=== PATIENT | female | born 1945 | race Caucasian/White ===

== ENCOUNTER 2017-11-04 11:56 | Emergency (ER) | payer MEDICARE, SELFPAY ==
[2017-11-04 12:01] VITALS: BP 135/87; PULSE 100; RESP 20; TEMP 36.9; O2SAT 100; BMI 18.0
--- NOTE | 2017-11-04 13:28 | ED_ITS ---
HPI - Abdominal Pain <Iraida Fitzpatrick PA-C - Last Filed: 11/04/17 17:03> General Chief Complaint: Abdominal Pain Stated Complaint: dizziness, nausea Time Seen by Provider: 11/04/17 12:24 Source: patient Mode of arrival: ambulatory Limitations: no limitations History of Present Illness HPI narrative: This 71-year-old female complains of nausea and generalized weakness for the last 2 days. She states that she has been very stressed and anxious because she is in the process of moving, and she thinks that this is exacerbating her symptoms. She states that she has had some mild dry heaves at times but has not had vomiting. She denies any abdominal pain. She denies any changes in bowel movements, no urinary symptoms. She states she has had some intermittent chills and sweats but does not have a thermometer at home. She denies any chest pain, dyspnea, or wheeze. She states that she feels weak all over but not dizzy per se or faint. She denies feeling overtly suicidal, does admit that she is still feeling overwhelmed. Related Data Previous Rx's Medication Instructions Recorded amoxicillin-pot clavulanate 875 mg PO BID #20 tab 08/19/17 [Augmentin] lorazepam [Ativan] 1 mg PO BIDP PRN #5 tab 08/19/17 metoprolol tartrate 25 mg PO BID #30 tab 08/19/17 ondansetron [Zofran ODT] 4 mg PO Q6H PRN #5 tab 11/04/17 Allergies Allergy/AdvReac Type Severity Reaction Status Date / Time No Known Drug Allergies Allergy Verified 11/04/17 12:01 Review of Systems <Iraida Fitzpatrick PA-C - Last Filed: 11/04/17 17:03> Review of Systems All systems reviewed & are unremarkable except as noted in HPI and below Exam <Iraida Fitzpatrick PA-C - Last Filed: 11/04/17 17:03> Narrative Exam Narrative: GENERAL APPEARANCE: Patient appears comfortable resting in bed, intermittently tearful HEENT: PERRL, EOMI, no scleral icterus NECK: Supple LUNGS: Clear to auscultation bilaterally, coarse breath sounds. HEART: Rate and rhythm regular, normal S1 and S2, no S3 or S4. ABDOMEN: Soft, nontender, nondistended, bowel sounds present x 4 quadrants, no masses palpable, no hepatosplenomegaly. EXTREMITIES: No edema, no cyanosis DERMATOLOGIC: No jaundice or exanthem NEUROLOGIC: Alert and oriented with normal speech and coordination Initial Vital Signs Initial Vital Signs: Vital Signs Temperature 98.4 F 11/04/17 12:01 Pulse Rate 100 H 11/04/17 12:01 Respiratory Rate 20 11/04/17 12:01 Blood Pressure 135/87 H 11/04/17 12:01 Pulse Oximetry 100 11/04/17 12:01 <Harry Buck MD - Last Filed: 11/04/17 17:50> Initial Vital Signs Initial Vital Signs: Vital Signs Temperature 98.4 F 11/04/17 12:01 Pulse Rate 100 H 11/04/17 12:01 Respiratory Rate 20 11/04/17 12:01 Blood Pressure 135/87 H 11/04/17 12:01 Pulse Oximetry 100 11/04/17 12:01 Course <Iraida Fitzpatrick PA-C - Last Filed: 11/04/17 17:03> Hospital Course: Prior to discharge patient is sleeping comfortably and has not had any vomiting. Tolerating oral fluids and crackers. She did not give me a pharmacy for prescription but I did print a prescription for her for some Zofran in case she does want to pickle pumper. Orders Ordered: ED Orders 11/04/17 13:11 Complete Blood Count AUTO DIFF Stat Comprehensive Metabolic Panel Stat Lipase Stat Discontinued Medications Sodium Chloride (Normal Saline 0.9%) 500 mls @ 1,000 mls/hr IV BOLUS ONE Stop: 11/04/17 14:15 Last Infusion: 11/04/17 14:26 Dose: 0 mls/hr Admin: 11/04/17 13:54 Dose: 1,000 mls/hr Sodium Chloride (Normal Saline 0.9%) 500 mls @ 1,000 mls/hr IV BOLUS ONE Stop: 11/04/17 14:26 Last Infusion: 11/04/17 15:10 Dose: 0 mls/hr Admin: 11/04/17 14:26 Dose: 1,000 mls/hr Ondansetron HCl (Zofran) 4 mg IV NOW ONE Stop: 11/04/17 13:47 Last Admin: 11/04/17 13:54 Dose: 4 mg Vital Signs - 8 hr 11/04/17 12:01 11/04/17 14:48 Temperature 98.4 F Pulse Rate 100 H 70 Respiratory Rate 20 17 Blood Pressure 135/87 H Blood Pressure [Left Arm] 137/97 H Pulse Oximetry 100 98 <Harry Buck MD - Last Filed: 11/04/17 17:50> Orders Ordered: ED Orders 11/04/17 13:11 Complete Blood Count AUTO DIFF Stat Comprehensive Metabolic Panel Stat Lipase Stat Discontinued Medications Sodium Chloride (Normal Saline 0.9%) 500 mls @ 1,000 mls/hr IV BOLUS ONE Stop: 11/04/17 14:15 Last Infusion: 11/04/17 14:26 Dose: 0 mls/hr Admin: 11/04/17 13:54 Dose: 1,000 mls/hr Sodium Chloride (Normal Saline 0.9%) 500 mls @ 1,000 mls/hr IV BOLUS ONE Stop: 11/04/17 14:26 Last Infusion: 11/04/17 15:10 Dose: 0 mls/hr Admin: 11/04/17 14:26 Dose: 1,000 mls/hr Ondansetron HCl (Zofran) 4 mg IV NOW ONE Stop: 11/04/17 13:47 Last Admin: 11/04/17 13:54 Dose: 4 mg Vital Signs - 8 hr 11/04/17 12:01 11/04/17 14:48 Temperature 98.4 F Pulse Rate 100 H 70 Respiratory Rate 20 17 Blood Pressure 135/87 H Blood Pressure [Left Arm] 137/97 H Pulse Oximetry 100 98 MDM - Abdominal Pain <Iraida Fitzpatrick PA-C - Last Filed: 11/04/17 17:03> Lab Data Attestation: I reviewed the patient's lab results. Result diagrams: 11/04/17 13:11 11/04/17 13:11 Lab Results 11/04/17 11/04/17 Range/Units 13:11 13:11 WBC 7.5 (4.5-11.0) X10^3/uL RBC 4.49 (4.0-5.2) X10^6/uL Hgb 13.9 (12.0-16.0) g/dL Hct 41.0 (36-46) % MCV 91.3 (80-100) fL MCH 31.1 (26-34) PG MCHC 34.0 (30-36) % RDW 13.9 (11.6-14.8) % Plt Count 305 (150-400) X10^3/uL Neut % (Auto) 69.4 (50-75) % Lymph % (Auto) 21.5 L (25-40) % [place] % (Auto) 5.9 (3-14) % Eos % (Auto) 2.4 (2-4) % Baso % (Auto) 0.8 (0-2) % Neut # (Auto) 5200 (2269-5675) /uL Sodium 141 (137-145) mmol/L Potassium 4.0 (3.4-5.1) mmol/L Chloride 105.0 (98-107) mmol/L Carbon Dioxide 23.0 (22-32) mmol/L BUN 18.0 H (7-17) mg/dL Creatinine 0.80 (0.52-1.04) mg/dL Estimated GFR > 60.0 (>60) mL/min BUN/Creatinine Ratio 22.5 H (6-22) Glucose 97 (80-110) mg/dL Calcium 8.8 (8.4-10.2) mg/dL Total Bilirubin 0.9 (0.2-1.3) mg/dL AST 29 (14-36) IU/L ALT 34 (9-52) IU/L Alkaline Phosphatase 78 (38-126) U/L Total Protein 7.2 (6.3-8.2) g/dL Albumin 4.0 (3.5-5.0) g/dL Globulin 3.2 (1.7-4.1) g/dL Albumin/Globulin Ratio 1.3 (1.0-2.8) Lipase 217 (23-300) U/L <Harry Buck MD - Last Filed: 11/04/17 17:50> Lab Data Lab Results 11/04/17 11/04/17 Range/Units 13:11 13:11 WBC 7.5 (4.5-11.0) X10^3/uL RBC 4.49 (4.0-5.2) X10^6/uL Hgb 13.9 (12.0-16.0) g/dL Hct 41.0 (36-46) % MCV 91.3 (80-100) fL MCH 31.1 (26-34) PG MCHC 34.0 (30-36) % RDW 13.9 (11.6-14.8) % Plt Count 305 (150-400) X10^3/uL Neut % (Auto) 69.4 (50-75) % Lymph % (Auto) 21.5 L (25-40) % [place] % (Auto) 5.9 (3-14) % Eos % (Auto) 2.4 (2-4) % Baso % (Auto) 0.8 (0-2) % Neut # (Auto) 5200 (0551-9553) /uL Sodium 141 (137-145) mmol/L Potassium 4.0 (3.4-5.1) mmol/L Chloride 105.0 (98-107) mmol/L Carbon Dioxide 23.0 (22-32) mmol/L BUN 18.0 H (7-17) mg/dL Creatinine 0.80 (0.52-1.04) mg/dL Estimated GFR > 60.0 (>60) mL/min BUN/Creatinine Ratio 22.5 H (6-22) Glucose 97 (80-110) mg/dL Calcium 8.8 (8.4-10.2) mg/dL Total Bilirubin 0.9 (0.2-1.3) mg/dL AST 29 (14-36) IU/L ALT 34 (9-52) IU/L Alkaline Phosphatase 78 (38-126) U/L Total Protein 7.2 (6.3-8.2) g/dL Albumin 4.0 (3.5-5.0) g/dL Globulin 3.2 (1.7-4.1) g/dL Albumin/Globulin Ratio 1.3 (1.0-2.8) Lipase 217 (23-300) U/L Discharge Plan Departure Patient Disposition: Home, Self-Care Clinical Impression: Nausea alone, Dehydration Discharge Date/Time: 11/04/17 15:42 Interventions: ED Discharge Assessment Last Done: 11/04/17 15:41 Instructions: DI for Nausea -- Adult Activity Restrictions/Additional Instructions: Please drink plenty of clear fluids today. Have small, frequent, bland snacks, such as crackers, broth, bananas. Add back eggs, baked potato, white rice, white bread and other bland foods 1st to make sure that you can tolerate your usual diet. Return if you have any acutely worsening symptoms. Prescriptions: New ondansetron [Zofran ODT] 4 mg tablet,disintegrating 4 mg PO Q6H PRN (Reason: nausea) Qty: 5 RF: 0 No Action lorazepam [Ativan] 1 MG tablet 1 mg PO BIDP PRNQty: 5 RF: 0 amoxicillin-pot clavulanate [Augmentin] 875 MG/125 MG tablet 875 mg PO BID Qty: 20 RF: 0 metoprolol tartrate 25 MG tablet 25 mg PO BID Qty: 30 RF: 0 Referrals: Michelle Zimmerman ND [Non-Staff] - <Harry Buck MD - Last Filed: 11/04/17 17:50> Cosign ED Attending Cosignature Attestation: I was the attending of record and available in the ED. I attest to the documentation and agree with the assessment and plan.
[2017-11-04] MEDS: ONDANSETRON 4 MG/2 ML INJ IV (13:54)
[2017-11-04] MEDS: SODIUM CHLORIDE 0.9% 500 ML 1000 ML IV ×2 (13:54→14:26)
[2017-11-04 14:07] LABS: Add Manual Diff / Slide Review NO; Basophils Percent Auto 0.8 % (0-2); Eosinophils Percent Auto 2.4 % (2-4); Hemoglobin 13.9 g/dL (12.0-16.0); Lymphocytes Percent Auto 21.5 % (25-40); Mean Corpuscular Hemoglobin 31.1 PG (26-34); Mean Corpuscular Volume 91.3 fL (80-100); Monocytes Percent Auto 5.9 % (3-14); Neutrophils Absolute Auto 5200 /uL (3000-5900); Neutrophils Percent Auto 69.4 % (50-75); Platelet Count 305 X10^3/uL (150-400); Red Blood Cell Count 4.49 X10^6/uL (4.0-5.2); Red Cell Distribution Width 13.9 % (11.6-14.8); White Blood Cell Count 7.5 X10^3/uL (4.5-11.0)
[2017-11-04 14:10] LABS: HEMOLYSIS < 15 (0-50); Sodium 141 mmol/L (137-145)
[2017-11-04 14:27] LABS: Alanine Aminotransferase 34 IU/L (9-52); Albumin Globulin Ratio 1.3 (1.0-2.8); Alkaline Phosphatase 78 U/L (38-126); Aspartate Aminotransferase 29 IU/L (14-36); BUN Creatinine Ratio 22.5 (6-22); Bilirubin Total 0.9 mg/dL (0.2-1.3); Calcium 8.8 mg/dL (8.4-10.2); Estimated Glomerular Filt Rate > 60.0 mL/min (>60); Globulin 3.2 g/dL (1.7-4.1); Glucose 97 mg/dL (80-110); Lipase 217 U/L (23-300); Total Protein 7.2 g/dL (6.3-8.2)
[2017-11-04 14:48] VITALS: BP 137/97; PULSE 70; RESP 17; O2SAT 98
== END 2017-11-04 15:42 | disposition home or self-care (01) ==
PROVIDERS: Emergency Provider Internal Medicine
DX: R11.0 Nausea (principal); E86.0 Dehydration
CPT/HCPCS: 80053; 83690; 85025; 96361; 96374; 99283; 99284; J2405

== ENCOUNTER 2018-03-05 03:28 | Emergency (ER) | payer MEDICARE, SELFPAY ==
[2018-03-05 04:01] VITALS: BP 160/100; PULSE 101; RESP 20; TEMP 36.7; O2SAT 98; BMI 19.7
[2018-03-05] MEDS: IBUPROFEN 400 MG TABLET 800 MG PO (04:43)
[2018-03-05] MEDS: LORazepam 0.5 MG TABLET 1 MG PO (04:43)
[2018-03-05 04:55] LABS: Add Manual Diff / Slide Review NO; Basophils Percent Auto 0.9 % (0-2); Eosinophils Percent Auto 4.2 % (2-4); Hematocrit 34.8 % (36-46); Hemoglobin 11.7 g/dL (12.0-16.0); Lymphocytes Percent Auto 26.4 % (25-40); Mean Corpuscular HGB Conc 33.7 % (30-36); Mean Corpuscular Hemoglobin 31.3 PG (26-34); Monocytes Percent Auto 9.4 % (3-14); Neutrophils Absolute Auto 4700 /uL (3000-5900); Neutrophils Percent Auto 59.1 % (50-75); Platelet Count 196 X10^3/uL (150-400); Red Blood Cell Count 3.74 X10^6/uL (4.0-5.2); Red Cell Distribution Width 14.4 % (11.6-14.8)
[2018-03-05 04:59] LABS: Alanine Aminotransferase 32 IU/L (9-52); Albumin 4.2 g/dL (3.5-5.0); Albumin Globulin Ratio 1.4 (1.0-2.8); Alkaline Phosphatase 63 U/L (38-126); Aspartate Aminotransferase 34 IU/L (14-36); Bilirubin Total 0.8 mg/dL (0.2-1.3); Blood Urea Nitrogen 23 mg/dL (7-17); Calcium 8.7 mg/dL (8.4-10.2); Carbon Dioxide 26 mmol/L (22-32); Chloride 109 mmol/L (98-107); Estimated Glomerular Filt Rate 54.8 mL/min (>60); Ethanol (ETOH) < 10 mg/dL; Globulin 2.9 g/dL (1.7-4.1); Glucose 103 mg/dL (80-110); HEMOLYSIS < 15 (0-50); Potassium 3.5 mmol/L (3.4-5.1); Sodium 146 mmol/L (137-145); Total Protein 7.1 g/dL (6.3-8.2)
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
[2018-03-05 05:34] LABS: Thyroid Stimulating Hormone 0.53 uIU/mL (0.47-4.68)
--- NOTE | 2018-03-05 07:42 | PC.NURSE ---
social service to see
[2018-03-05 08:12] VITALS: BP 150/96; PULSE 78; RESP 18; O2SAT 98
[2018-03-05 08:31] LABS: Urine Amphetamines Positive (Negative); Urine Barbiturates Negative (Negative); Urine Benzodiazepines Positive (Negative); Urine Cocaine Negative (Negative); Urine MDMA Negative (Negative); Urine Methadone Negative (Negative); Urine Methamphetamines Positive (Negative); Urine Morphine/Opi cutoff 2000 Negative (Negative); Urine Phencyclidine Negative (Negative); Urine Tetrahydrocannabinol Negative (Negative)
[2018-03-05 08:32] LABS: Urine Oxycodone Negative (Negative); Urine Tricyclic Antidepressant Negative (Negative)
--- NOTE | 2018-03-05 11:17 | PC.NURSE ---
social service here/ states will attempt for bed
[2018-03-05 11:21] LABS: Acetaminophen < 10 ug/mL (10-30)
[2018-03-05 11:22] LABS: Salicylate < 1.0 mg/dL (<20)
--- NOTE | 2018-03-05 12:03 | PC.NURSE ---
sitter here to observe pt 1:1, in room 8, sliding door partially closed/ pt not involunary at this point. has been sleeping/ no restraint.
--- NOTE | 2018-03-05 12:16 | PC.NURSE ---
Pt sleeping, respirations even/unlabored.
--- NOTE | 2018-03-05 12:33 | PC.NURSE ---
Pt sleeping, respirations even/unlabored.
--- NOTE | 2018-03-05 12:43 | PC.NURSE ---
Pt is awake, eating lunch, and was given water.
--- NOTE | 2018-03-05 12:52 | PC.NURSE ---
Pt sleeping again, respirations continue to be even/unlabored.
--- NOTE | 2018-03-05 13:09 | PC.NURSE ---
Pt awake and continuing to eat lunch.
--- NOTE | 2018-03-05 13:22 | PC.NURSE ---
Pt is eating lunch and given an additional 400ml of water.
--- NOTE | 2018-03-05 13:27 | PC.NURSE ---
Pt sleeping again, respirations continue to be even/unlabored.
--- NOTE | 2018-03-05 13:42 | PC.NURSE ---
Pt sleeping, respirations even/unlabored.
--- NOTE | 2018-03-05 14:30 | PC.NURSE ---
Pt woke up to talk to D/C Regrinder Operator, and then wanted to call friends/family to let them know what was going on. She wasn't able to reach them and said she would try later.
[2018-03-05] MEDS: ACETAMINOPHEN 325 MG TABLET 650 MG PO (14:45)
--- NOTE | 2018-03-05 14:51 | PC.NURSE ---
Pt is resting, breathing remains constant and unlabored.
[2018-03-05 15:02] VITALS: BP 114/84; PULSE 77; RESP 20; TEMP 36.7; O2SAT 99
--- NOTE | 2018-03-05 15:16 | PC.NURSE ---
Pt sleeping, respirations even/unlabored.
--- NOTE | 2018-03-05 15:34 | PC.NURSE ---
Pt sleeping, respirations even/unlabored.
--- NOTE | 2018-03-05 16:24 | CM.SWNOTE ---
FUSELAGE FRAMER/Note: Received call from ED staff this AM re: suicidal 72yr old female. Patient came to . Emergency Department reporting depression and that she feels like harming herself. Primary payor is 1)Medicare. No PCP identified. 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 Patient requiring 1mg of lorazepam at approximately 7:00am for agitation. FUSELAGE FRAMER met with patient explained FUSELAGE FRAMER role. Patient slightly drowsy at time of visit but easily to arouse. Patient reports that she has been homeless for 2 days. Patient was staying with ex boyfriend/Ephraim but reports that he was drinking a lot and she wanted to leave. Patient very difficult to understand secondary to being tearful, anxious, and upset. Patient also appears very forgetful of events unclear if this is purposeful. Patient denies being on any current medication and is not being seen by PCP or mental health provider. FUSELAGE FRAMER called [facility] to verify. They do have patient in system but she is not enrolled. Patient admits to depression since 7th grade. Patient does report that she has had previous suicide attempts but does not remember when. FUSELAGE FRAMER asked patient if she was currently suicidal or felt like killing herself. Patient answered yes. Asked patient about current plan. Patient reports that she will go to the drug store and buy over the counter medicine and take as much as she needs too. Patient agreeable to get assistance and go inpatient for mental health stabilization. Placed call to state and they report that [facility] has bed. Placed call spoke with Jacqueline. All clinical faxed to [phone]. After review by [facility] they have agreed to accept. Accepting MD is Dr. Severino. Patient going to [facility] in [place]: [id number] [address] [facility]# [phone]. RN/Rosenda given number to call report. Patient provided with brochure for facility. ED staff to coordinate non-urgent BLS transport. No additional needs identified. JABIER Miller
== END 2018-03-05 15:55 ==
PROVIDERS: Emergency Medicine; Emergency Provider Emergency Medicine
DX: R45.851 Suicidal ideations (principal)
CPT/HCPCS: 36415; 80053; 80305; 80320; 80329; 84443; 85025; 99284; G0480

== ENCOUNTER 2018-05-20 16:49 | Emergency (ER) | payer MEDICARE, SELFPAY ==
[2018-05-20 16:58] VITALS: BP 139/103; PULSE 90; RESP 18; TEMP 36.6; O2SAT 95; BMI 18.8
--- NOTE | 2018-05-20 17:39 | ED.SKABFB ---
HPI - Skin/Abscess/Foreign Bdy <JAQUELIN Mendez - Last Filed: 05/20/18 18:05> General Chief complaint: Skin/Abscess/Foreign Body Stated complaint: sore on back Time Seen by Provider: 05/20/18 17:26 Source: patient Mode of arrival: ambulatory Limitations: no limitations History of Present Illness HPI narrative: Patient is a 72 year-old female with history of depression who is an everyday smoker who presents with chief complaint of rash on her lower going around the right side to her inguinal area. She states this started 3-4 days ago. She states it is blistery and crusty. She denies any chest pain shortness of breath fevers malaise nausea vomiting or diarrhea. She states that the area is very painful prior to the rash developing. Related Data Previous Rx's Medication Instructions Recorded gabapentin 100 mg PO TID #20 cap 05/20/18 lidocaine 2 patch TOP DAILY #15 each 05/20/18 prednisone 40 mg PO DAILY #8 tab 05/20/18 valacyclovir 1,000 mg PO TID 10 Days #30 tab 05/20/18 Allergies Allergy/AdvReac Type Severity Reaction Status Date / Time No Known Drug Allergies Allergy Verified 05/20/18 17:00 Review of Systems <CHARLOTTE Mendez - Last Filed: 05/20/18 18:05> Review of Systems GENERAL: Denies chills, fatigue, malaise, fever, sweats. HEENT: Denies sinus pain, ear pain, sore throat, difficulty swallowing, dizziness. RESPIRATORY: Denies dyspnea, cough, wheezing, hemoptysis, sputum. CARDIOVASCULAR: Denies chest pain, palpitations, orthopnea, edema, GASTROINTESTINAL: Denies nausea, vomiting, abdominal pain, diarrhea, constipation, melena. : Denies dysuria, frequency, incontinence, hematuria, urinary retention. MUSCULOSKELETAL: denies weakness, joint pain, or bony pain SKIN: See HPI NEUROLOGIC: Denies weakness, headache, numbness, change in speech, confusion, seizures, incoordination. PSYCHIATRIC: No concerning psychosocial issues. 12 point review of systems is negative except for those stated above Exam <CHARLOTTE Mendez - Last Filed: 05/20/18 18:05> Narrative Exam Narrative: GENERAL: elderly thin woman. HEAD: Atraumatic. Normocephalic. No temporal or scalp tenderness. EYES: Pupils equal round and reactive. Extraocular motions intact. No scleral icterus. No injection or drainage. ENT: Nose without bleeding, purulent drainage or septal hematoma. Throat without erythema, tonsillar hypertrophy or exudate. Uvula midline. Airway patent. NECK: Trachea midline. No JVD or lymphadenopathy. Supple, nontender, no meningeal signs. CARDIOVASCULAR: Regular rate and rhythm without murmurs, gallops, or rubs. RESPIRATORY: No increased respiratory effort. No accessory muscle use. No cough on exam. EXTREMITIES: No clubbing, cyanosis, or edema. No joint tenderness, effusion, or edema noted. BACK: Nontender without deformity or crepitance. No flank tenderness. NEURO: AOx3. SKIN: vesicular rash starting on right gluteal area reaching around to right inguinal area. Multiple pustules and crusting noted. No spreading erythema. Initial Vital Signs Initial Vital Signs: Vital Signs Temperature 97.8 F 05/20/18 16:58 Pulse Rate 90 05/20/18 16:58 Respiratory Rate 18 05/20/18 16:58 Blood Pressure 139/103 H 05/20/18 16:58 Pulse Oximetry 95 05/20/18 16:58 <Deisy Drew DO - Last Filed: 05/22/18 09:38> Initial Vital Signs Initial Vital Signs: Vital Signs Temperature 97.8 F 05/20/18 16:58 Pulse Rate 90 05/20/18 16:58 Respiratory Rate 18 05/20/18 16:58 Blood Pressure 139/103 H 05/20/18 16:58 Pulse Oximetry 95 05/20/18 16:58 Course <JAQUELIN Mendez - Last Filed: 05/20/18 18:05> Orders Ordered: Discontinued Medications Acyclovir (Zovirax) 800 mg PO NOW ONE Stop: 05/20/18 17:53 Last Admin: 05/20/18 18:00 Dose: 800 mg Gabapentin (Neurontin) 100 mg PO NOW ONE Stop: 05/20/18 17:39 Last Admin: 05/20/18 18:00 Dose: 100 mg Prednisone (Deltasone) 40 mg PO NOW ONE Stop: 05/20/18 17:38 Last Admin: 05/20/18 17:46 Dose: 40 mg Valacyclovir HCl (Valtrex) 1,000 mg PO NOW ONE Stop: 05/20/18 17:36 Vital Signs - 8 hr 05/20/18 16:58 05/20/18 18:00 Temperature 97.8 F Pulse Rate 90 105 H Respiratory Rate 18 20 Blood Pressure 139/103 H 130/97 H Pulse Oximetry 95 95 <Deisy Drew DO - Last Filed: 05/22/18 09:38> Orders Ordered: Discontinued Medications Acyclovir (Zovirax) 800 mg PO NOW ONE Stop: 05/20/18 17:53 Last Admin: 05/20/18 18:00 Dose: 800 mg Gabapentin (Neurontin) 100 mg PO NOW ONE Stop: 05/20/18 17:39 Last Admin: 05/20/18 18:00 Dose: 100 mg Prednisone (Deltasone) 40 mg PO NOW ONE Stop: 05/20/18 17:38 Last Admin: 05/20/18 17:46 Dose: 40 mg Valacyclovir HCl (Valtrex) 1,000 mg PO NOW ONE Stop: 05/20/18 17:36 Vital Signs - 8 hr 05/20/18 16:58 05/20/18 18:00 Temperature 97.8 F Pulse Rate 90 105 H Respiratory Rate 18 20 Blood Pressure 139/103 H 130/97 H Pulse Oximetry 95 95 MDM - Skin/Abscess/Foreign Bdy <JAQUELIN Mendez - Last Filed: 05/20/18 18:05> MDM Narrative Medical decision making narrative: Patient's exam is consistent with shingles. The son initiate treatment with Valcyte clear. Given her amount of pain, I will give her prescriptions for lidocaine patches, prednisone and gabapentin. I discussed with the patient the etiology of the shingles virus. Discussed at length follow-up primary care provider if worsening or no improvement. Discharge Plan Departure Patient Disposition: Home Clinical Impression: Shingles outbreak Discharge Date/Time: 05/20/18 18:01 Interventions: ED Discharge Assessment Last Done: 05/20/18 18:00 Instructions: Shingles (Herpes Zoster) (Alternative Therapy), DI for Shingles Activity Restrictions/Additional Instructions: The rash that you have is from the shingles virus. Please start IV antiviral medication that IV given you a prescription of. I have given you several options for pain control as well. Please follow-up with primary care provider if worsening or no improvement. Prescriptions: New valacyclovir 1 gram tablet 1,000 mg PO TID 10 Days Qty: 30 RF: 0 prednisone 20 mg tablet 40 mg PO DAILY Qty: 8 RF: 0 gabapentin 100 mg capsule 100 mg PO TID Qty: 20 RF: 0 lidocaine 5 % adhesive patch,medicated 2 patch TOP DAILY Qty: 15 RF: 0 <Deisy Drew, DO - Last Filed: 05/22/18 09:38> Cosign ED Attending Cosdannyature Attestation: I was immediately available in the department for consultation. Documentation has been reviewed. I agree with assessment and plan.
[2018-05-20] MEDS: predniSONE 20 MG TABLET 40 MG PO (17:46)
[2018-05-20 18:00] VITALS: BP 130/97; PULSE 105; RESP 20; O2SAT 95
[2018-05-20] MEDS: ACYCLOVIR 200 MG CAPSULE 800 MG PO (18:00)
[2018-05-20] MEDS: GABAPENTIN 100 MG CAPSULE PO (18:00)
== END 2018-05-20 18:01 | disposition home or self-care (01) ==
PROVIDERS: Emergency Provider Nurse Practitioner Family; PCP Nurse Practitioner
DX: B02.9 Zoster without complications (principal)
CPT/HCPCS: 99282; 99283

== ENCOUNTER 2018-10-02 15:27 | Emergency (ER) | payer MEDICARE, SELFPAY ==
[2018-10-02 15:33] VITALS: BP 166/122; PULSE 91; RESP 18; TEMP 36.4; O2SAT 99; BMI 20.1
--- NOTE | 2018-10-02 15:34 | ED.ABDPAIN ---
HPI - Abdominal Pain <Iraida Fitzpatrick PA-C - Last Filed: 10/02/18 21:34> General Chief Complaint: Abdominal Pain Stated Complaint: THINKS HER HEPATITIS IS ACTING UP Time Seen by Provider: 10/02/18 15:34 Source: patient Mode of arrival: ambulatory Limitations: no limitations History of Present Illness HPI narrative: This 72-year-old female states she comes in due to concern for recurrent pancreatitis. She states that has had midline epigastric pain for about the last day and half, and feels ?dizzy?, which she describes as sensation of generalized weak when she stands up. She states that she has had full lot of nausea but no vomiting, and the nausea is worse when she is standing. She has not had any fever, chills, sweats. she denies any urinary symptoms or hematuria. She denies any diarrhea or bowel habit change. She states that pain seems constant without exacerbating or alleviating features. She states that she has been eating a little bit and has been trying to drink fluids. She states that she has had some alcohol but typically 1 beer a day recently, not drinking to excess. She denies any drug use, denies any new or changed medications. She denies any recent exposures, rashes, chest pain or dyspnea or other new complaints on systems review Related Data Previous Rx's Medication Instructions Recorded omeprazole 20 mg PO BID #20 cap 10/02/18 ondansetron 4 mg PO Q8H PRN #10 tab 10/02/18 Allergies Allergy/AdvReac Type Severity Reaction Status Date / Time No Known Drug Allergies Allergy Verified 10/02/18 15:33 Review of Systems <Iraida Fitzpatrick PA-C - Last Filed: 10/02/18 21:34> Review of Systems ROS Unobtainable: All systems reviewed & are unremarkable except as noted in HPI and below PFSH <Iraida Fitzpatrick PA-C - Last Filed: 10/02/18 21:34> Medical History (Updated 10/02/18 @ 18:58 by Iraida Fitzpatrick PA-C) Pancreatitis (Resolved) Depression with anxiety (Chronic) Anxiety and depression (Chronic) Hepatitis B (Chronic) Suicide attempt (Resolved) Suicide attempt (Resolved) Surgical History (Updated 10/02/18 @ 15:51 by Iraida Fishfader, PA-C) H/O: hysterectomy (Resolved) Social History Smoking Status: Current every day smoker Tobacco: How many years used: 15 alcohol intake: current substance use type: does not use Social History Smoking Status: Current every day smoker Tobacco: How many years used: 15 alcohol intake: current substance use type: does not use Exam <Iraida Fitzpatrick PA-C - Last Filed: 10/02/18 21:34> Narrative Exam Narrative: GENERAL APPEARANCE: Patient sitting comfortably, in no distress. HEENT: PERRL, EOMI, no scleral icterus, normal oropharynx NECK: Supple LUNGS: Clear to auscultation bilaterally with coarse breath sounds, no cough. HEART: Rate and rhythm regular, normal S1 and S2, no S3 or S4. ABDOMEN: Soft, nondistended, bowel sounds present x 4 quadrants, no masses palpable, moderate epigastric and right mid upper quadrant tenderness without guarding or rebound, negative Fuentes sign. liver border is palpable 1 cm beyond costal margin. No splenomegaly EXTREMITIES: No edema, no calf tenderness DERMATOLOGIC: No jaundice or exanthem NEUROLOGIC: Alert and oriented with normal speech and coordination Initial Vital Signs Initial Vital Signs: Vital Signs Temperature 97.6 F 10/02/18 15:33 Pulse Rate 91 H 10/02/18 15:33 Respiratory Rate 18 10/02/18 15:33 Blood Pressure 166/122 H 10/02/18 15:33 Pulse Oximetry 99 10/02/18 15:33 <Deisy Drew DO - Last Filed: 10/03/18 14:59> Initial Vital Signs Initial Vital Signs: Vital Signs Temperature 97.6 F 10/02/18 15:33 Pulse Rate 91 H 10/02/18 15:33 Respiratory Rate 18 10/02/18 15:33 Blood Pressure 166/122 H 10/02/18 15:33 Pulse Oximetry 99 10/02/18 15:33 Course <Iraida Fitzpatrick PA-C - Last Filed: 10/02/18 21:34> Additional Information: Reviewed findings with patient, likely some element of chronic pancreatitis, but no acute findings. She expresses relief that she does not need admission to hospital today. She has not had vomiting. Advised clear fluids/clear diet, and starting small amounts of bland food in a day or 2 if tolerating that. Advised absolutely no alcohol, and she agrees. Prescriptions for Zofran and PPI given. Discussed the need for her to follow up with a primary care provider (she has not established care with 1 locally despite advice on previous visits). She was given the Resource Center number and advised to call in the morning to help with this. She agreed to return if any acutely worsening pain or new symptoms such as vomiting or fever. Orders Ordered: Discontinued Medications Sodium Chloride (Normal Saline 0.9%) 1,000 mls @ 1,000 mls/hr IV BOLUS ONE Stop: 10/02/18 16:42 Last Admin: 10/02/18 16:05 Dose: 1,000 mls/hr Ketorolac Tromethamine (Toradol) 30 mg IV NOW ONE Stop: 10/02/18 15:44 Last Admin: 10/02/18 16:04 Dose: 30 mg Ondansetron HCl (Zofran Odt) 4 mg PO NOW ONE Stop: 10/02/18 15:44 Ondansetron HCl (Zofran) 4 mg IV NOW ONE Stop: 10/02/18 16:05 Last Admin: 10/02/18 16:06 Dose: 4 mg Pantoprazole Sodium (Protonix) 40 mg IV NOW ONE Stop: 10/02/18 15:44 Last Admin: 10/02/18 16:04 Dose: 40 mg Vital Signs - 8 hr 10/02/18 15:33 Temperature 97.6 F Pulse Rate 91 H Respiratory Rate 18 Blood Pressure 166/122 H Pulse Oximetry 99 <Deisy Drew, - Last Filed: 10/03/18 14:59> Orders Ordered: Discontinued Medications Sodium Chloride (Normal Saline 0.9%) 1,000 mls @ 1,000 mls/hr IV BOLUS ONE Stop: 10/02/18 16:42 Last Admin: 10/02/18 16:05 Dose: 1,000 mls/hr Ketorolac Tromethamine (Toradol) 30 mg IV NOW ONE Stop: 10/02/18 15:44 Last Admin: 10/02/18 16:04 Dose: 30 mg Ondansetron HCl (Zofran Odt) 4 mg PO NOW ONE Stop: 10/02/18 15:44 Ondansetron HCl (Zofran) 4 mg IV NOW ONE Stop: 10/02/18 16:05 Last Admin: 10/02/18 16:06 Dose: 4 mg Pantoprazole Sodium (Protonix) 40 mg IV NOW ONE Stop: 10/02/18 15:44 Last Admin: 10/02/18 16:04 Dose: 40 mg Vital Signs - 8 hr 10/02/18 15:33 Temperature 97.6 F Pulse Rate 91 H Respiratory Rate 18 Blood Pressure 166/122 H Pulse Oximetry 99 MDM - Abdominal Pain <Iraida Fitzpatrick PA-C - Last Filed: 10/02/18 21:34> Lab Data Attestation: I reviewed the patient's lab results. Result diagrams: 10/02/18 15:40 10/02/18 15:40 Lab Results 10/02/18 10/02/18 10/02/18 Range/Units 15:40 15:40 15:40 WBC 7.8 (4.5-11.0) X10^3/uL RBC 4.62 (4.0-5.2) X10^6/uL Hgb 14.6 (12.0-16.0) g/dL Hct 42.8 (36-46) % MCV 92.8 (80-100) fL MCH 31.7 (26-34) PG MCHC 34.2 (30-36) % RDW 14.0 (11.6-14.8) % Plt Count 313 (150-400) X10^3/uL Neut % (Auto) 63.7 (50-75) % Lymph % (Auto) 24.4 L (25-40) % Lawrence % (Auto) 7.5 (3-14) % Eos % (Auto) 3.5 (2-4) % Baso % (Auto) 0.9 (0-2) % Neut # (Auto) 5000 (7336-1909) /uL Lymph # (Auto) 1900 (3783-7413) /uL Lawrence # (Auto) 600 (0-900) /uL Eos # (Auto) 300 (0-450) /uL Baso # (Auto) 100 (0-100) /uL PT 10.2 (10.1-12.7) SECONDS INR 0.9 (0.9-1.3) APTT 26 L (26.4-36.2) SECONDS Sodium 138 (137-145) mmol/L Potassium 4.0 (3.4-5.1) mmol/L Chloride 101 (98-107) mmol/L Carbon Dioxide 29 (22-32) mmol/L BUN 19 H (7-17) mg/dL Creatinine 0.80 (0.52-1.04) mg/dL Estimated GFR > 60.0 (>60) mL/min BUN/Creatinine Ratio 23.8 H (6-22) Glucose 103 (80-110) mg/dL Calcium 8.7 (8.4-10.2) mg/dL Total Bilirubin 0.6 (0.2-1.3) mg/dL AST 35 (14-36) IU/L ALT 39 (9-52) IU/L Alkaline Phosphatase 81 (38-126) U/L Total Protein 7.5 (6.3-8.2) g/dL Albumin 4.3 (3.5-5.0) g/dL Globulin 3.2 (1.7-4.1) g/dL Albumin/Globulin Ratio 1.3 (1.0-2.8) Lipase (23-300) U/L 10/02/18 Range/Units 15:40 WBC (4.5-11.0) X10^3/uL RBC (4.0-5.2) X10^6/uL Hgb (12.0-16.0) g/dL Hct (36-46) % MCV (80-100) fL MCH (26-34) PG MCHC (30-36) % RDW (11.6-14.8) % Plt Count (150-400) X10^3/uL Neut % (Auto) (50-75) % Lymph % (Auto) (25-40) % Lawrence % (Auto) (3-14) % Eos % (Auto) (2-4) % Baso % (Auto) (0-2) % Neut # (Auto) (0219-5123) /uL Lymph # (Auto) (4454-1242) /uL Lawrence # (Auto) (0-900) /uL Eos # (Auto) (0-450) /uL Baso # (Auto) (0-100) /uL PT (10.1-12.7) SECONDS INR (0.9-1.3) APTT (26.4-36.2) SECONDS Sodium (137-145) mmol/L Potassium (3.4-5.1) mmol/L Chloride (98-107) mmol/L Carbon Dioxide (22-32) mmol/L BUN (7-17) mg/dL Creatinine (0.52-1.04) mg/dL Estimated GFR (>60) mL/min BUN/Creatinine Ratio (6-22) Glucose (80-110) mg/dL Calcium (8.4-10.2) mg/dL Total Bilirubin (0.2-1.3) mg/dL AST (14-36) IU/L ALT (9-52) IU/L Alkaline Phosphatase (38-126) U/L Total Protein (6.3-8.2) g/dL Albumin (3.5-5.0) g/dL Globulin (1.7-4.1) g/dL Albumin/Globulin Ratio (1.0-2.8) Lipase 200 (23-300) U/L Point of care testing: Urine Dip Bedside Urine Glucose Negative Bedside Urine Bilirubin - Negative Bedside Urine Ketone - Negative Urine Specific [place] 1.010 Bedside Urine Occult Blood - Negative Bedside Urine pH 6.0 Bedside Urine Protein - Negative Bedside Urine Urobilinogen - Negative Bedside Urine Nitrite - Negative Bedside Urine Leukocytes - Negative Esterase Imaging Data US - abdomen: Radiologist's impression: [address] [address] Ultrasound Report Signed Patient: Janett Downs LMR#: [id number] : 8Acct:[id number] Age/Sex: 72 / FDate of Service: 10/02/18 Loc: ED Accession Number: [id number] Procedure: US abdomen complete Ordering Provider: Iraida Fitzpatrick P.A-C PROCEDURE: US ABDOMEN COMPLETE INDICATIONS: EPIGASTRIC PAIN, HISTORY OF PANCREATITIS TECHNIQUE: Real-time scanning was performed of the abdominal and retroperitoneal organs, with image documentation. COMPARISON: [facility], CT, CT ABDOMEN PELVIS W CON, 10/02/2018, 16:40. [facility], US, ABDOMEN COMPLETE, 11/16/2015, 21:07. FINDINGS: Liver: Liver is normal in size. The liver demonstrates an inhomogeneous appearance. Gallbladder: No findings of gallstones or sludge are seen. The gallbladder wall is not thickened, measuring 3 mm or less. No specific pericholecystic fluid is seen. The sonographic Fuentes sign is negative. Biliary ducts: Intrahepatic bile ducts are non-dilated. Extrahepatic bile duct caliber measures 5 mm. Normal is 6-7 mm or less in diameter, or 10 mm or less post-cholecystectomy. Pancreas: Visualized portions of the pancreas are sonographically normal. There is a 3 mm punctate echogenic focus seen within the body/tail of the pancreas. Spleen: Spleen is normal in size and homogeneous in echotexture. Kidneys: Kidneys are normal in size and echotexture. Right kidney measures 9 cm long; left kidney measures 10.1 cm long. No hydronephrosis or nephrolithiasis. No solid masses. The inferior aspect of the right kidney is obscured by bowel gas. Aorta: Visualized aorta is normal in caliber at less than 3 cm. Iliacs: Not seen, obscured by overlying bowel gas. IVC: Intrahepatic inferior vena cava is patent. Miscellaneous: No free abdominal fluid. IMPRESSION: No acute pancreatic abnormality is seen. Pancreatic calcification can be seen, which is consistent with chronic pancreatitis. The gallbladder demonstrates a normal sonographic appearance. No biliary dilatation is seen. Inhomogeneous liver, without a focal liver lesion identified. Dictated by: Andrea Doll M.D. on 10/02/2018 at 16:18 Approved by: Andrea Vick CT scan - abdomen: Radiologist's impression: [place] [address] CT Scan Report Signed Patient: Janett Downs LMR#: [id number] : 8Acct:[id number] Age/Sex: 72 / FDate of Service: 10/02/18 Loc: ED Accession Number: [id number] Procedure: CT abdomen pelvis w con Ordering Provider: Iraida Fitzpatrick P.A-C PROCEDURE: CT ABDOMEN PELVIS W CON INDICATIONS: epigastric pain/nausea TECHNIQUE: After the administration of intravenous contrast, 5 mm thick sections acquired from the diaphragm to the symphysis. 5 mm coronal and sagittal reformats were acquired. For radiation dose reduction, the following was used: automated exposure control, adjustment of mA and/or kV according to patient size. COMPARISON: [facility], US, US ABDOMEN COMPLETE, 10/02/2018, 16:00. [facility], US, ABDOMEN COMPLETE, 11/16/2015, 21:07. FINDINGS: Image quality: Excellent. ABDOMEN: Lung bases: There is minimal atelectasis or scarring in the lung bases. Heart size is normal. Solid organs: No focal hepatic lesions identified. The gallbladder is nondistended without calcified gallstones. Biliary system is non dilated. Pancreas enhances normally without peripancreatic fat stranding or fluid collections. Spleen is normal in size and enhancement. No adrenal nodules. Kidneys demonstrate no hydronephrosis. There is multifocal renal cortical thinning bilaterally likely representing sequela of prior infection, versus trauma or infarcts. Peritoneum and bowel: There is gastric wall thickening with mucosal enhancement suggestive of a nonspecific gastritis. There is also wall thickening of the proximal small bowel involving the duodenum and jejunum. Bowel loops are normal in caliber. The colon demonstrates mild segmental wall thickening within the descending and sigmoid colon. No free fluid or air. Nodes and vessels: No retroperitoneal or mesenteric adenopathy by size criteria. Aorta and inferior vena cava are normal in size. Miscellaneous: No ventral hernias. PELVIS: Genitourinary: Bladder wall thickness is normal. Miscellaneous: No inguinal hernias or adenopathy. Bones: No suspicious bony lesions. No vertebral body compression fractures. IMPRESSION: 1. Wall thickening of the stomach, proximal small bowel, and distal colon suggestive of a gastroenteritis. 2. Bilateral multifocal areas of renal cortical thinning likely represent sequelae of prior infection. The differential includes prior small infarcts or trauma. Dictated by: Jonathan Russo M.D. on 10/02/2018 at 17:41 Approved by: Jonathan Russo M.D. on 10/02/2018 at 17:46 <Deisy Drew, - Last Filed: 10/03/18 14:59> Lab Data Lab Results 10/02/18 10/02/18 10/02/18 Range/Units 15:40 15:40 15:40 WBC 7.8 (4.5-11.0) X10^3/uL RBC 4.62 (4.0-5.2) X10^6/uL Hgb 14.6 (12.0-16.0) g/dL Hct 42.8 (36-46) % MCV 92.8 (80-100) fL MCH 31.7 (26-34) PG MCHC 34.2 (30-36) % RDW 14.0 (11.6-14.8) % Plt Count 313 (150-400) X10^3/uL Neut % (Auto) 63.7 (50-75) % Lymph % (Auto) 24.4 L (25-40) % Lawrence % (Auto) 7.5 (3-14) % Eos % (Auto) 3.5 (2-4) % Baso % (Auto) 0.9 (0-2) % Neut # (Auto) 5000 (2723-8030) /uL Lymph # (Auto) 1900 (8849-8149) /uL Lawrence # (Auto) 600 (0-900) /uL Eos # (Auto) 300 (0-450) /uL Baso # (Auto) 100 (0-100) /uL PT 10.2 (10.1-12.7) SECONDS INR 0.9 (0.9-1.3) APTT 26 L (26.4-36.2) SECONDS Sodium 138 (137-145) mmol/L Potassium 4.0 (3.4-5.1) mmol/L Chloride 101 (98-107) mmol/L Carbon Dioxide 29 (22-32) mmol/L BUN 19 H (7-17) mg/dL Creatinine 0.80 (0.52-1.04) mg/dL Estimated GFR > 60.0 (>60) mL/min BUN/Creatinine Ratio 23.8 H (6-22) Glucose 103 (80-110) mg/dL Calcium 8.7 (8.4-10.2) mg/dL Total Bilirubin 0.6 (0.2-1.3) mg/dL AST 35 (14-36) IU/L ALT 39 (9-52) IU/L Alkaline Phosphatase 81 (38-126) U/L Total Protein 7.5 (6.3-8.2) g/dL Albumin 4.3 (3.5-5.0) g/dL Globulin 3.2 (1.7-4.1) g/dL Albumin/Globulin Ratio 1.3 (1.0-2.8) Lipase (23-300) U/L 10/02/18 Range/Units 15:40 WBC (4.5-11.0) X10^3/uL RBC (4.0-5.2) X10^6/uL Hgb (12.0-16.0) g/dL Hct (36-46) % MCV (80-100) fL MCH (26-34) PG MCHC (30-36) % RDW (11.6-14.8) % Plt Count (150-400) X10^3/uL Neut % (Auto) (50-75) % Lymph % (Auto) (25-40) % Lawrence % (Auto) (3-14) % Eos % (Auto) (2-4) % Baso % (Auto) (0-2) % Neut # (Auto) (2940-7633) /uL Lymph # (Auto) (9128-0667) /uL Lawrence # (Auto) (0-900) /uL Eos # (Auto) (0-450) /uL Baso # (Auto) (0-100) /uL PT (10.1-12.7) SECONDS INR (0.9-1.3) APTT (26.4-36.2) SECONDS Sodium (137-145) mmol/L Potassium (3.4-5.1) mmol/L Chloride (98-107) mmol/L Carbon Dioxide (22-32) mmol/L BUN (7-17) mg/dL Creatinine (0.52-1.04) mg/dL Estimated GFR (>60) mL/min BUN/Creatinine Ratio (6-22) Glucose (80-110) mg/dL Calcium (8.4-10.2) mg/dL Total Bilirubin (0.2-1.3) mg/dL AST (14-36) IU/L ALT (9-52) IU/L Alkaline Phosphatase (38-126) U/L Total Protein (6.3-8.2) g/dL Albumin (3.5-5.0) g/dL Globulin (1.7-4.1) g/dL Albumin/Globulin Ratio (1.0-2.8) Lipase 200 (23-300) U/L Point of care testing: Urine Dip Bedside Urine Glucose Negative Bedside Urine Bilirubin - Negative Bedside Urine Ketone - Negative Urine Specific [place] 1.010 Bedside Urine Occult Blood - Negative Bedside Urine pH 6.0 Bedside Urine Protein - Negative Bedside Urine Urobilinogen - Negative Bedside Urine Nitrite - Negative Bedside Urine Leukocytes - Negative Esterase Discharge Plan Departure Patient Disposition: Home Clinical Impression: Chronic pancreatitis Qualifiers: Pancreatitis type: unspecified pancreatitis type Qualified Code(s): K86.1 - Other chronic pancreatitis Discharge Date/Time: 10/02/18 19:03 Interventions: ED Discharge Assessment Last Done: 10/02/18 18:54 Instructions: Chronic Pancreatitis Activity Restrictions/Additional Instructions: As we talked about, you should return if you have acutely worsening pain, or if you develop new symptoms such as fever or protracted vomiting. please be sure to avoid all alcohol entirely. Drink plenty of clear fluids, and you can try clear foods like Jell-O and broth for the next day or 2. If you tolerate that, you can slowly advance your diet and at things like bananas and white rice and white bread. Gradually resume your usual diet. 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 Please be sure to call the hospital Resource Center to get help on setting up care with a primary care provider locally 1st thing in the morning. Their number is [phone]. Let them know you were seen in the emergency room today and we would like you to follow up this week Prescriptions: New omeprazole 20 mg capsule,delayed release(DR/EC) 20 mg PO BID Qty: 20 RF: 0 ondansetron 4 mg tablet,disintegrating 4 mg PO Q8H PRN (Reason: nausea and vomiting) Qty: 10 RF: 0 <Deisy Drew DO - Last Filed: 10/03/18 14:59> Cosdanny ED Attending Martha Attestation: I was immediately available in the department for consultation. Documentation has been reviewed. I agree with assessment and plan.
--- NOTE | 2018-10-02 15:44 | DI.US.S_ITS ---
PROCEDURE: US ABDOMEN COMPLETE INDICATIONS: EPIGASTRIC PAIN, HISTORY OF PANCREATITIS TECHNIQUE: Real-time scanning was performed of the abdominal and retroperitoneal organs, with image documentation. COMPARISON: [facility], CT, CT ABDOMEN PELVIS W CON, 10/02/2018, 16:40. [facility], US, ABDOMEN COMPLETE, 11/16/2015, 21:07. FINDINGS: Liver: Liver is normal in size. The liver demonstrates an inhomogeneous appearance. Gallbladder: No findings of gallstones or sludge are seen. The gallbladder wall is not thickened, measuring 3 mm or less. No specific pericholecystic fluid is seen. The sonographic Fuentes sign is negative. Biliary ducts: Intrahepatic bile ducts are non-dilated. Extrahepatic bile duct caliber measures 5 mm. Normal is 6-7 mm or less in diameter, or 10 mm or less post-cholecystectomy. Pancreas: Visualized portions of the pancreas are sonographically normal. There is a 3 mm punctate echogenic focus seen within the body/tail of the pancreas. Spleen: Spleen is normal in size and homogeneous in echotexture. Kidneys: Kidneys are normal in size and echotexture. Right kidney measures 9 cm long; left kidney measures 10.1 cm long. No hydronephrosis or nephrolithiasis. No solid masses. The inferior aspect of the right kidney is obscured by bowel gas. Aorta: Visualized aorta is normal in caliber at less than 3 cm. Iliacs: Not seen, obscured by overlying bowel gas. IVC: Intrahepatic inferior vena cava is patent. Miscellaneous: No free abdominal fluid. IMPRESSION: No acute pancreatic abnormality is seen. Pancreatic calcification can be seen, which is consistent with chronic pancreatitis. The gallbladder demonstrates a normal sonographic appearance. No biliary dilatation is seen. Inhomogeneous liver, without a focal liver lesion identified. Dictated by: Andrea Doll M.D. on 10/02/2018 at 16:18 Approved by: Andrea Doll M.D. on 10/02/2018 at 16:20
[2018-10-02 15:54] LABS: Add Manual Diff / Slide Review NO; Basophils Absolute Auto 100 /uL (0-100); Basophils Percent Auto 0.9 % (0-2); Eosinophils Absolute Auto 300 /uL (0-450); Eosinophils Percent Auto 3.5 % (2-4); Hematocrit 42.8 % (36-46); Hemoglobin 14.6 g/dL (12.0-16.0); Lymphocytes Absolute Auto 1900 /uL (1100-4500); Lymphocytes Percent Auto 24.4 % (25-40); Mean Corpuscular HGB Conc 34.2 % (30-36); Mean Corpuscular Hemoglobin 31.7 PG (26-34); Mean Corpuscular Volume 92.8 fL (80-100); Monocytes Absolute Auto 600 /uL (0-900); Monocytes Percent Auto 7.5 % (3-14); Neutrophils Absolute Auto 5000 /uL (1500-7000); Neutrophils Percent Auto 63.7 % (50-75); Platelet Count 313 X10^3/uL (150-400); Red Blood Cell Count 4.62 X10^6/uL (4.0-5.2); White Blood Cell Count 7.8 X10^3/uL (4.5-11.0)
[2018-10-02 16:03] LABS: INR 0.9 (0.9-1.3); Prothrombin Time 10.2 SECONDS (10.1-12.7)
[2018-10-02] MEDS: KETOROLAC 60 MG/2 ML VIAL 30 MG IV (16:04)
[2018-10-02] MEDS: PANTOPRAZOLE 40 MG VIAL IV (16:04)
[2018-10-02 16:05] LABS: PTT Partial Thromboplastin Tim 26 SECONDS (26.4-36.2)
[2018-10-02] MEDS: SODIUM CHLORIDE 0.9% 1,000 ML 1000 ML IV (16:05)
[2018-10-02] MEDS: ONDANSETRON 4 MG/2 ML INJ IV (16:06)
[2018-10-02 16:07] LABS: Alanine Aminotransferase 39 IU/L (9-52); Albumin 4.3 g/dL (3.5-5.0); Albumin Globulin Ratio 1.3 (1.0-2.8); Alkaline Phosphatase 81 U/L (38-126); Aspartate Aminotransferase 35 IU/L (14-36); BUN Creatinine Ratio 23.8 (6-22); Bilirubin Total 0.6 mg/dL (0.2-1.3); Blood Urea Nitrogen 19 mg/dL (7-17); Calcium 8.7 mg/dL (8.4-10.2); Carbon Dioxide 29 mmol/L (22-32); Chloride 101 mmol/L (98-107); Estimated Glomerular Filt Rate > 60.0 mL/min (>60); Globulin 3.2 g/dL (1.7-4.1); Glucose 103 mg/dL (80-110); HEMOLYSIS < 15 (0-50); Lipase 200 U/L (23-300); Sodium 138 mmol/L (137-145); Total Protein 7.5 g/dL (6.3-8.2)
--- NOTE | 2018-10-02 16:23 | DI.CT.S_ITS ---
PROCEDURE: CT ABDOMEN PELVIS W CON INDICATIONS: epigastric pain/nausea TECHNIQUE: After the administration of intravenous contrast, 5 mm thick sections acquired from the diaphragm to the symphysis. 5 mm coronal and sagittal reformats were acquired. For radiation dose reduction, the following was used: automated exposure control, adjustment of mA and/or kV according to patient size. COMPARISON: [facility], , US ABDOMEN COMPLETE, 10/02/2018, 16:00. [facility], , ABDOMEN COMPLETE, 11/16/2015, 21:07. FINDINGS: Image quality: Excellent. ABDOMEN: Lung bases: There is minimal atelectasis or scarring in the lung bases. Heart size is normal. Solid organs: No focal hepatic lesions identified. The gallbladder is nondistended without calcified gallstones. Biliary system is non dilated. Pancreas enhances normally without peripancreatic fat stranding or fluid collections. Spleen is normal in size and enhancement. No adrenal nodules. Kidneys demonstrate no hydronephrosis. There is multifocal renal cortical thinning bilaterally likely representing sequela of prior infection, versus trauma or infarcts. Peritoneum and bowel: There is gastric wall thickening with mucosal enhancement suggestive of a nonspecific gastritis. There is also wall thickening of the proximal small bowel involving the duodenum and jejunum. Bowel loops are normal in caliber. The colon demonstrates mild segmental wall thickening within the descending and sigmoid colon. No free fluid or air. Nodes and vessels: No retroperitoneal or mesenteric adenopathy by size criteria. Aorta and inferior vena cava are normal in size. Miscellaneous: No ventral hernias. PELVIS: Genitourinary: Bladder wall thickness is normal. Miscellaneous: No inguinal hernias or adenopathy. Bones: No suspicious bony lesions. No vertebral body compression fractures. IMPRESSION: 1. Wall thickening of the stomach, proximal small bowel, and distal colon suggestive of a gastroenteritis. 2. Bilateral multifocal areas of renal cortical thinning likely represent sequelae of prior infection. The differential includes prior small infarcts or trauma. Dictated by: Jonathan Russo M.D. on 10/02/2018 at 17:41 Approved by: Jonathan Russo M.D. on 10/02/2018 at 17:46
--- NOTE | 2018-10-23 16:49 | PC.NURSE ---
Late Entry: Gasper Herzog RN, pt received 1000mL NS completed 10/02/2018 at 1715.
== END 2018-10-02 19:03 | disposition home or self-care (01) ==
PROVIDERS: Emergency Provider Internal Medicine
DX: K86.1 Other chronic pancreatitis (principal); R53.1 Weakness; R42 Dizziness and giddiness
CPT/HCPCS: 36591; 74177; 76700; 80053; 81003; 83690; 85025; 85610; 85730; 96361; 96374; 96375; 99282; 99284; C9113; J1885; J2405; Q9967

== ENCOUNTER 2019-01-14 09:31 | Emergency (ER) | payer MEDICARE, SELFPAY ==
[2019-01-14 09:38] VITALS: BP 167/121; PULSE 91; RESP 18; TEMP 36.6; O2SAT 100; BMI 20.1
--- NOTE | 2019-01-14 09:40 | DI.RAD.S_ITS ---
PROCEDURE: XR RIBS LT MIN 3V W CXR1V INDICATIONS: pain injury TECHNIQUE: 2 views of the left ribs were acquired, along with a single view chest. COMPARISON: [facility], , XR CXR 2 VIEW, 12/07/2004, 14:12. FINDINGS: Surgical changes and devices: None. Bones and chest wall: No acute displaced rib fractures identified. There multiple old left rib fractures. No suspicious bony lesions and old left clavicular shaft fracture. Overlying soft tissues appear unremarkable. Lungs and pleura: No pleural effusions or pneumothorax. Lungs appear clear. Mediastinum: Mediastinal contours appear normal. Heart size is normal. IMPRESSION: 1. No acute displaced rib fractures. 2. Multiple old left rib fractures and left clavicular shaft fracture. Dictated by: Jeff Weathers M.D. on 01/14/2019 at 10:45 Approved by: Jeff Weathers M.D. on 01/14/2019 at 11:00
--- NOTE | 2019-01-14 09:41 | DI.RAD.S_ITS ---
PROCEDURE: XR KNEE RT 3V INDICATIONS: injury pain TECHNIQUE: 3 views of the knee were acquired. COMPARISON: None. FINDINGS: Bones: No fractures or dislocations. No suspicious bony lesions. Soft tissues: No joint effusion. No suspicious soft tissue calcifications. IMPRESSION: No fracture or dislocation. Dictated by: Jeff Weathers M.D. on 01/14/2019 at 10:43 Approved by: Jeff Weathers M.D. on 01/14/2019 at 10:45
[2019-01-14 09:51] VITALS: BP 145/103; PULSE 90
--- NOTE | 2019-01-14 10:29 | ED.LOWEXIN ---
HPI - Extremity Injury (Lower) General Chief Complaint: Extremity Injury, Lower Stated Complaint: fell, right knee pain Time Seen by Provider: 01/14/19 10:29 Source: patient Mode of arrival: ambulatory Limitations: no limitations History of Present Illness HPI Narrative: This is a 73-year-old female who comes in with complaint of right knee pain and left-sided chest pain. Patient states last night she was going down her steps there were only 3 but was in the dark she thought that she could navigate him safely and instead lost her balance and fell onto her right knee and left chest. Patient states that she did not hit her head she denies any neck or back pain. She complains of pain on the left side of her chest particularly with movement and rotation. Patient has not appreciated any shortness of breath. Although it does hurt to take a deep inspiration. No nausea or vomiting. She denies any weakness or numbness in her extremities. She can bend her right knee without issue but weight-bearing is quite uncomfortable. She complains of pain in the knee and just below. She also notes a little bit of bruising on each side. Patient denies any current medical issues. Recent surgeries. She denies any blood thinners including aspirin, Plavix, Coumadin or other anticoagulants. She denies any allergies to medications. Related Data Previous Rx's Medication Instructions Recorded hydrocodone-acetaminophen [Tem[place]] 1 tab PO Q6H PRN #10 tab 01/14/19 Allergies Allergy/AdvReac Type Severity Reaction Status Date / Time No Known Drug Allergies Allergy Verified 01/14/19 09:38 Review of Systems Review of Systems ROS Unobtainable: All systems reviewed & are unremarkable except as noted in HPI and below Constitutional Denies chills, Denies fever(s), Denies lethargy, Denies weakness and Denies other (LOC) Eyes Denies change in vision ENT Ears, Nose, Mouth, and Throat: Denies neck pain Cardiovascular Reports chest pain (with movement), Denies syncope, Denies irregular heart rhythm, Denies lightheadedness, Denies radiating jaw, neck or arm pain, Denies palpitations, Denies dyspnea, Denies dyspnea on exertion and Denies orthopnea Respiratory Reports pain on inspiration, Denies dyspnea and Denies dyspnea on exertion Gastrointestinal Gastrointestinal: Denies abdominal pain, Denies change in bowel habits, Denies diarrhea, Denies nausea and Denies vomiting Genitourinary Denies hematuria, Denies dysuria, Denies flank pain, Denies urinary incontinence and Denies urinary urgency Musculoskeletal Denies back pain, Reports arthralgias (right knee), Denies joint swelling, Denies limited range of motion, Denies muscle weakness, Denies neck pain, Denies numbness, Denies tingling and Reports other (pain with weightbearing) Integumentary/Breasts Reports unusual bruising (right knee) Neurologic Denies syncope, Denies numbness, Denies tingling and Denies weakness Endocrine Denies palpitations PFS Medical History Pancreatitis (Resolved) Depression with anxiety (Chronic) Anxiety and depression (Chronic) Hepatitis B (Chronic) Suicide attempt (Resolved) Suicide attempt (Resolved) Surgical History H/O: hysterectomy (Resolved) Social History Smoking Status: Current every day smoker Tobacco: How many years used: 15 alcohol intake: current substance use type: does not use Social History Smoking Status: Current every day smoker Tobacco: How many years used: 15 alcohol intake: current substance use type: does not use Exam Narrative Exam Narrative: GEN: Patient appears in mild distress. HEAD: No evidence of trauma, no raccoon/Erickson sign. NECK: Nontender, painless range of motion, trachea midline Negative Nexus criteria, there is no line tenderness, distracting injury, altered mental status, neuro deficit, recent EtOH. EYES: PERRLA, EOMI ENT: External inspection normal, trachea is midline, TM's are normal no hemotypanum, Nares are clear, no septal hematoma, no dental or oral injury, airway is normal and with normal occlusion, No bony tenderness RESP: Chest is nontender and has symmetric movement, no ecchymosis, breath sounds are normal no crackles, wheezes or rales CVS: Heart sounds are normal, no murmur noted, No JVD. ABG/GI: Nontender, soft, normal bowel sounds, no distention, no organomegaly, pelvic rock is negative NEURO: Oriented AOx3, neuro is grossly intact, sensation and motor is normal all 4 extremities moving, cranial nerves II through XII are intact, GCS is 15 PSYCH: Normal mood and affect SKIN: Intact, warm and dry, no crepitus and without decubitus. Patient has mild ecchymosis that is about a cm on the lateral side of the knee just adjacent to the fibula, on the medial portion of the patella and tibial area there is about a 3 cm circular area of ecchymosis no abrasion or laceration. BACK: No CVA tenderness, no vertebral tenderness, no step-off's, no crepitus EXT: Patient's right knee patient has full range of motion actively and passively, she has moderate tenderness over the tibial plateau laterally and very mildly over the patella. No fibular tenderness. No other tenderness throughout the right lower extremity. She has 2+ pulse. Normal sensation throughout. Hips are nontender, no pedal edema, normal color and temperature, normal range of motion of extremities with normal tendon exam, 2+ pulses in all four extremities Initial Vital Signs Initial Vital Signs: Vital Signs Temperature 97.8 F 01/14/19 09:38 Pulse Rate 91 H 01/14/19 09:38 Respiratory Rate 18 01/14/19 09:38 Blood Pressure 167/121 H 01/14/19 09:38 Pulse Oximetry 100 01/14/19 09:38 Scores GCS [place] coma scale eye opening: Spontaneous Fausto coma scale verbal response: Orientated Fausto coma scale motor response: Obey commands Fausto coma scale total score: 15 Course Orders Ordered: Discontinued Medications Hydrocodone Bitart/Acetaminophen ([place] 5/325) 1 tab PO NOW ONE Stop: 01/14/19 10:38 Last Admin: 01/14/19 10:47 Dose: 1 tab Vital Signs - 8 hr 01/14/19 09:38 01/14/19 09:51 Temperature 97.8 F Pulse Rate 91 H 90 Respiratory Rate 18 Blood Pressure 167/121 H Blood Pressure [Left Arm] 145/103 H Pulse Oximetry 100 MDM - Extremity Injury (Lower) Imaging Data Right knee x-ray: Radiologist's impression: [address] [address] XRay Report Signed Patient: Janett Downs LMR#: [id number] : 8Acct:[id number] Age/Sex: 73 / FDate of Service: 01/14/19 Loc: ED Accession Number: [id number] Procedure: XR knee RT 3V Ordering Provider: Guadalupe Kwok D.O. PROCEDURE: XR KNEE RT 3V INDICATIONS: injury pain TECHNIQUE: 3 views of the knee were acquired. COMPARISON: None. FINDINGS: Bones: No fractures or dislocations. No suspicious bony lesions. Soft tissues: No joint effusion. No suspicious soft tissue calcifications. IMPRESSION: No fracture or dislocation. Dictated by: Jeff Weathers M.D. on 01/14/2019 at 10:43 Approved by: Jeff Weathers M.D. on 01/14/2019 at 10:45 Rib x-ray : Radiologist's impression: [place] [address] XRay Report Signed Patient: Janett Downs LMR#: [id number] : 8Acct:[id number] Age/Sex: 73 / FDate of Service: 01/14/19 Loc: ED Accession Number: [id number] Procedure: XR ribs LT min 3V w CXR1V Ordering Provider: Guadalupe Kwok D.O. PROCEDURE: XR RIBS LT MIN 3V W CXR1V INDICATIONS: pain injury TECHNIQUE: 2 views of the left ribs were acquired, along with a single view chest. COMPARISON: [facility], , XR CXR 2 VIEW, 12/07/2004, 14:12. FINDINGS: Surgical changes and devices: None. Bones and chest wall: No acute displaced rib fractures identified. There multiple old left rib fractures. No suspicious bony lesions and old left clavicular shaft fracture. Overlying soft tissues appear unremarkable. Lungs and pleura: No pleural effusions or pneumothorax. Lungs appear clear. Mediastinum: Mediastinal contours appear normal. Heart size is normal. IMPRESSION: 1. No acute displaced rib fractures. 2. Multiple old left rib fractures and left clavicular shaft fracture. Dictated by: Jeff Weathers M.D. on 01/14/2019 at 10:45 Approved by: Jeff Weathers M.D. on 01/14/2019 at 11:00 [facility] Narrative Medical decision making narrative: Knee x-rays negative, chest x-ray shows old rib fractures but no obvious clear rib fractures today. I suspect patient may clinically have a rib fracture. She appears quite uncomfortable with movement. She does not have any hypoxia, she is not splinting she is taking good breaths. Plan for Matthias bandage, crutches or walker as needed as well as oral medication for pain control and follow-up. Patient defers any crutches or walker, states she will be more likely to fall. Discharge Plan Departure Patient Disposition: Home Clinical Impression: Sprain of right knee, Traumatic ecchymosis of knee, Closed rib fracture Discharge Date/Time: 01/14/19 11:27 Interventions: ED Discharge Assessment Last Done: 01/14/19 11:24 Instructions: DI for Knee Sprain, DI for Rib Contusion Activity Restrictions/Additional Instructions: Follow-up with your primary care physician in the next 3-5 days for recheck. Also for any other medications for pain control. You may take ibuprofen up to 800 mg every 8 hours as needed for pain. You may take this medication with prescribed pain medication, this medication can make you sleepy do not drive, perform hazardous activities or make any major decisions while taking it. Return to the emergency department for altered mental status, new confusion, sudden severe headaches, new vision changes, new neck pain, new weakness or numbness, persistent vomiting, loss of bowel or bladder control or other new or concerning symptoms. Splint Care: Keep splint clean and dry. Elevated affected body part to decrease swelling. OK to use ice pack on the affected body part. Use for 15-20 minutes each time, for 5-6x per day. If you develop worsening pain, numbness, tingling, discoloration of the affected body part, loosen the MATTHIAS wrap, and either see your doctor for an urgent re-assessment, or return to the Emergency Department. Return to the Emergency Department for any new or worsening symptoms. Prescriptions: New hydrocodone-acetaminophen [Temple] 5-325 mg tablet 1 tab PO Q6H PRN (Reason: pain) Qty: 10 RF: 0
--- NOTE | 2019-01-14 10:46 | ED_ITS ---
HPI - Extremity Injury (Lower) General Chief Complaint: Extremity Injury, Lower Stated Complaint: fell, right knee pain Time Seen by Provider: 01/14/19 10:29 Source: patient Mode of arrival: ambulatory Limitations: no limitations History of Present Illness HPI Narrative: This is a 73-year-old female who comes in with complaint of right knee pain and left-sided chest pain. Patient states last night she was going d own her steps there were only 3 but was in the dark she thought that she could navigate him safely and instead lost her balance and fell onto her right knee and left chest. Patient states that she did not hit her head she denies any neck or back pain. She complains of pain on the left side of her chest particularly with movement and rotation. Patient has not appreciated any shortness of breath. Although it does hurt to take a deep inspiration. No nausea or vomiting. She denies any weakness or numbness in her extremities. She can bend her right knee without issue but weight-bearing is quite uncomfortable. She complains of pain in the knee and just below. She also notes a little bit of bruising on each side. Patient denies any current medical issues. Recent surgeries. She denies any blood thinners including aspirin, Plavix, Coumadin or other anticoagulants. She denies any allergies to medications. Related Data Previous Rx's Medication Instructions Recorded hydrocodone-acetaminophen [[place]] 1 tab PO Q6H PRN #10 tab 01/14/19 Allergies Allergy/AdvReac Type Severity Reaction Status Date / Time No Known Drug Allergies Allergy Verified 01/14/19 09:38 Review of Systems Review of Systems ROS Unobtainable: All systems reviewed & are unremarkable except as noted in HPI and below Constitutional Denies chills, Denies fever(s), Denies lethargy, Denies weakness and Denies other (LOC) Eyes Denies change in vision ENT Ears, Nose, Mouth, and Throat: Denies neck pain Cardiovascular Reports chest pain (with movement), Denies syncope, Denies irregular heart rhythm, Denies lightheadedness, Denies radiating jaw, neck or arm pain, Denies palpitations, Denies dyspnea, Denies dyspnea on exertion and Denies orthopnea Respiratory Reports pain on inspiration, Denies dyspnea and Denies dyspnea on exertion Gastrointestinal Gastrointestinal: Denies abdominal pain, Denies change in bowel habits, Denies diarrhea, Denies nausea and Denies vomiting Genitourinary Denies hematuria, Denies dysuria, Denies flank pain, Denies urinary incontinence and Denies urinary urgency Musculoskeletal Denies back pain, Reports arthralgias (right knee), Denies joint swelling, Denies limited range of motion, Denies muscle weakness, Denies neck pain, Denies numbness, Denies tingling and Reports other (pain with weightbearing) Integumentary/Breasts Reports unusual bruising (right knee) Neurologic Denies syncope, Denies numbness, Denies tingling and Denies weakness Endocrine Denies palpitations PFSH Medical History Pancreatitis (Resolved) Depression with anxiety (Chronic) Anxiety and depression (Chronic) Hepatitis B (Chronic) Suicide attempt (Resolved) Suicide attempt (Resolved) Surgical History H/O: hysterectomy (Resolved) Social History Smoking Status: Current every day smoker Tobacco: How many years used: 15 alcohol intake: current substance use type: does not use Social History Smoking Status: Current every day smoker Tobacco: How many years used: 15 alcohol intake: current substance use type: does not use Exam Narrative Exam Narrative: GEN: Patient appears in mild distress. HEAD: No evidence of trauma, no raccoon/Erickson sign. NECK: Nontender, painless range of motion, trachea midline Negative Nexus criteria, there is no line tenderness, distracting injury, altered mental status, neuro deficit, recent EtOH. EYES: PERRLA, EOMI ENT: External inspection normal, trachea is midline, TM's are normal no hemotypanum, Nares are clear, no septal hematoma, no dental or oral injury, airway is normal and with normal occlusion, No bony tenderness RESP: Chest is nontender and has symmetric movement, no ecchymosis, breath sounds are normal no crackles, wheezes or rales CVS: Heart sounds are normal, no murmur noted, No JVD. ABG/GI: Nontender, soft, normal bowel sounds, no distention, no organomegaly, pelvic rock is negative NEURO: Oriented AOx3, neuro is grossly intact, sensation and motor is normal all 4 extremities moving, cranial nerves II through XII are intact, GCS is 15 PSYCH: Normal mood and affect SKIN: Intact, warm and dry, no crepitus and without decubitus. Patient has mild ecchymosis that is about a cm on the lateral side of the knee just adjacent to the fibula, on the medial portion of the patella and tibial area there is about a 3 cm circular area of ecchymosis no abrasion or laceration. BACK: No CVA tenderness, no vertebral tenderness, no step-off's, no crepitus EXT: Patient's right knee patient has full range of motion actively and passively, she has moderate tenderness over the tibial plateau laterally and very mildly over the patella. No fibular tenderness. No other tenderness throughout the right lower extremity. She has 2+ pulse. Normal sensation throughout. Hips are nontender, no pedal edema, normal color and temperature, normal range of motion of extremities with normal tendon exam, 2+ pulses in all four extremities Initial Vital Signs Initial Vital Signs: Vital Signs Temperature 97.8 F 01/14/19 09:38 Pulse Rate 91 H 01/14/19 09:38 Respiratory Rate 18 01/14/19 09:38 Blood Pressure 167/121 H 01/14/19 09:38 Pulse Oximetry 100 01/14/19 09:38 Scores GCS Fausto coma scale eye opening: Spontaneous [place] coma scale verbal response: Orientated [place] coma scale motor response: Obey commands Fausto coma scale total score: 15 Course Orders Ordered: Discontinued Medications Hydrocodone Bitart/Acetaminophen ([place] 5/325) 1 tab PO NOW ONE Stop: 01/14/19 10:38 Last Admin: 01/14/19 10:47 Dose: 1 tab Vital Signs - 8 hr 01/14/19 09:38 01/14/19 09:51 Temperature 97.8 F Pulse Rate 91 H 90 Respiratory Rate 18 Blood Pressure 167/121 H Blood Pressure [Left Arm] 145/103 H Pulse Oximetry 100 MDM - Extremity Injury (Lower) Imaging Data Right knee x-ray: Radiologist's impression: [address] [address] XRay Report Signed Patient: Janett Downs LMR#: [id number] : 1945cct:[id number] Age/Sex: 73 / FDate of Service: 01/14/19 Loc: ED Accession Number: [id number] Procedure: XR knee RT 3V Ordering Provider: Guadalupe Kwok D.O. PROCEDURE: XR KNEE RT 3V INDICATIONS: injury pain TECHNIQUE: 3 views of the knee were acquired. COMPARISON: None. FINDINGS: Bones: No fractures or dislocations. No suspicious bony lesions. Soft tissues: No joint effusion. No suspicious soft tissue calcifications. IMPRESSION: No fracture or dislocation. Dictated by: Jeff Weathers M.D. on 01/14/2019 at 10:43 Approved by: Jeff Weathers M.D. on 01/14/2019 at 10:45 Rib x-ray : Radiologist's impression: [place] [address] XRay Report Signed Patient: Janett Downs LMR#: [id number] : 8Acct:[id number] Age/Sex: 73 / FDate of Service: 01/14/19 Loc: ED Accession Number: [id number] Procedure: XR ribs LT min 3V w CXR1V Ordering Provider: Guadalupe Kwok D.O. PROCEDURE: XR RIBS LT MIN 3V W CXR1V INDICATIONS: pain injury TECHNIQUE: 2 views of the left ribs were acquired, along with a single view chest. COMPARISON: [facility], , XR CXR 2 VIEW, 12/07/2004, 14:12. FINDINGS: Surgical changes and devices: None. Bones and chest wall: No acute displaced rib fractures identified. There multiple old left rib fractures. No suspicious bony lesions and old left clavicular shaft fracture. Overlying soft tissues appear unremarkable. Lungs and pleura: No pleural effusions or pneumothorax. Lungs appear clear. Mediastinum: Mediastinal contours appear normal. Heart size is normal. IMPRESSION: 1. No acute displaced rib fractures. 2. Multiple old left rib fractures and left clavicular shaft fracture. Dictated by: Jeff Weathers M.D. on 01/14/2019 at 10:45 Approved by: Jeff Weathers M.D. on 01/14/2019 at 11:00 [facility] Narrative Medical decision making narrative: Knee x-rays negative, chest x-ray shows old rib fractures but no obvious clear rib fractures today. I suspect patient may clinically have a rib fracture. She appears quite uncomfortable with movement. She does not have any hypoxia, she is not splinting she is taking good breaths. Plan for Matthias bandage, crutches or walker as needed as well as oral medication for pain control and follow-up. Patient defers any crutches or walker, states she will be more likely to fall. Discharge Plan Departure Patient Disposition: Home Clinical Impression: Sprain of right knee, Traumatic ecchymosis of knee, Closed rib fracture Discharge Date/Time: 01/14/19 11:27 Interventions: ED Discharge Assessment Last Done: 01/14/19 11:24 Instructions: DI for Knee Sprain, DI for Rib Contusion Activity Restrictions/Additional Instructions: Follow-up with your primary care physician in the next 3-5 days for recheck. Also for any other medications for pain control. You may take ibuprofen up to 800 mg every 8 hours as needed for pain. You may take this medication with prescribed pain medication, this medication can make you sleepy do not drive, perform hazardous activities or make any major decisions while taking it. Return to the emergency department for altered mental status, new confusion, sudden severe headaches, new vision changes, new neck pain, new weakness or numbness, persistent vomiting, loss of bowel or bladder control or other new or concerning symptoms. Splint Care: Keep splint clean and dry. Elevated affected body part to decrease swelling. OK to use ice pack on the affected body part. Use for 15-20 minutes each time, for 5-6x per day. If you develop worsening pain, numbness, tingling, discoloration of the affected body part, loosen the MATTHIAS wrap, and either see your doctor for an urgent re-assessment, or return to the Emergency Department. Return to the Emergency Department for any new or worsening symptoms. Prescriptions: New hydrocodone-acetaminophen [[place]] 5-325 mg tablet 1 tab PO Q6H PRN (Reason: pain) Qty: 10 RF: 0
[2019-01-14] MEDS: HYDROCODONE/ACET 5/325 TABLET 1 TAB PO (10:47)
--- NOTE | 2019-01-14 11:13 | PC.NURSE ---
pt c/o severe knee pain, and left rib pain. pain started after falling down a couple stairs today. denies head injury and LOC. pt ambulated to room, limping on leg. difficulty taking a deep breath due to pain, breathing without difficutly.
[2019-01-14 11:15] VITALS: BP 139/105; PULSE 90; RESP 18; O2SAT 98
== END 2019-01-14 11:27 | disposition home or self-care (01) ==
PROVIDERS: Emergency Provider Emergency Medicine
DX: S83.91XA Sprain of unspecified site of right knee, initial encounter (principal); S22.39XA Fracture of one rib, unspecified side, initial encounter for closed fracture; S80.01XA Contusion of right knee, initial encounter; S80.02XA Contusion of left knee, initial encounter; W10.8XXA Fall (on) (from) other stairs and steps, initial encounter
CPT/HCPCS: 71101; 73562; 99282; 99283

== ENCOUNTER 2019-01-22 10:50 | Emergency (ER) | payer MEDICARE, SELFPAY ==
[2019-01-22 11:03] VITALS: BP 148/98; PULSE 103; RESP 19; TEMP 36.8; O2SAT 96
[2019-01-22] MEDS: LIDOCAINE PATCH 1 EACH ADH..PATCH TOP (11:57)
[2019-01-22] MEDS: HYDROCODONE/ACET 5/325 TABLET 1 TAB PO (11:57)
--- NOTE | 2019-01-22 12:00 | ED.CHESTPAIN ---
HPI - Chest Pain <AJIT Mendez-BC - Last Filed: 01/22/19 14:14> General Chief Complaint: Chest Pain Stated Complaint: cracked/broken ribs hurt, was here last week Time Seen by Provider: 01/22/19 11:41 Source: patient Mode of arrival: ambulatory Limitations: no limitations History of Present Illness HPI narrative: The patient is a 73-year-old female current everyday smoker with history of depression who presents for chief complaint of ?I can not fill my prescriptions.She was seen at this facility on January 14 after ground level fall and states that she is unable to fill her prescriptions. She was noted to have likely rib fractures. She states she never filled her prescription. The patient is very stressed because she is almost ?living on the streets and that she is using lots of money to use hotel rooms. She states that she does not want to leave town. She states that her pain has been consistent since her fall. She denies any shortness of breath. She states that the pain is mostly on the left side of her ribs. She is speaking full sentences. She denies any thoughts of hurting herself or anybody else. She states that her primary recent today for her emergency department visit is the fact that she cannot afford her medications. Related Data Previous Rx's Medication Instructions Recorded hydrocodone-acetaminophen [[place]] 1 tab PO Q6H PRN #10 tab 01/14/19 Allergies Allergy/AdvReac Type Severity Reaction Status Date / Time No Known Drug Allergies Allergy Verified 01/14/19 09:38 Review of Systems <AJIT Mendez- - Last Filed: 01/22/19 14:14> Review of Systems GENERAL: Denies chills, fatigue, malaise, fever, sweats. HEENT: Denies sinus pain, ear pain, sore throat, difficulty swallowing, dizziness. RESPIRATORY: Denies dyspnea, cough, wheezing, hemoptysis, sputum. CARDIOVASCULAR: Denies chest pain, palpitations, orthopnea, edema, GASTROINTESTINAL: Denies nausea, vomiting, abdominal pain, diarrhea, constipation, melena. : Denies dysuria, frequency, incontinence, hematuria, urinary retention. MUSCULOSKELETAL: See HPI SKIN: Denies rash, skin lesions, or other NEUROLOGIC: Denies weakness, headache, numbness, change in speech, confusion, seizures, incoordination. PSYCHIATRIC: See HPI 12 point review of systems is negative except for those stated above PFSH <JAQUELIN Mendez - Last Filed: 01/22/19 14:14> Social History Smoking Status: Current every day smoker Tobacco: How many years used: 15 alcohol intake: current substance use type: does not use Exam <JAQUELIN Mendez - Last Filed: 01/22/19 14:14> Narrative Exam Narrative: GENERAL: Thin elderly female lying on stretcher, crying and appears anxious. HEAD: Atraumatic. Normocephalic. No temporal or scalp tenderness. EYES: Pupils equal round and reactive. Extraocular motions intact. No scleral icterus. No injection or drainage. ENT: Nose without bleeding, purulent drainage or septal hematoma. Throat without erythema, tonsillar hypertrophy or exudate. Uvula midline. Airway patent. NECK: Trachea midline. No JVD or lymphadenopathy. Supple, nontender, no meningeal signs. CARDIOVASCULAR: Regular rate and rhythm RESPIRATORY: Coarse bilaterally to auscultation. Breath sounds equal bilaterally. No wheezes, rales, or rhonchi. No stridor. No increased respiratory effort. No retractions. Pain to palpation of left-sided chest wall. Pain to anterior posterior chest wall compression as well as lateral chest wall compression. GASTROINTESTINAL: Abdomen soft, non-tender, nondistended. No hepato-splenomegaly, or palpable masses. No guarding. EXTREMITIES: No clubbing, cyanosis, or edema. No joint tenderness, effusion, or edema noted. BACK: Nontender without deformity or crepitance. No flank tenderness. NEURO: AOx3. Histrionic. Crying. SKIN: No rash or erythema. Initial Vital Signs Initial Vital Signs: Vital Signs Temperature 98.2 F 01/22/19 11:03 Pulse Rate 103 H 01/22/19 11:03 Respiratory Rate 01/22/19 11:03 Blood Pressure 148/98 H 01/22/19 11:03 Pulse Oximetry 96 01/22/19 11:03 <Anuradha Rollins MD - Last Filed: 01/22/19 19:54> Initial Vital Signs Initial Vital Signs: Vital Signs Temperature 98.2 F 01/22/19 11:03 Pulse Rate 103 H 01/22/19 11:03 Respiratory Rate 19 01/22/19 11:03 Blood Pressure 148/98 H 01/22/19 11:03 Pulse Oximetry 96 01/22/19 11:03 Scores <JAQUELIN Mendez - Last Filed: 01/22/19 14:14> GCS [place] coma scale eye opening: Spontaneous [place] coma scale verbal response: Orientated Fausto coma scale motor response: Obey commands [place] coma scale total score: 15 Course <JAQUELIN Mendez - Last Filed: 01/22/19 14:14> Orders Ordered: ED Orders 01/22/19 12:04 Consult to Mold Inspector Stat Discontinued Medications Hydrocodone Bitart/Acetaminophen ([place] 5/325) 1 tab PO NOW ONE Stop: 01/22/19 11:51 Last Admin: 01/22/19 11:57 Dose: 1 tab Lidocaine (Lidoderm) 1 each TOP NOW ONE Stop: 01/22/19 11:51 Last Admin: 01/22/19 11:57 Dose: 1 each Vital Signs - 8 hr 01/22/19 13:28 Pulse Rate 88 Respiratory Rate 22 Blood Pressure 152/117 H Pulse Oximetry 96 <Anuradha Rollins MD - Last Filed: 01/22/19 19:54> Orders Ordered: ED Orders 01/22/19 12:04 Consult to Mold Inspector Stat Discontinued Medications Hydrocodone Bitart/Acetaminophen ([place] 5/325) 1 tab PO NOW ONE Stop: 01/22/19 11:51 Last Admin: 01/22/19 11:57 Dose: 1 tab Lidocaine (Lidoderm) 1 each TOP NOW ONE Stop: 01/22/19 11:51 Last Admin: 01/22/19 11:57 Dose: 1 each Vital Signs - 8 hr 01/22/19 13:28 Pulse Rate 88 Respiratory Rate 22 Blood Pressure 152/117 H Pulse Oximetry 96 MDM - Chest Pain <JAQUELIN Mendez - Last Filed: 01/22/19 14:14> MDM Narrative Medical decision making narrative: Patient is a 73-year-old female who presents for not being able to afford her medications for her rib fracture from last week. She declines any further x-rays. She is provided pain control in the emergency department. She was given a social work consult, and a nursing home social worker went over many options with her. The patient was teary throughout her interview, stating that she did not want to wait for the nursing home social worker to contact the [facility] or other facilities to help provide lodging. The patient was given contact information for the [facility] human resources file clerk, but stated she did not want to follow through with getting a primary care provider. Social Work encouraged her to fill out Medicare applications, and offered to walk her over to the [facility] for rehabilitation resource center the patient adamantly refused. She is not hypoxic and is in no respiratory distress in the emergency department. Thus she is stable to be discharged. I encouraged her to follow up with a PCP, and encouraged her to follow through with the social work resources. Discharge Plan Departure Patient Disposition: Home Clinical Impression: Closed rib fracture Qualifiers: Encounter type: initial encounter Rib fracture type: single rib Laterality: left Qualified Code(s): S22.32XA - Fracture of one rib, left side, initial encounter for closed fracture Discharge Date/Time: 01/22/19 13:29 Interventions: ED Discharge Assessment Last Done: 01/22/19 13:28 Instructions: How to Use an Incentive Spirometer, DI for Rib Fracture, DI for Rib Contusion Activity Restrictions/Additional Instructions: Your vitals are stable today. We have given you several resources and you had spoken with the nursing home social worker. I suggest following up with [facility] human resources file clerk, as well as going through the resources and applications that our nursing home social worker discussed with you. Please continue to use anti-inflammatories, ice and your previous pain medication prescription if able. I highly suggest establishing a primary care provider. Prescriptions: No Action hydrocodone-acetaminophen [[place]] 5-325 mg tablet 1 tab PO Q6H PRN (Reason: pain) Qty: 10 RF: 0 Referrals: [facility] [Outside]
[2019-01-22 13:28] VITALS: BP 152/117; PULSE 88; RESP 22; O2SAT 96
--- NOTE | 2019-01-22 15:14 | CM.SWNOTE ---
Resources and assessment Patient is a 73 year old female who was admitted to [facility] ED on 01/22/19 for Rib Pain. Pt has MCR for insurance and she does not have PCP. EMR was reviewed. Per MD, pt was here 5 days ago for rib pain stating she fell and maybe broke her rib and was given Rx for pain medication but pt stated she did not fill it as she could not afford it. SW met bedside with pt in ED room 7 and pt confirms that she lives in [place] and was living with her ex-boyfriend for a long time as they found a way to still be friends and live as roommates. Pt states that he finally told her to move out and paid for her to stay in a hotel room for a few days but as of today is no longer paying. Pt states she works some but with the cost of medical insurance through Medicare of $300 a months she cannot afford to pay for an apartment or medication. Pt states she has never applied for Medicaid but would be willing to now although quite agitated with how insurance and the government make things totally unaffordable. SW tried to encourage the pt to go to the [facility] Resource Center for assist in applying for Medicaid and Medicare help program and gave pt the information on Resource Center. Pt states she has some friends in town that she could stay with but does not want to inconvenience them and SW provided pt with the Residential and housing authority and pt aware of how long it can take to get into housing but was willing for SW to call the [facility] and SW had to leave a ms but provided the resource list to the pt. Pt also agitated about establishing with a PCP although list was given. Pt requesting to leave as she needs to pick her personal belongings up from the hotel and talk to friends about options and declines any further support at this time. aware and writing discharge for the pt. JABIER Toth
== END 2019-01-22 13:29 | disposition home or self-care (01) ==
PROVIDERS: Emergency Provider Nurse Practitioner Family
DX: S22.32XA Fracture of one rib, left side, initial encounter for closed fracture (principal)
CPT/HCPCS: 99282

== ENCOUNTER 2019-02-17 12:51 | Emergency (ER) | payer MEDICARE, SELFPAY ==
[2019-02-17 12:55] VITALS: BP 120/78; PULSE 93; RESP 18; TEMP 36.4; O2SAT 99
--- NOTE | 2019-02-17 13:20 | DI.US.S_ITS ---
PROCEDURE: US ABDOMEN LIMITED INDICATIONS: RIGHT UPPER QUADRANT PAIN TECHNIQUE: Real-time focused scanning was performed of the abdomen, with image documentation. COMPARISON: M[facility]ed [facility], CT, CT ABDOMEN PELVIS W CON, 10/02/2018, 16:40. FINDINGS: The liver is normal in size and is noted to demonstrate a symmetric echogenicity when compared to the right kidney. No definite liver lesions are appreciated. The gallbladder is somewhat contracted and demonstrates moderate wall thickening, measuring up to 5 mm in thickness. This is more pronounced near the fundus. The patient did not exhibit a positive sonographic Fuentes sign. No cholelithiasis is appreciated. No pericholecystic fluid is evident. There is no intrahepatic or extrahepatic biliary dilatation. The common bile duct measures 6 mm in diameter. The pancreas was largely obscured by overlying bowel gas. No obvious pancreatic abnormalities are evident on the provided images. Please note that the right kidney, abdominal aorta, and inferior vena cava were not completely imaged. IMPRESSION: 1. No cholelithiasis. 2. Prominent gallbladder wall thickening is similar to the prior CT, which is of uncertain etiology or clinical significance. The possibility of acalculous or chronic cholecystitis is difficult to exclude. Dictated by: Barry Kearney M.D. on 02/17/2019 at 13:57 Approved by: Barry Kearney M.D. on 02/17/2019 at 13:59
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
[2019-02-17 13:36] LABS: Add Manual Diff / Slide Review NO; Basophils Absolute Auto 100 /uL (0-100); Basophils Percent Auto 1.1 % (0-2); Eosinophils Absolute Auto 300 /uL (0-450); Eosinophils Percent Auto 5.1 % (2-4); Hematocrit 36.5 % (36-46); Hemoglobin 12.2 g/dL (12.0-16.0); Lymphocytes Absolute Auto 1500 /uL (1100-4500); Lymphocytes Percent Auto 26.9 % (25-40); Mean Corpuscular HGB Conc 33.6 % (30-36); Mean Corpuscular Hemoglobin 32.1 PG (26-34); Mean Corpuscular Volume 95.6 fL (80-100); Monocytes Absolute Auto 600 /uL (0-900); Monocytes Percent Auto 10.7 % (3-14); Neutrophils Absolute Auto 3100 /uL (1500-7000); Neutrophils Percent Auto 56.2 % (50-75); Platelet Count 194 X10^3/uL (150-400); Red Blood Cell Count 3.82 X10^6/uL (4.0-5.2); Red Cell Distribution Width 16.1 % (11.6-14.8); White Blood Cell Count 5.4 X10^3/uL (4.5-11.0)
[2019-02-17 14:01] LABS: Creatine Kinase 943 U/L (30-135); Lipase 127 U/L (23-300)
[2019-02-17 14:03] LABS: Alanine Aminotransferase 25 IU/L (9-52); Albumin 4.4 g/dL (3.5-5.0); Albumin Globulin Ratio 1.5 (1.0-2.8); Alkaline Phosphatase 79 U/L (38-126); Aspartate Aminotransferase 49 IU/L (14-36); BUN Creatinine Ratio 23.9 (6-22); Bilirubin Total 1.5 mg/dL (0.2-1.3); Blood Urea Nitrogen 43 mg/dL (7-17); Calcium 8.7 mg/dL (8.4-10.2); Carbon Dioxide 26 mmol/L (22-32); Chloride 103 mmol/L (98-107); Estimated Glomerular Filt Rate 27.7 mL/min (>60); Ethanol (ETOH) < 10 mg/dL; Glucose 100 mg/dL (80-110); HEMOLYSIS < 15 (0-50); Potassium 4.1 mmol/L (3.4-5.1); Sodium 139 mmol/L (137-145); Total Protein 7.4 g/dL (6.3-8.2)
[2019-02-17 14:13] LABS: Troponin I < 0.012 ng/mL (0.01-0.034)
[2019-02-17 14:16] LABS: CKMB % Relative Index 0.6 % (1.5-5.0); Creatine Kinase MB 5.47 ng/mL (<2.37)
[2019-02-17 14:32] LABS: Thyroid Stimulating Hormone 1.11 uIU/mL (0.47-4.68)
--- NOTE | 2019-02-17 17:04 | CM.SWNOTE ---
ED DISPATCH CLERK Note: Presenting Problem: Pt is a 73 yo woman who presented to the Ed with pain,b ut DISPATCH CLERK was asked to meet with pt due to a variety of psycho-social concerns. Pt reported that she has been living with her ex boyfriend for the past 6 months, but has been told that she needs to move out. Pt was not clear how much time she had to find a place and was very tearful when she exclaimed I'm too old to live on the streets. It was noted in the H&P that she had spent her SS check, but when asked about this, she reported that it was coming in a week and she had used some of it to buy things for herself because she was angry at Ephraim, but had not blown her whole check. Precipitating event: Pt's abdominal pain which brought her into the ED may have resulted form increased stress . She is very frightened about needing to find a new home and fears not being able to do so. SHe likes [place] and wants to remain living in town. Medications: Pt reported that she has been on medications for bipolar disorder in the past, and some have been helpful, but is not currently prescribed any medications. Pt has neither a PCP or behavioral health provider Past Psychiatric History: Pt reported that she had her frist suicide attempt in 7th grade and her most recent 7 years ago. She could nt provide the names of the hospitals where she has been previously admitted. Suicide attempts have included overdoses. Substance abuse: Pt was avoidant on the subject. She reported initially that she was not much of a drinker, but then stated that with problems with hepatitis, she should not drink at all. When asked how much she drinks, she stated she may binge on occasion. DISPATCH CLERK asked about drug use and pt stated that she had taken something 2 days ago, and was not sure what this was,although it may have been acid. She did not believe that her current rapid speech and racing thoguhts were related to this drug use. Mental Status: Orientation: Pt was A/O. Affect: tearful, appropriate, anxious. Mood: sad Speech: rapid, moderately tangential, with reported racing thoughts Insight: fair Judgment: fair Concentration: salty and pt was easily distracted SI/HI: denied Plan: Pt discharged back to [facility] where she is living temporarily. She was provided with information re shelters, apartments, DV, PCP, and 02/01 crisis line. She is also aware that she can return to the ED if physical or emotional symptoms worsen. Discharge Planning/Care Management ED Crisis Response Assessment Start: 02/17/19 16:54 Freq: Status: Discharge Protocol: Document 02/17/19 16:54 BG (Rec: 02/17/19 17:04 BG [id number]) ED Crisis Response Assessment DISPATCH CLERK Assessment Type Mental Health,Other Reason for DISPATCH CLERK Referral Pt very tearful, anxious and unclear picture of need. Referred by ED staff Presenting Problem QING met with pt who was shaking, tearful and stated that she is unable to stay at her current location as it is her ex-bf's home. She reported that she and Ephraim have been on and off together for 17 years. Pt's speech was rapid and difficult to follow. Mental health diagnosis Manic/Depression as reported by pt. DISPATCH CLERK mentioned that it is now called bipolar and pt acknowledged this as the accurate diagnosis given to her. VOA/CMS check No Suicidal thoughts No Past Suicidal thoughts Yes Current Suicidal thoughts No Prior Suicide attempts Yes Current plan for self harm No Thoughts of harm to others No Past thoughts of harm to others No Current thoughts of harming others No Current plan to harm others No Current Risk factors Substance abuse,Financial difficulties,Marital and family difficulties Risk factor comments Pt reported that although lamont cotter is loud and yells, she does not feel in danger. She also stated that she has had a hx of suicide attempts, but denies any current SI. Relevant Medical History Pt reported a hx of hepatitis beginning at age 9 Crisis Plan Pt was provided a brochure from [facility] with 02/01 crisis line pointed out to her . DISPATCH CLERK also gave pt a list of PCPs and the senior housing guide. DISPATCH CLERK showed pt the list of apartments enclosed. IN addition, DISPATCH CLERK provided a list of shelters in the area should pt be told to leave her current residence immediately. Resources Provided See above Action taken Sent home w/ safety plan Additional Comment Pt is not suicidal, but knows she can return to ED if necessary. She is also aware of the 02/01 Crisis line.
== END 2019-02-17 16:57 | disposition home or self-care (01) ==
PROVIDERS: Emergency Provider Emergency Medicine
DX: R10.11 Right upper quadrant pain (principal)
CPT/HCPCS: 36415; 76705; 80053; 80320; 82550; 82553; 83690; 84443; 84484; 85025; 93005; 93010; 99281; 99285

== ENCOUNTER 2019-06-17 21:37 | Inpatient (IN) | payer MEDICARE, SELFPAY ==
--- NOTE | 2019-06-17 21:42 | ED.PSYCH ---
HPI - Psych General Chief Complaint: Psychiatric Symptoms Stated Complaint: DEPRESSION Time Seen by Provider: 06/17/19 21:37 Source: patient Mode of arrival: Ambulatory Limitations: no limitations History of Present Illness HPI Narrative: 73-year-old female smoker with history of bipolar presents with suicidal ideation and a plan of jumping off a roma. She states that she is actively suicidal because she has no support at home, feels alone and wants to end it. She has been at inpatient facilities in the past, it sounds like there was 1 in [facility] within the past few years. She denies use of any alcohol or street drugs. She hasn't taken her bipolar meds in 3 years because she doesn't like how it makes her feel. She has been increasingly more depressed and started feeling suicidal over the past week or so, since she has been living with her ex-. She states that the flight of ideas and grandiose thinking and other manic complaints have been presenting for about the past 2 weeks or so. She has no primary care provider and denies having any psychiatrist or therapist. She has never been involved with [facility]. MD complaint: suicidal ideation and feels depressed Onset (ago): week(s) Duration: constant History of same: Yes Relieving factors: none Exacerbating factors: none Context: not taking psychiatric medications Associated psychiatric symptoms: depression, suicidal ideation and racing thoughts Treatments prior to arrival: none If self harm: admits thoughts of self harm and has plan Related Data Home Medications Medication Instructions Recorded Confirmed No Known Home Medications 02/17/19 06/18/19 Allergies Allergy/AdvReac Type Severity Reaction Status Date / Time No Known Drug Allergies Allergy Verified 02/17/19 13:05 Review of Systems Constitutional Constitutional: Denies chills, Denies fatigue, Denies fever(s), Denies frequent falls, Denies lethargy and Denies weakness Eyes Eyes: Denies change in vision, Denies eye discharge, Denies irritation and Denies loss of vision ENT Ears, Nose, Mouth, and Throat: Denies change in voice, Denies dizziness, Denies neck pain, Denies sore throat and Denies throat swelling Cardiovascular Cardiovascular: Denies chest pain, Denies irregular heart rhythm, Denies lightheadedness, Denies palpitations, Denies dyspnea, Denies dyspnea on exertion and Denies orthopnea Respiratory Respiratory: Denies cough, Denies dyspnea, Denies dyspnea on exertion and Denies wheezing Gastrointestinal Gastrointestinal: Denies abdominal pain, Denies change in bowel habits, Denies diarrhea, Denies nausea and Denies vomiting Genitourinary Genitourinary: Denies hematuria, Denies flank pain, Denies urinary incontinence and Denies urinary urgency Musculoskeletal Musculoskeletal: Denies back pain, Denies muscle weakness, Denies neck pain, Denies numbness and Denies tingling Integumentary/Breasts Skin/Breast: Denies pruritus, Denies erythema, Denies rash and Denies wounds Neurologic Neurologic: Reports behavioral changes, Denies confusion, Denies dizziness, Denies frequent falls, Denies loss of vision, Denies numbness, Denies tingling and Denies weakness Psychiatric Psychiatric: Reports anxiety, Reports behavioral changes, Denies confusion, Reports depression, Reports hopelessness, Denies homicidal ideation and Reports suicidal ideation Endocrine Endocrine: Denies fatigue, Denies flushing and Denies palpitations Hematologic/Lymphatic Hematologic/Lymphatic: Denies easy bruising Allergic/Immunologic Allergic/Immunologic: Denies urticaria, Denies throat swelling and Denies wheezing Patient History Medical History Anxiety and depression (Chronic) Depression with anxiety (Chronic) Hepatitis B (Chronic) Pancreatitis (Resolved) Suicide attempt (Resolved) Suicide attempt (Resolved) Surgical History H/O: hysterectomy (Resolved) Hx of appendectomy (Acute) Hx of tonsillectomy (Acute) Family History Mother Cancer Father Alzheimer disease Social History household members: none Smoking Status: Current every day smoker Tobacco: How many years used: 15 alcohol intake: current substance use type: methamphetamine (History of meth use in last week. ) Smoking Status: Current every day smoker alcohol intake frequency: 0-2 drinks per day Substance Use Type: does not use Exam Narrative Exam Narrative: GENERAL: [73] year old patient appears stated age. Malnourished, disheveled, tearful, pressured speech and racing thoughts HEAD: Atraumatic. Normocephalic. EYES: Pupils equal round and reactive. Extraocular motions intact. No scleral icterus. No injection or drainage. ENT: Poor dentition throughout Nose without bleeding, purulent drainage. Dry mucous members Throat without erythema, tonsillar hypertrophy or exudate. Airway patent. NECK: Trachea midline. Non tender CARDIOVASCULAR: Regular rate and rhythm without murmurs, gallops, or rubs. RESPIRATORY: Clear to auscultation. Breath sounds equal bilaterally. No wheezes, rales, or rhonchi. GASTROINTESTINAL: Abdomen soft, non-tender, nondistended. EXTREMITIES: No edema or joint tenderness. BACK: Nontender without deformity or crepitance. No flank tenderness. NEURO: AOx3. SKIN: No rash or erythema of visible areas Initial Vital Signs Initial Vital Signs: Vital Signs Temperature 98.0 F 06/17/19 21:58 Pulse Rate 96 H 06/17/19 21:58 Respiratory Rate 18 06/17/19 21:58 Blood Pressure 147/109 H 06/17/19 21:58 Pulse Oximetry 99 06/17/19 21:58 Course Course Course Narrative: patient resting comfortably. Making urine after few liters of fluid. renal function improving. Exam, history and response to fluids would indicate this acute kidney injury is prerenal and likely a consequence of her mental illness as she hasn't been caring for herself and not eating or drinking. Orders Ordered: Acetaminophen (Tylenol) 650 mg PO Q6HR PRN PRN Reason: Fever/Mild Pain (1-3) Last Admin: 06/19/19 16:47 Dose: 650 mg Documented by: Admin: 06/19/19 09:15 Dose: 650 mg Documented by: Admin: 06/18/19 18:46 Dose: 650 mg Documented by: Admin: 06/18/19 11:50 Dose: 650 mg Documented by: WINNIE Loperamide HCl (Immodium Liquid) 2 mg PO Q4HR PRN PRN Reason: Diarrhea Last Admin: 06/19/19 16:47 Dose: 2 mg Documented by: RAKAN Naloxone HCl (Narcan) 0.2 mg IV Q2MIN PRN PRN Reason: Opiate Reversal Nicotine (Nicoderm) 21 mg TOP DAILY KAMRAN Last Admin: 06/19/19 17:09 Dose: 21 mg Documented by: Admin: 06/19/19 09:15 Dose: 21 mg Documented by: Admin: 06/18/19 14:35 Dose: 21 mg Documented by: WINNIE Ondansetron HCl (Zofran) 4 mg IV Q8HR PRN PRN Reason: Nausea And Vomiting Quetiapine Fumarate (Seroquel) 50 mg PO BEDTIME COUNTS INCLUDE 234 BEDS AT THE [facility] Last Admin: 06/19/19 19:41 Dose: 50 mg Documented by: Admin: 06/18/19 18:51 Dose: 50 mg Documented by: GUERO Discontinued Medications Sodium Chloride (Normal Saline 0.9%) 1,000 mls @ 1,000 mls/hr IV BOLUS ONE Stop: 06/18/19 00:14 Last Infusion: 06/18/19 01:29 Dose: 1,000 mls/hr Documented by: Admin: 06/17/19 23:37 Dose: 1,000 mls/hr Documented by: EARLINE Sodium Chloride (Normal Saline 0.9%) 1,000 mls @ 1,000 mls/hr IV BOLUS ONE Stop: 06/18/19 03:03 Last Infusion: 06/18/19 03:45 Dose: 0 mls/hr Documented by: Admin: 06/18/19 02:04 Dose: 1,000 mls/hr Documented by: MORA Lactated Ringer's (Lactated Ringers) 1,000 mls @ 1,000 mls/hr IV BOLUS ONE Stop: 06/18/19 05:21 Last Infusion: 06/18/19 06:07 Dose: 1,000 mls/hr Documented by: Admin: 06/18/19 04:33 Dose: 1,000 mls/hr Documented by: MORA Sodium Chloride (Normal Saline 0.9%) 1,000 mls @ 150 mls/hr IV CONT KAMRAN Last Infusion: 06/19/19 09:15 Dose: 0 mls/hr Documented by: Admin: 06/19/19 03:15 Dose: 150 mls/hr Documented by: Infusion: 06/19/19 03:15 Dose: 150 mls/hr Documented by: Admin: 06/18/19 21:07 Dose: 150 mls/hr Documented by: Infusion: 06/18/19 20:23 Dose: 150 mls/hr Documented by: Admin: 06/18/19 13:42 Dose: 150 mls/hr Documented by: Infusion: 06/18/19 13:42 Dose: 150 mls/hr Documented by: Admin: 06/18/19 07:21 Dose: 150 mls/hr Documented by: WINNIE Lorazepam (Ativan) 1 mg PO NOW ONE Stop: 06/17/19 21:58 Last Admin: 06/17/19 22:16 Dose: 1 mg Documented by: ABELINO Quetiapine Fumarate (Seroquel) 25 mg PO NOW ONE Stop: 06/19/19 00:01 Last Admin: 06/19/19 07:36 Dose: Not Given Documented by: WINNIE Vital Signs Vital signs: Vital Signs - 8 hr 06/18/19 00:54 06/18/19 05:18 Pulse Rate 91 H 85 Respiratory Rate 15 Blood Pressure [Left Arm] 124/76 113/88 Pulse Oximetry 97 97 MDM - Psych Lab Data Result diagrams: 06/19/19 04:35 06/19/19 04:35 Labs: Lab Results 06/17/19 06/17/19 06/17/19 Range/Units 22:35 22:35 22:35 WBC 8.9 (4.5-11.0) X10^3/uL RBC 3.87 L (4.0-5.2) X10^6/uL Hgb 12.4 (12.0-16.0) g/dL Hct 36.7 (36-46) % MCV 94.9 (80-100) fL MCH 32.1 (26-34) PG MCHC 33.9 (30-36) % RDW 14.4 (11.6-14.8) % Plt Count 260 (150-400) X10^3/uL Neut % (Auto) 66.1 (50-75) % Lymph % (Auto) 23.3 L (25-40) % [place] % (Auto) 8.4 (3-14) % Eos % (Auto) 1.2 L (2-4) % Baso % (Auto) 1.0 (0-2) % Neut # (Auto) 5900 (9008-3910) /uL Lymph # (Auto) 2100 (5832-2473) /uL [place] # (Auto) 800 (0-900) /uL Eos # (Auto) 100 (0-450) /uL Baso # (Auto) 100 (0-100) /uL Sodium 139 (137-145) mmol/L Potassium 4.1 (3.4-5.1) mmol/L Chloride 103 (98-107) mmol/L Carbon Dioxide 21 L (22-32) mmol/L BUN 54 H (7-17) mg/dL Creatinine 2.90 H (0.52-1.04) mg/dL Estimated GFR 16.0 L (>60) mL/min BUN/Creatinine Ratio 18.6 (6-22) Glucose 106 (80-110) mg/dL Calcium 9.1 (8.4-10.2) mg/dL Phosphorus (2.8-4.1) mg/dL Total Bilirubin 1.6 H (0.2-1.3) mg/dL AST 67 H (14-36) IU/L ALT 27 (<35) IU/L Alkaline Phosphatase 88 (38-126) U/L Total Protein 8.1 (6.3-8.2) g/dL Albumin 5.0 (3.5-5.0) g/dL Globulin 3.1 (1.7-4.1) g/dL Albumin/Globulin Ratio 1.6 (1.0-2.8) TSH 1.61 (0.47-4.68) uIU/mL Urine Color Urine Appearance Urine pH (4.5-8.0) Ur Specific [place] (1.000-1.035) Urine Protein (Negative) Urine Glucose (UA) (Negative) g/dL Urine Ketones (NEGATIVE) Urine Occult Blood (Negative) Urine Nitrate (Negative) Urine Bilirubin (NEGATIVE) Urine Urobilinogen (0.2) E.U./dL Ur Leukocyte Esterase (NEGATIVE) Urine RBC (0-5/HPF) Urine WBC (0-5/HPF) Urine Bacteria (None) Ur Culture Indicated? Nasal Screen MRSA (PCR) (Negative) U Opiates 300ng/mL cut (Negative) Ur Oxycodone Screen (Negative) Urine Methadone Screen (Negative) Ur Barbiturates Screen (Negative) U Tricyclic Antidepress (Negative) Ur Phencyclidine Scrn (Negative) Ur Amphetamines Screen (Negative) U Methamphetamines Scrn (Negative) Ur MDMA Scrn (Ecstasy) (Negative) U Benzodiazepines Scrn (Negative) Urine Cocaine Screen (Negative) U Marijuana (THC) Screen (Negative) Ethyl Alcohol < 10 ( - 10) mg/dL 06/18/19 06/18/19 06/18/19 Range/Units 00:10 00:10 01:25 WBC (4.5-11.0) X10^3/uL RBC (4.0-5.2) X10^6/uL Hgb (12.0-16.0) g/dL Hct (36-46) % MCV (80-100) fL MCH (26-34) PG MCHC (30-36) % RDW (11.6-14.8) % Plt Count (150-400) X10^3/uL Neut % (Auto) (50-75) % Lymph % (Auto) (25-40) % [place] % (Auto) (3-14) % Eos % (Auto) (2-4) % Baso % (Auto) (0-2) % Neut # (Auto) (5370-1336) /uL Lymph # (Auto) (8014-7729) /uL [place] # (Auto) (0-900) /uL Eos # (Auto) (0-450) /uL Baso # (Auto) (0-100) /uL Sodium (137-145) mmol/L Potassium (3.4-5.1) mmol/L Chloride (98-107) mmol/L Carbon Dioxide (22-32) mmol/L BUN (7-17) mg/dL Creatinine 2.10 H (0.52-1.04) mg/dL Estimated GFR 23.2 L (>60) mL/min BUN/Creatinine Ratio (6-22) Glucose (80-110) mg/dL Calcium (8.4-10.2) mg/dL Phosphorus (2.8-4.1) mg/dL Total Bilirubin (0.2-1.3) mg/dL AST (14-36) IU/L ALT (<35) IU/L Alkaline Phosphatase (38-126) U/L Total Protein (6.3-8.2) g/dL Albumin (3.5-5.0) g/dL Globulin (1.7-4.1) g/dL Albumin/Globulin Ratio (1.0-2.8) TSH (0.47-4.68) uIU/mL Urine Color Yellow Urine Appearance Clear Urine pH 5.0 (4.5-8.0) Ur Specific [place] 1.015 (1.000-1.035) Urine Protein Trace H (Negative) Urine Glucose (UA) Negative (Negative) g/dL Urine Ketones Trace H (NEGATIVE) Urine Occult Blood Trace-lysed (Negative) Urine Nitrate Negative (Negative) Urine Bilirubin Negative (NEGATIVE) Urine Urobilinogen 0.2 (0.2) E.U./dL Ur Leukocyte Esterase Trace H (NEGATIVE) Urine RBC None seen (0-5/HPF) Urine WBC 1-5/hpf (0-5/HPF) Urine Bacteria Occasional (0-1) (None) Ur Culture Indicated? Specimen cultured Nasal Screen MRSA (PCR) (Negative) U Opiates 300ng/mL cut Negative (Negative) Ur Oxycodone Screen Negative (Negative) Urine Methadone Screen Negative (Negative) Ur Barbiturates Screen Negative (Negative) U Tricyclic Antidepress Negative (Negative) Ur Phencyclidine Scrn Negative (Negative) Ur Amphetamines Screen Positive H (Negative) U Methamphetamines Scrn Positive H (Negative) Ur MDMA Scrn (Ecstasy) Negative (Negative) U Benzodiazepines Scrn Negative (Negative) Urine Cocaine Screen Negative (Negative) U Marijuana (THC) Screen Negative (Negative) Ethyl Alcohol ( - 10) mg/dL 06/18/19 06/18/19 06/18/19 Range/Units 01:25 04:15 04:30 WBC (4.5-11.0) X10^3/uL RBC (4.0-5.2) X10^6/uL Hgb (12.0-16.0) g/dL Hct (36-46) % MCV (80-100) fL MCH (26-34) PG MCHC (30-36) % RDW (11.6-14.8) % Plt Count (150-400) X10^3/uL Neut % (Auto) (50-75) % Lymph % (Auto) (25-40) % [place] % (Auto) (3-14) % Eos % (Auto) (2-4) % Baso % (Auto) (0-2) % Neut # (Auto) (0053-6726) /uL Lymph # (Auto) (2956-1045) /uL [place] # (Auto) (0-900) /uL Eos # (Auto) (0-450) /uL Baso # (Auto) (0-100) /uL Sodium 141 (137-145) mmol/L Potassium 3.9 (3.4-5.1) mmol/L Chloride 110 H (98-107) mmol/L Carbon Dioxide 23 (22-32) mmol/L BUN 46 H (7-17) mg/dL Creatinine 1.90 H (0.52-1.04) mg/dL Estimated GFR 26.1 L (>60) mL/min BUN/Creatinine Ratio 24.2 H (6-22) Glucose 105 (80-110) mg/dL Calcium 7.8 L (8.4-10.2) mg/dL Phosphorus 5.9 H (2.8-4.1) mg/dL Total Bilirubin (0.2-1.3) mg/dL AST (14-36) IU/L ALT (<35) IU/L Alkaline Phosphatase (38-126) U/L Total Protein (6.3-8.2) g/dL Albumin (3.5-5.0) g/dL Globulin (1.7-4.1) g/dL Albumin/Globulin Ratio (1.0-2.8) TSH (0.47-4.68) uIU/mL Urine Color Urine Appearance Urine pH (4.5-8.0) Ur Specific [place] (1.000-1.035) Urine Protein (Negative) Urine Glucose (UA) (Negative) g/dL Urine Ketones (NEGATIVE) Urine Occult Blood (Negative) Urine Nitrate (Negative) Urine Bilirubin (NEGATIVE) Urine Urobilinogen (0.2) E.U./dL Ur Leukocyte Esterase (NEGATIVE) Urine RBC (0-5/HPF) Urine WBC (0-5/HPF) Urine Bacteria (None) Ur Culture Indicated? Nasal Screen MRSA (PCR) Negative for mrsa (Negative) U Opiates 300ng/mL cut (Negative) Ur Oxycodone Screen (Negative) Urine Methadone Screen (Negative) Ur Barbiturates Screen (Negative) U Tricyclic Antidepress (Negative) Ur Phencyclidine Scrn (Negative) Ur Amphetamines Screen (Negative) U Methamphetamines Scrn (Negative) Ur MDMA Scrn (Ecstasy) (Negative) U Benzodiazepines Scrn (Negative) Urine Cocaine Screen (Negative) U Marijuana (THC) Screen (Negative) Ethyl Alcohol ( - 10) mg/dL Imaging Data Renal US: Radiologist's Impression: No ureteral stones or hydronephrosis. Discharge Plan Departure Patient Disposition: Admitted As Inpatient Clinical Impression: Acute kidney injury, Manic episode, Depression with suicidal ideation Discharge Date/Time: 06/18/19 06:17 Admit Date/Time: 06/18/19 05:54 Admit Provider: Syeda Nguyen
[2019-06-17 21:58] VITALS: BP 147/109; PULSE 96; RESP 18; TEMP 36.7; O2SAT 99
[2019-06-17] MEDS: LORazepam 0.5 MG TABLET 1 MG PO (22:16)
[2019-06-17 22:42] LABS: Add Manual Diff / Slide Review NO; Basophils Absolute Auto 100 /uL (0-100); Eosinophils Absolute Auto 100 /uL (0-450); Eosinophils Percent Auto 1.2 % (2-4); Hematocrit 36.7 % (36-46); Hemoglobin 12.4 g/dL (12.0-16.0); Lymphocytes Absolute Auto 2100 /uL (1100-4500); Lymphocytes Percent Auto 23.3 % (25-40); Mean Corpuscular HGB Conc 33.9 % (30-36); Mean Corpuscular Hemoglobin 32.1 PG (26-34); Mean Corpuscular Volume 94.9 fL (80-100); Monocytes Absolute Auto 800 /uL (0-900); Monocytes Percent Auto 8.4 % (3-14); Neutrophils Absolute Auto 5900 /uL (1500-7000); Neutrophils Percent Auto 66.1 % (50-75); Platelet Count 260 X10^3/uL (150-400); Red Blood Cell Count 3.87 X10^6/uL (4.0-5.2); Red Cell Distribution Width 14.4 % (11.6-14.8); White Blood Cell Count 8.9 X10^3/uL (4.5-11.0)
--- NOTE | 2019-06-17 22:45 | PC.NURSE ---
Pt ambulated to bathroom but states she couldn't void. Pt given snack and drink.
[2019-06-17 22:51] LABS: Alanine Aminotransferase 27 IU/L (<35); Albumin Globulin Ratio 1.6 (1.0-2.8); Alkaline Phosphatase 88 U/L (38-126); Aspartate Aminotransferase 67 IU/L (14-36); BUN Creatinine Ratio 18.6 (6-22); Bilirubin Total 1.6 mg/dL (0.2-1.3); Blood Urea Nitrogen 54 mg/dL (7-17); Calcium 9.1 mg/dL (8.4-10.2); Carbon Dioxide 21 mmol/L (22-32); Chloride 103 mmol/L (98-107); Ethanol (ETOH) < 10 mg/dL; Globulin 3.1 g/dL (1.7-4.1); Glucose 106 mg/dL (80-110); HEMOLYSIS < 15 (0-50); Potassium 4.1 mmol/L (3.4-5.1); Sodium 139 mmol/L (137-145); Total Protein 8.1 g/dL (6.3-8.2)
--- NOTE | 2019-06-17 23:15 | DI.US.S_ITS ---
PROCEDURE: US RENAL COMPLETE INDICATIONS: ACUTE RENAL FAILURE TECHNIQUE: Real-time scanning was performed of the kidneys and bladder, with image documentation. COMPARISON: [facility], CT, CT ABDOMEN PELVIS W CON, 10/02/2018, 16:40. [facility], US, US ABDOMEN LIMITED, 02/17/2019, 14:32. FINDINGS: Kidneys: Kidneys are normal in size. Right kidney measures 9.2 cm long; left kidney measures 10.0 cm long. Right renal cortical thickness is 1.5 cm; left renal cortical thickness is 1.4 cm. Renal cortical echotexture is normal. No hydronephrosis or nephrolithiasis. There is soft tissue prominence in the superior pole of the left kidney. Bladder: Pre-void bladder volume is 146 mL. Post-void residual is 0 mL. Pre-void images demonstrate no intraluminal masses or stones. On pre-void images, neither ureteral jets are noted with color Doppler interrogation. (Of note, ureteral jets may not be detectable in up to 25% of cases due to insufficient differences in specific gravity between ureteral and bladder urine). Miscellaneous: No free pelvic fluid. IMPRESSION: 1. No ultrasound findings to explain acute renal failure. 2. No renal stone hydronephrosis. 2. Soft tissue prominence in the superior pole the left kidney. Cannot rule out a left renal mass. Renal protocol CT is suggested for further evaluation. No significant discrepancy with the shift superintendent caustic cresylate radiology preliminary report. Dictated by: Jeff Weathers M.D. on 06/18/2019 at 9:12 Approved by: Jeff Weathers M.D. on 06/18/2019 at 9:18
[2019-06-17 23:33] LABS: Thyroid Stimulating Hormone 1.61 uIU/mL (0.47-4.68)
[2019-06-17] MEDS: SODIUM CHLORIDE 0.9% 1,000 ML 1000 ML IV (23:37)
[2019-06-18] VITALS (11 sets, daily range): BP systolic 113–136; BP diastolic 73–94; PULSE 84–91; RESP 14–20; TEMP 36.5–37.3; O2SAT 96–97; BMI 17.2
[2019-06-18 00:24] LABS: RBC Urine None Seen (0-5/HPF)
[2019-06-18 00:26] LABS: Appearance Urine UA CLEAR; Bilirubin Urine UA NEGATIVE (NEGATIVE); Color Urine UA YELLOW; Glucose Urine UA NEGATIVE (Negative); Ketones Urine UA TRACE (NEGATIVE); Leukocyte Esterase Urine UA TRACE (NEGATIVE); Nitrite Urine UA NEGATIVE (Negative); Occult Blood Urine UA TRACE-LYSED (Negative); Protein Urine UA TRACE (Negative); Specific Gravity Urine UA 1.015 (1.000-1.035); Urobilinogen Urine UA 0.2 E.U./dL (0.2)
[2019-06-18 00:41] LABS: Ur Creatinine 50 (Normal); Ur Specific Gravity 1.025 (Normal); Urine Tetrahydrocannabinol Negative (Negative); Urine pH 5 (Normal)
[2019-06-18 00:42] LABS: UR Morphine/Opiate cutoff 300 Negative (Negative); Urine Amphetamines Positive (Negative); Urine Barbiturates Negative (Negative); Urine Benzodiazepines Negative (Negative); Urine Cocaine Negative (Negative); Urine MDMA Negative (Negative); Urine Methadone Negative (Negative); Urine Methamphetamines Positive (Negative); Urine Oxycodone Negative (Negative); Urine Phencyclidine Negative (Negative); Urine Tricyclic Antidepressant Negative (Negative)
[2019-06-18 00:48] LABS: Bacteria Urine Occasional (0-1); Culture Indicated Urine Specimen Cultured; WBC Urine 1-5/HPF (0-5/HPF)
[2019-06-18 01:41] LABS: Estimated Glomerular Filt Rate 23.2 mL/min (>60)
[2019-06-18] MEDS: SODIUM CHLORIDE 0.9% 1,000 ML 1000 ML IV (02:04)
--- NOTE | 2019-06-18 04:27 | PC.NURSE ---
Pt now sleeping, second liter NS complete, Dr Jaimes aware. Repeat labs ordered. Sitter outside room for safety.
[2019-06-18] MEDS: LACTATED RINGERS 1,000 ML 1000 ML IV (04:33)
[2019-06-18 04:36] LABS: BUN Creatinine Ratio 24.2 (6-22); Blood Urea Nitrogen 46 mg/dL (7-17); Calcium 7.8 mg/dL (8.4-10.2); Carbon Dioxide 23 mmol/L (22-32); Chloride 110 mmol/L (98-107); Estimated Glomerular Filt Rate 26.1 mL/min (>60); Glucose 105 mg/dL (80-110); HEMOLYSIS < 15 (0-50); Potassium 3.9 mmol/L (3.4-5.1); Sodium 141 mmol/L (137-145)
--- NOTE | 2019-06-18 05:30 | PC.NURSE ---
hospitalist talking to patient
--- NOTE | 2019-06-18 05:47 | PC.NURSE ---
patient up to restroom and snack provided
--- NOTE | 2019-06-18 06:10 | PC.NURSE ---
patient is going to ICU
--- NOTE | 2019-06-18 06:18 | PM.HP.1 ---
History of Present Illness History of Present Illness Date Patient Seen: 06/18/19 Time Patient Seen: 05:00 Chief complaint: DEPRESSION Narrative: Janett Downs is a 73 y.o. female with a history of depression and bipolar disorder presented to the ED with suicidal ideation. She was deemed to be appropriate for transfer to a psychiatric facility but due to a new acute kidney injury, was not able to be medically cleared for transfer. Patient is a difficult historian and is quite tangential in her answers. She does indicate she thought she had the flu and was nauseous. Stated she normally drinks a lot of water but has not been recently. She denies fever, chills or sweats, chest pain, shortness of breath, she did state that she is urinating more than usual, denies muscle aches and pains, or skin rashes or lesions. The patient has had a lifelong history of depression, states she has tried medications and has not been taking anything for several years. She states she is very active and that depression medications make her feel poorly. She does admit to 4 suicide attempts. Currently she moved in with her ex-, but feels that she will not be able to return to him when discharged. She did admit to using methamphetamine approximately one week ago. She is not followed by a primary care provider, nor is she followed by psychiatry. She presented to the ED with a creatinine of 2.9 and with 3 liters of normal saline the ED was only able to decrease her creatinine to 1.9. Her baseline creatinine is 0.8. Renal ultrasound was performed in the ED, however the imaging report is not available as yet. Patient History Family & Social History Family History Mother Cancer Father Alzheimer disease Safety & Behavioral: Feels Safe in Current No Environment Suicidal Ideation Description Vague,Frequent Suicide Plan Description Vague Tobacco & Substance use: Smoking Status 1/2-1 ppd alcohol intake current alcohol intake frequency 0-2 drinks per day Substance Use Type Methamphetamine, last used 1 week ago Meds Home Medications and Allergies Home Medications Medication Instructions Recorded Confirmed Type No Known Home Medications 02/17/19 06/18/19 History Allergies Allergy/AdvReac Type Severity Reaction Status Date / Time No Known Drug Allergies Allergy Verified 02/17/19 13:05 Review of Systems Review of Systems Narrative: All systems reviewed and are negative except as noted in the HPI. Exam Vital Signs (past 8 hours): - 06/18/19 00:54 06/18/19 05:18 06/18/19 06:10 Pulse Rate 91 H 85 84 Respiratory Rate 15 14 Blood Pressure 136/88 Blood Pressure [Left Arm] 124/76 113/88 Pulse Oximetry 97 97 97 Oxygen Delivery Method Room Air Narrative Exam Narrative: Gen: Alert, cooperative and cachectic 73 y.o. female, ill appearing HEENT: normocephalic, atraumatic, conjunctiva clear, sclera non-icteric, oral mucosa dry Neck: supple, full ROM Resp: Lungs CTA, non-labored breathing CV: RRR, no murmur or rubs Abd: soft, non-tender, normoactive BTs Skin: no lesions or rashes, dry and intact Neuro: Generalized hyperactive with twitching, alert and oriented X 4 w/no focal deficits Extremities: hyperactive with repetitive pill-rolling appearing movement of her hands, moves all 4 extremities, is ambulatory, negative Haleigh?s sign Psyche: Speech is pressured and tangential, she is cooperative with questioning Objective Labs Result Diagrams: 06/17/19 22:35 06/18/19 04:15 Labs: Laboratory Results - last 24 hr 06/17/19 06/17/19 06/17/19 22:35 22:35 22:35 WBC 8.9 RBC 3.87 L Hgb 12.4 Hct 36.7 MCV 94.9 MCH 32.1 MCHC 33.9 RDW 14.4 Plt Count 260 Neut % (Auto) 66.1 Lymph % (Auto) 23.3 L [place] % (Auto) 8.4 Eos % (Auto) 1.2 L Baso % (Auto) 1.0 Neut # (Auto) 5900 Lymph # (Auto) 2100 [place] # (Auto) 800 Eos # (Auto) 100 Baso # (Auto) 100 Sodium 139 Potassium 4.1 Chloride 103 Carbon Dioxide 21 L BUN 54 H Creatinine 2.90 H Estimated GFR 16.0 L BUN/Creatinine Ratio 18.6 Glucose 106 Calcium 9.1 Total Bilirubin 1.6 H AST 67 H ALT 27 Alkaline Phosphatase 88 Total Protein 8.1 Albumin 5.0 Globulin 3.1 Albumin/Globulin Ratio 1.6 TSH 1.61 Urine Color Urine Appearance Urine pH Ur Specific [place] Urine Protein Urine Glucose (UA) Urine Ketones Urine Occult Blood Urine Nitrate Urine Bilirubin Urine Urobilinogen Ur Leukocyte Esterase Urine RBC Urine WBC Urine Bacteria Ur Culture Indicated? U Opiates 300ng/mL cut Ur Oxycodone Screen Urine Methadone Screen Ur Barbiturates Screen U Tricyclic Antidepress Ur Phencyclidine Scrn Ur Amphetamines Screen U Methamphetamines Scrn Ur MDMA Scrn (Ecstasy) U Benzodiazepines Scrn Urine Cocaine Screen U Marijuana (THC) Screen Ethyl Alcohol < 10 06/18/19 06/18/19 06/18/19 00:10 00:10 01:25 WBC RBC Hgb Hct MCV MCH MCHC RDW Plt Count Neut % (Auto) Lymph % (Auto) [place] % (Auto) Eos % (Auto) Baso % (Auto) Neut # (Auto) Lymph # (Auto) [place] # (Auto) Eos # (Auto) Baso # (Auto) Sodium Potassium Chloride Carbon Dioxide BUN Creatinine 2.10 H Estimated GFR 23.2 L BUN/Creatinine Ratio Glucose Calcium Total Bilirubin AST ALT Alkaline Phosphatase Total Protein Albumin Globulin Albumin/Globulin Ratio TSH Urine Color Yellow Urine Appearance Clear Urine pH 5.0 Ur Specific [place] 1.015 Urine Protein Trace H Urine Glucose (UA) Negative Urine Ketones Trace H Urine Occult Blood Trace-lysed Urine Nitrate Negative Urine Bilirubin Negative Urine Urobilinogen 0.2 Ur Leukocyte Esterase Trace H Urine RBC None seen Urine WBC 1-5/hpf Urine Bacteria Occasional (0-1) Ur Culture Indicated? Specimen cultured U Opiates 300ng/mL cut Negative Ur Oxycodone Screen Negative Urine Methadone Screen Negative Ur Barbiturates Screen Negative U Tricyclic Antidepress Negative Ur Phencyclidine Scrn Negative Ur Amphetamines Screen Positive H U Methamphetamines Scrn Positive H Ur MDMA Scrn (Ecstasy) Negative U Benzodiazepines Scrn Negative Urine Cocaine Screen Negative U Marijuana (THC) Screen Negative Ethyl Alcohol 06/18/19 04:15 WBC RBC Hgb Hct MCV MCH MCHC RDW Plt Count Neut % (Auto) Lymph % (Auto) [place] % (Auto) Eos % (Auto) Baso % (Auto) Neut # (Auto) Lymph # (Auto) [place] # (Auto) Eos # (Auto) Baso # (Auto) Sodium 141 Potassium 3.9 Chloride 110 H Carbon Dioxide 23 BUN 46 H Creatinine 1.90 H Estimated GFR 26.1 L BUN/Creatinine Ratio 24.2 H Glucose 105 Calcium 7.8 L Total Bilirubin AST ALT Alkaline Phosphatase Total Protein Albumin Globulin Albumin/Globulin Ratio TSH Urine Color Urine Appearance Urine pH Ur Specific [place] Urine Protein Urine Glucose (UA) Urine Ketones Urine Occult Blood Urine Nitrate Urine Bilirubin Urine Urobilinogen Ur Leukocyte Esterase Urine RBC Urine WBC Urine Bacteria Ur Culture Indicated? U Opiates 300ng/mL cut Ur Oxycodone Screen Urine Methadone Screen Ur Barbiturates Screen U Tricyclic Antidepress Ur Phencyclidine Scrn Ur Amphetamines Screen U Methamphetamines Scrn Ur MDMA Scrn (Ecstasy) U Benzodiazepines Scrn Urine Cocaine Screen U Marijuana (THC) Screen Ethyl Alcohol Assessment & Plan Assessment & Plan narrative: Janett Downs will be placed into observation to further treat and assess her acute kidney injury. 1. Acute kidney injury Continue IV hydration w/normal saline at 150 ml/hour Reassess bmp X at 1600. 2. Bipolar/depression I have ordered an PURIFICATION DIRECTOR consult to assess need for transfer to an inpatient psychiatric facility once medically cleared FEN: IV NS at 150 ml/hour, regular diet, chemistries at 1600 and in the am Patient is placed into observation as her stay is not likely to exceed 2 midnights. VTE Prophylaxis: Bilateral SCDs. If she has continued hyperactivity, these may be removed Medications reconciled: N/A Disposition: Transfer to inpatient psychiatric facility when medically stable and cleared. Code Status: Full Code
[2019-06-18 06:26] LABS: Phosphorous 5.9 mg/dL (2.8-4.1)
[2019-06-18] MEDS: SODIUM CHLORIDE 0.9% 1,000 ML 150 ML IV ×3 (07:21→21:07)
--- NOTE | 2019-06-18 08:18 | PC.NURSE ---
0730- Bedside shift report done. Per report, pt just fell asleep. Allowing rest period and will awaken for breakfast and AM care.
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
--- NOTE | 2019-06-18 10:46 | PM.EVENT ---
Event Note Date Patient Seen: 06/18/19 Event Note: Patient is a 73-year-old female with a history of bipolar affective disorder and depression who was admitted to the hospital for suicide ideation. Patient was found to have acute kidney injury. She is receiving IV hydration with improvement of renal function. Patient is still quite tearful and tangential. She is awaiting a psychiatric transfer once she is medically cleared. Will obtain a repeat basic metabolic panel this afternoon. Will adjust IV fluids accordingly. In addition will consult psychiatry for inpatient evaluation as well.
[2019-06-18] MEDS: ACETAMINOPHEN 325 MG TABLET 650 MG PO ×2 (11:50→18:46)
[2019-06-18] MEDS: NICOTINE 21 MG PATCH TOP (14:35)
[2019-06-18 16:18] LABS: BUN Creatinine Ratio 27.3 (6-22); Blood Urea Nitrogen 30 mg/dL (7-17); Carbon Dioxide 22 mmol/L (22-32); Chloride 112 mmol/L (98-107); Glucose 135 mg/dL (80-110); HEMOLYSIS < 15 (0-50); Potassium 3.7 mmol/L (3.4-5.1); Sodium 140 mmol/L (137-145)
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
[2019-06-18 16:58] LABS: Clostridium Difficile Tox PCR Negative for C. diff
[2019-06-18] MEDS: QUETIAPINE 25 MG TABLET 50 MG PO (18:51)
--- NOTE | 2019-06-18 21:04 | PC.NURSE ---
Evening Shift Note: Pt initially with labile mood, pressured speech, tearful, fearful. Pt discusses current life stressors, including her living situation with her ex- who she describes as controlling and states that she is ready for inpatient mental health treatment. Pt does not specifically endorse SI but states that she could just run off a roma, while crying and wringing hands. Pt slept on and off this shift, but awakened at ~1840 stating that she was feeling anxious and lonely and requested medication to help her feel less anxious. Pt also stated that she had a head-ache 5/10. Given tylenol and Dr. Bond contacted. Received verbal order to give 2100 dose of quetiapine. Pt with anxiety lessened, speech pattern less pressured and mood less labile. Pt is not drowsy, is alert and oriented and able to converse without becoming tearful. Pt is also now requesting sleep aid. JENNIFER Nguyen notified, no orders received at this time. Pt with 1:1 observation at all times. Call light in reach. Bed alarm on and functioning. Will continue to monitor, notify MD with changes.
[2019-06-19] VITALS (10 sets, daily range): BP systolic 128–154; BP diastolic 76–113; PULSE 71–94; RESP 16–22; TEMP 36.5–37.2; O2SAT 96–99; BMI 17.2
[2019-06-19] MEDS: SODIUM CHLORIDE 0.9% 1,000 ML 150 ML IV (03:15)
[2019-06-19 05:19] LABS: Alanine Aminotransferase 18 IU/L (<35); Albumin Globulin Ratio 1.3 (1.0-2.8); Alkaline Phosphatase 47 U/L (38-126); Aspartate Aminotransferase 35 IU/L (14-36); BUN Creatinine Ratio 21.3 (6-22); Bilirubin Total 0.4 mg/dL (0.2-1.3); Blood Urea Nitrogen 17 mg/dL (7-17); Calcium 7.5 mg/dL (8.4-10.2); Carbon Dioxide 23 mmol/L (22-32); Chloride 116 mmol/L (98-107); Estimated Glomerular Filt Rate > 60.0 mL/min (>60); Globulin 2.4 g/dL (1.7-4.1); Glucose 98 mg/dL (80-110); HEMOLYSIS < 15 (0-50); Potassium 4.2 mmol/L (3.4-5.1); Sodium 141 mmol/L (137-145); Total Protein 5.4 g/dL (6.3-8.2)
[2019-06-19 05:21] LABS: Add Manual Diff / Slide Review NO; Basophils Absolute Auto 0 /uL (0-100); Basophils Percent Auto 0.7 % (0-2); Eosinophils Absolute Auto 200 /uL (0-450); Eosinophils Percent Auto 5.1 % (2-4); Hematocrit 32.1 % (36-46); Hemoglobin 10.9 g/dL (12.0-16.0); Lymphocytes Absolute Auto 2000 /uL (1100-4500); Lymphocytes Percent Auto 41.3 % (25-40); Mean Corpuscular HGB Conc 34.1 % (30-36); Mean Corpuscular Hemoglobin 32.9 PG (26-34); Mean Corpuscular Volume 96.4 fL (80-100); Monocytes Absolute Auto 400 /uL (0-900); Monocytes Percent Auto 8.7 % (3-14); Neutrophils Absolute Auto 2100 /uL (1500-7000); Neutrophils Percent Auto 44.2 % (50-75); Platelet Count 175 X10^3/uL (150-400); Red Blood Cell Count 3.33 X10^6/uL (4.0-5.2); Red Cell Distribution Width 14.7 % (11.6-14.8); White Blood Cell Count 4.8 X10^3/uL (4.5-11.0)
--- NOTE | 2019-06-19 06:26 | PC.NURSE ---
Ecommerce Marketing Manager Note-Patient slept all through night, constant observation of staff. 1:1 sitter. Oriented x2 when awake, calm and cooperative, still impulsive and requires SBA to BR. Says not now when questioned about current suicide ideation.
[2019-06-19] MEDS: NICOTINE 21 MG PATCH TOP ×2 (09:15→17:09)
[2019-06-19] MEDS: ACETAMINOPHEN 325 MG TABLET 650 MG PO ×2 (09:15→16:47)
--- NOTE | 2019-06-19 09:21 | PC.NURSE ---
PTis sitting in bed with safety breakfast tray in front while watching TV. Pt is a little fidgety but calm.
--- NOTE | 2019-06-19 09:41 | PC.NURSE ---
Addendum entered by Edil Hutchison R.N. 06/19/19 14:51: Pt has been intermittently crying throughout shift; however, less so than yesterday. Dr. Bond rounded at lunchtime. Pt denied SI at that time. She has been cooperative but impulsive and does get up without using call light or asking for assistance. Her gait is fast but steady. She is becoming increasingly anxious regarding d/c plan, but anxiety is amenable to distraction/redirection. Placed call to DESK ATTENDANT and left message x2 to return phone call. Sitter at bedside for safety. Addendum entered by Edil Hutchison R.N. 06/19/19 10:23: Assisted pt to BR to void. Pt urinating clear, yellow urine without difficulty. Assisted to sink for hand hygiene and set up toothbrush and toothpaste. Pt looked at self in mirror and became distraught. Ran back to bed crying. I don't even look like myself. I look terrible. Offered shower, assistance with hair washing, and oral hygiene. Pt remains tearful and declines hygiene care at this time. Just give me some time. Emotional support provided. Rechecked BP after IVFs turned off for 1 hour. Improved from 157/105 to 141/92. Bed alarm on. Sitter outside room. Original Note: Pt woke at 0900 and reports needing to use the BR. SBA to BR. Pt is ambulating with steady gait. Her thought process remains somewhat disorganized but is much less emotionally labile and tearful compared to this RNs 06/18 assessment. She is cooperative with care. She reports decreased anxiety and feels she may be a little improved with a full night of rest. I am still really depressed. She expresses some hopelessness and fear r/t her living situation. Provided emotional support and reviewed plan of care. 1:1 sitter for safety.
--- NOTE | 2019-06-19 10:16 | PC.NURSE ---
Addendum entered by Tank Taveras CNA 06/19/19 10:23: Pt still having thoughts of harming herself. Original Note: Pt started crying when RN assisted her to the restroom. Pt putting her hands on face and getting a little agitated. RN offered shower but Pt reused and said later. Pt is not calm in room watching TV. RN checking BP on R Arm 141/92
--- NOTE | 2019-06-19 10:51 | P.PN_ITS ---
Subjective Subjective Date Patient Seen: 06/19/19 Interval history: The patient is a 73-year-old female who was admitted to the hospital for depression and suicidal ideation. She received 1 dose of Seroquel at 50 mg and slept the entire night. The patient was well overnight but this morning became tearful and somewhat depressed again. She is quite tearful during our conversation. She does report that she has been ?healthy. She also states she has no place to go home to. Exam Vital Signs (past 8 hours): - 06/19/19 04:44 06/19/19 09:00 06/19/19 10:21 Temperature 97.7 F 97.9 F Pulse Rate 71 85 Respiratory Rate 18 16 Blood Pressure 128/84 154/105 H 141/92 H Pulse Oximetry 96 96 Oxygen Delivery Method Room Air Oxygen Flow Rate 0 Narrative Exam Narrative: Pleasant female resting comfortably in no obvious distress Lungs: Clear to auscultation Cardiac exam: Regular rate and rhythm normal S1-S2 Abdomen: Soft nontender nondistended Extremities: No edema Objective Labs Result Diagrams: 06/19/19 04:35 06/19/19 04:35 Labs: Laboratory Results - last 24 hr 06/18/19 06/18/19 06/19/19 15:45 16:00 04:35 WBC 4.8 RBC 3.33 L Hgb 10.9 L Hct 32.1 L MCV 96.4 MCH 32.9 MCHC 34.1 RDW 14.7 Plt Count 175 Neut % (Auto) 44.2 L D Lymph % (Auto) 41.3 H [place] % (Auto) 8.7 Eos % (Auto) 5.1 H Baso % (Auto) 0.7 Neut # (Auto) 2100 Lymph # (Auto) 2000 [place] # (Auto) 400 Eos # (Auto) 200 Baso # (Auto) 0 Sodium 140 Potassium 3.7 Chloride 112 H Carbon Dioxide 22 BUN 30 H Creatinine 1.10 H Estimated GFR 49.0 L BUN/Creatinine Ratio 27.3 H Glucose 135 H Calcium 8.0 L Total Bilirubin AST ALT Alkaline Phosphatase Total Protein Albumin Globulin Albumin/Globulin Ratio C. difficile Tox (PCR) Negative for c. diff 06/19/19 04:35 WBC RBC Hgb Hct MCV MCH MCHC RDW Plt Count Neut % (Auto) Lymph % (Auto) [place] % (Auto) Eos % (Auto) Baso % (Auto) Neut # (Auto) Lymph # (Auto) [place] # (Auto) Eos # (Auto) Baso # (Auto) Sodium 141 Potassium 4.2 Chloride 116 H Carbon Dioxide 23 BUN 17 Creatinine 0.80 Estimated GFR > 60.0 BUN/Creatinine Ratio 21.3 Glucose 98 Calcium 7.5 L Total Bilirubin 0.4 AST 35 ALT 18 Alkaline Phosphatase 47 Total Protein 5.4 L Albumin 3.0 L Globulin 2.4 Albumin/Globulin Ratio 1.3 C. difficile Tox (PCR) Assessment & Plan Assessment & Plan narrative: Impression 1. 73-year-old female admitted to the hospital for suicidal ideation with longstanding depression, patient has a history of bipolar affective disorder. She received 1 dose of Seroquel last night and was able to sleep quite well overnight. Remains to be seen whether the patient will require inpatient psychiatric stabilization or whether she can be discharged home for outpatient psych follow-up. Appreciate Dr. read evaluation to help us differentiate the best disposition for her. 2. Acute renal failure present on admission, likely related to previously renal azotemia from volume depletion. Patient's creatinine has normalized 2.0 8. IV fluids will be discontinued. 3. Hypertension suspect situational anxiety. Will continue to monitor her blood pressure here in the hospital 4. Substance abuse, methamphetamine. His Quality VTE Deep Vein Thrombosis/Pulmonary Embolism Present on Admission: No
--- NOTE | 2019-06-19 12:56 | PM.CN ---
History of Present Illness Consult details Date Patient Seen: 06/19/19 Time Patient Seen: 11:45 Chief complaint: DEPRESSION Reason for consult: Pt with hx of bipolar depression admitted yesterday with SI. Requesting provider: Maricarmen Bond Narrative: CHIEF COMPLAINT: ?I'm really depressed and I don't know what to do.? HISTORY OF PRESENT ILLNESS: I saw the patient again today after she spent overnight in the hospital and was given fluids and 2 doses of quetiapine. She is much more cogent, clear and able to provide more coherent history and discussion. She is still somewhat vague about some of the details of her history and cannot provide any list of affective medications that have been useful in the past. However, she is able to deny any suicidal or homicidal ideation, intent, or plan. The patient continues to complain of significant symptoms of depression including depressed mood, anhedonia, poor concentration, decreased appetite and weight loss, psychomotor agitation, decreased energy, negative self-esteem and negative self talk, in addition to her recent history of suicidal ideation. Although not currently suicidal, she continues to have significant symptoms and clearly displays difficulty focusing and concentrating, demonstrating symptoms that need to be addressed and treated. She is willing to go into the hospital voluntarily in order to get started and stabilized on medications. She denies any psychotic symptoms including hallucinations delusions ideas of reference or thought disorder. The patient does admit to feeling extremely anxious anxious and apprehensive when pondering returning to her ex- but otherwise denies any panic disorder or generalized anxiety. She denies any homicidal ideation intent or plan. She denies any symptoms of PTSD. PAST PSYCHIATRIC HISTORY: - Diagnoses: The patient reports having history of bipolar disorder and being treated at various psychiatric facilities in the region but is extremely unclear about specifics regarding her treatment. - Inpatient: Patient does have prior inpatient admissions, but again is very unclear about this. - Outpatient: The patient reports prior episodes of outpatient psychiatric treatment but has not been compliant. - Suicide Attempts: Describes numerous attempts at suicide in the past. These likely have resulted in some of her admissions, but again, she is very vague and unclear about this. PREVIOUS MEDICATION TRIALS: Patient may have been on lithium, Depakote, and antipsychotic medications but cannot name them. CURRENT PSYCHOTROPIC MEDICATIONS: Quetiapine 25-50 mg p.o. b.i.d. as needed agitation (only prescribed yesterday while in hospital) Meds Home Medications and Allergies Home Medications Medication Instructions Recorded Confirmed Type No Known Home Medications 02/17/19 06/18/19 History Allergies Allergy/AdvReac Type Severity Reaction Status Date / Time No Known Drug Allergies Allergy Verified 02/17/19 13:05 Review of Systems Review of Systems Narrative: All systems reviewed and are negative except as noted in the HPI. Psych per HPI. Exam Vital Signs (past 8 hours): - 06/19/19 09:00 06/19/19 10:21 06/19/19 12:40 Temperature 97.9 F 98.9 F Pulse Rate 85 88 Respiratory Rate 16 20 Blood Pressure 154/105 H 141/92 H 152/113 H Pulse Oximetry 96 97 Oxygen Delivery Method Room Air Oxygen Flow Rate 0 Narrative Exam Narrative: MENTAL STATUS EXAMINATION: Appearance: The patient is a slender, somewhat disheveled, female dressed in hospital attire and seen sitting up in her hospital bed. Behavior: The patient is still moderately agitated and easily frustrated when any attempt is made to get her to be more specific about her answers. She frequently becomes tearful. Eye Contact: Eye contact is good. Speech: There is a mild speech impairment with some possible difficulty with her dentition but otherwise the patient speaks rapidly and is more coherent than when I saw her yesterday. Motor Movement: There is mild psychomotor agitation. Gait: Gait not tested Mood: Stated mood is, ?I'm really depressed and I don't know what I am going to do.? Affect: Affect is agitated, although lesss so today, very dysphoric, and congruent with content. Thought Process: Linear, logical and goal directed, much less circumstantial. Thought Content: There was no suicidal or homicidal ideation, intent, or plan nor was there any evidence of a formal thought or perceptual disturbance. Attention: Attentive to interview Orientation: Oriented to person, place, time, and circumstance. Memory: Intact for interview, not formally tested. Insight: Fair to Poor Judgement: Fair to Poor Objective Labs Result Diagrams: 06/19/19 04:35 06/19/19 04:35 Labs: Laboratory Results - last 24 hr 06/18/19 06/18/19 06/19/19 15:45 16:00 04:35 WBC 4.8 RBC 3.33 L Hgb 10.9 L Hct 32.1 L MCV 96.4 MCH 32.9 MCHC 34.1 RDW 14.7 Plt Count 175 Neut % (Auto) 44.2 L D Lymph % (Auto) 41.3 H [place] % (Auto) 8.7 Eos % (Auto) 5.1 H Baso % (Auto) 0.7 Neut # (Auto) 2100 Lymph # (Auto) 2000 [place] # (Auto) 400 Eos # (Auto) 200 Baso # (Auto) 0 Sodium 140 Potassium 3.7 Chloride 112 H Carbon Dioxide 22 BUN 30 H Creatinine 1.10 H Estimated GFR 49.0 L BUN/Creatinine Ratio 27.3 H Glucose 135 H Calcium 8.0 L Total Bilirubin AST ALT Alkaline Phosphatase Total Protein Albumin Globulin Albumin/Globulin Ratio C. difficile Tox (PCR) Negative for c. diff 06/19/19 04:35 WBC RBC Hgb Hct MCV MCH MCHC RDW Plt Count Neut % (Auto) Lymph % (Auto) [place] % (Auto) Eos % (Auto) Baso % (Auto) Neut # (Auto) Lymph # (Auto) [place] # (Auto) Eos # (Auto) Baso # (Auto) Sodium 141 Potassium 4.2 Chloride 116 H Carbon Dioxide 23 BUN 17 Creatinine 0.80 Estimated GFR > 60.0 BUN/Creatinine Ratio 21.3 Glucose 98 Calcium 7.5 L Total Bilirubin 0.4 AST 35 ALT 18 Alkaline Phosphatase 47 Total Protein 5.4 L Albumin 3.0 L Globulin 2.4 Albumin/Globulin Ratio 1.3 C. difficile Tox (PCR) Assessment & Plan Assessment and plan (1) Bipolar disorder: Current visit: Yes Status: Acute (2) Manic episode: Current visit: Yes Status: Acute (3) Acute kidney injury: Current visit: Yes Status: Acute (4) Methamphetamine abuse, episodic: Current visit: Yes Status: Acute (5) Depression with suicidal ideation: Current visit: Yes Status: Acute Assessment & Plan narrative: ASSESSMENT: This is a 73-year-old female with a long history of affective disorder most likely bipolar disorder. Patient currently appears to be in a depressed and agitated state. With increased fluids, her apparent difficulty with kidney function appears to be stable. The patient has responded well to relatively low doses of quetiapine to help agitation, but she still remains significantly depressed and at a low level of functioning. Given her history of significant mental illness and current ongoing and severe symptoms of depression in the context of a history of bipolar disorder I believe she requires inpatient admission for further evaluation and stabilization on medications. The patient is amenable to this and voluntary. SAFETY ASSESSMENT: - Risk factors: Symptoms of serious mental illness, recent history of suicidal ideation - Protective factors: None known at this time - Warning signs: Recent history of agitation and suicidal ideation - Overall risk assessment: Based on the presence of no current suicidal desire; no current suicidal intent; no real readily available means; and minimal multiple buffers against suicide, overall level of risk is judged to be moderately low. DIAGNOSES: Bipolar disorder, depressed Amphetamine intoxication, resolving PLAN: TREATMENT GOALS: - Improve agitation -decrease depression -placement in inpatient hospitalization COORDINATION OF CARE: Recommend patient be transferred to inpatient psychiatric hospitalization DIAGNOSTICS: Imaging: None at this time. Labs: No new labs required Psych testing: None. MEDICATIONS: Continue quetiapine 25-50 mg p.o. b.i.d. as needed agitation, adjust as needed up to 100 mg per day FOLLOW UP: -will continue to follow with you while she is in our hospital. - Refer for inpatient psychiatric hospitalization. Time Spent With Patient Time with patient: Greater than 35 minutes
--- NOTE | 2019-06-19 15:11 | DIET.PN ---
Dietary Progress Note Assessment: 73y F admitted for suicidal ideation and depression presenting with RADHA and methamphetamine positive UA, dx c bipolar disorder off medications for 3y. Per [facility] records, pt has lost 9.4% of body weight in 4 months unintentionally. Pt's POs while in the hospital are 100%. Pt currently living c ex-spouse, does not feel she has home to go to, at risk for food insecurity. HT: 170.1cm WT: 49.8kg UBW: 55kg (-9.4% in 4mo, severe) BMI: 17.2 (severe for age) Labs:UA positive methamphetamine MNA:not calculated Pedro:20 Nutrition Diagnosis: Acute on Chronic Severe PCM r/t physical and psychological causes aeb pt bipolar off meds for 3y, methamphetamine positive in UA, 9.4% wt loss in 4 mo (severe), BMI 17.2 (severe for age) Interventions: 1. Recc ONS if pt POs <75% Diet Order:General EER:1600kcal, 64g PRO (1.3g/kg per malnutrition), 1.6L fluids Monitoring/Evaluations: if pt's POs fall <75% start ONS to support PCM
--- NOTE | 2019-06-19 16:08 | CM.DPNOTE ---
Addendum entered by Celia Caldwell R.N. 06/19/19 16:21: Sent updated notes to [facility] austin - mark the 06/19 updated lab results, Dr. Fair, and DRY KILN FEEDER had not been sent. Original Note: DRY KILN FEEDER Assessment: SEE DRY KILN FEEDER/SS asessment completed on 06-19-2019. Current recommendationj from psychiatrist Dr. Bond is for patient to be placed inpatient voluntarily for psychiatric management. DRY KILN FEEDER attempted placement at [facility] today. Both facilities turned patient down due to new acute kidney injury. However, Dr. Bond reports that patient is medically stable. [facility] requesting updated be faxed in AM for review. P: Pending. Patient does not provide anyone with permission to speak with contact Ephraim. DRY KILN FEEDER to f/u in AM on 06-19-19. ICU/RN updated. JABIER Miller
--- NOTE | 2019-06-19 16:30 | PC.NURSE ---
Pt cooperative and kind upon first assessment. Assessment wnl. Pt tearyt at times, but smiling and answering questions appropriately. Prayed with patient for comfort per request. When asked if Case Management could call her ex regarding a plan for discharge, pt became extremely upset, shaking, grabbing her head and sobbing. Expressed concern that he will only get mad to be involved at all and does not want to be contacted regarding her care. She expressed concern that all of her belongings would be thrown on the street if he was uspet by calls from hospital members. Able to calm patient with deep breathing, reassuring her we would not call her ex and that she was safe in the hospital for this evening. Pt verbalized understanding and appears calm at this point. Pt remains on 1:1. Confirmed verbal contract wtih the nurse that she will harm herself not has any intention to.
[2019-06-19] MEDS: LOPERAMIDE 2 MG/10 ML UDC PO (16:47)
[2019-06-19] MEDS: QUETIAPINE 25 MG TABLET 50 MG PO (19:41)
[2019-06-20 01:15] VITALS: BP 121/84; PULSE 84; RESP 13; TEMP 36.7; O2SAT 97
[2019-06-20 03:33] VITALS: O2SAT 97
[2019-06-20 08:04] VITALS: BP 145/94; PULSE 90; RESP 16; TEMP 36.6; O2SAT 97
[2019-06-20] MEDS: NICOTINE 21 MG PATCH TOP (08:38)
--- NOTE | 2019-06-20 09:16 | PC.NURSE ---
Pt is resting in bed after eating bkfst. Denies pain, nausea, shortness of breath or distress at this time. Pt states she is feeling depressed and warns that she may cry periodically today. Denies suicidal ideation at this time. Pt is conversant and animated-talking about being from [place] originally and moving from place to place throughout her life and prior jobs as well as her ex-husbands job at [employer]. Pt gets up from bed without using call light despite reminders but seems steady on her feet from bathroom to sink to bed. Pt ate 100% of her bkfst and denies needs at this time. Pt stated she was unable to read the menu due to not having her glasses with her so assisted her with ordering lunch and obtained a lender pair of readers for her use during this stay. Bed alarm on for safety. Pt in clear view of 1:1 RN.
[2019-06-20] MEDS: ACETAMINOPHEN 325 MG TABLET 650 MG PO ×2 (10:29→16:09)
--- NOTE | 2019-06-20 11:21 | P.PN_ITS ---
Subjective Subjective Date Patient Seen: 06/20/19 Interval history: Patient is a 73-year-old female with a history of depression and bipolar affective disorder who was admitted to the hospital for suicidal ideation. Patient is still somewhat depressed. However she has been able to sleep at night. Mood during the day appears a bit better although she remains tearful. When the patient presented to the hospital she had acute renal failure. However she was given IV hydration with complete resolution of her renal insufficiency. Currently we are awaiting transfer to an inpatient psychiatric facility for ongoing care. Exam Vital Signs (past 8 hours): - 06/20/19 03:33 06/20/19 08:04 Temperature 97.9 F Pulse Rate 90 Respiratory Rate 16 Blood Pressure 145/94 H Pulse Oximetry 97 97 Oxygen Delivery Method Room Air Oxygen Flow Rate 0 Narrative Exam Narrative: Depressed female somewhat tearful Lungs: Clear to auscultation Cardiac exam: Regular rate rhythm normal S1-S2 Abdomen: Soft nontender nondistended Extremities: No edema Objective Labs Result Diagrams: 06/19/19 04:35 06/19/19 04:35 Assessment & Plan Assessment & Plan narrative: Impression 1. Acute renal failure, present on admi ssion, likely pre renal azotemia now resolved 2. Depression with suicidal ideation 3. Severe protein calorie malnutrition Plan await transfer to an inpatient psychiatric facility. Appreciate Dr. lillian amador consultation. Quality VTE Deep Vein Thrombosis/Pulmonary Embolism Present on Admission: No
[2019-06-20 11:54] VITALS: BP 147/101; PULSE 91; RESP 16; TEMP 36.1; O2SAT 97
[2019-06-20 15:30] VITALS: BP 152/100; PULSE 88; RESP 18; TEMP 36.9; O2SAT 98
[2019-06-20 15:52] VITALS: BP 153/96
--- NOTE | 2019-06-20 15:55 | P.DS_ITS ---
History of Present Illness History of Present Illness Date Patient Seen: 06/20/19 Chief complaint: DEPRESSION Narrative: Janett Downs is a 73 y.o. female with a history of depression and b ipolar disorder presented to the ED with suicidal ideation. She was deemed to be appropriate for transfer to a psychiatric facility but due to a new acute kidney injury, was not able to be medically cleared for transfer. Patient is a difficult historian and is quite tangential in her answers. She does indicate she thought she had the flu and was nauseous. Stated she normally drinks a lot of water but has not been recently. She denies fever, chills or sweats, chest pain, shortness of breath, she did state that she is urinating more than usual, denies muscle aches and pains, or skin rashes or lesions. The patient has had a lifelong history of depression, states she has tried medications and has not been taking anything for several years. She states she is very active and that depression medications make her feel poorly. She does admit to 4 suicide attempts. Currently she moved in with her ex-, but feels that she will not be able to return to him when discharged. She did admit to using methamphetamine approximately one week ago. She is not followed by a primary care provider, nor is she followed by psychiatry. She presented to the ED with a creatinine of 2.9 and with 3 liters of normal saline the ED was only able to decrease her creatinine to 1.9. Her baseline cr eatinine is 0.8. Renal ultrasound was performed in the ED, however the imaging report is not available as yet. Discharge Providers Provider Date of admission: 06/18/19 05:54 Discharge Date: 06/20/19 Consults: 06/17/19 21:59 Consult to [facility] - Traffic Clerk Stat Comment: rapid cycling bipolar, actively manic, w/SI [facility] Consult: Behavioral Health Assess 06/18/19 06:18 Consult to [facility] - Traffic Clerk Routine Comment: Bipolar, suicidal ideation Discharge provider: Maricarmen Bond MD Summary Hospital Course Discharge Diagnosis: 1. Acute renal failure, most likely related to pre renal azotemia from volume depletion and dehydration 2. Depression with suicidal ideation 3. Severe protein calorie malnutrition 4. Bipolar affective disorder Hospital Course: Patient was admitted to the hospital for suicidal ideation. She was found to have acute renal failure with a creatinine of 1.9. Patient received IV hydration with normalization of her creatinine 2.8. She remained quite depressed and very tearful. She was seen in consultation by our psychiatrist Dr. christianson who recommended initiation of Seroquel at 50 mg at night. The patient received the 50 mg of Seroquel was able to sleep however remained quite despondent and very depressed. It was his recommendation that the patient be transferred to an inpatient psych facility for ongoing psychiatric treatment. Patient was deemed to be medically appropriate for transfer. Bed was obtained at [facility] and she was transferred there for ongoing psychiatric care. Status at Discharge Cognitive/behavioral status at discharge: oriented Functional status at discharge: independent ambulation Overall status at discharge: patient is not back to baseline Time Spent with Patient Time spent: Less than 30 minutes Exam Vital Signs (past 8 hours): - 06/20/19 08:04 06/20/19 11:54 06/20/19 15:30 Temperature 97.9 F 97.0 F L 98.4 F Pulse Rate 90 91 H 88 Respiratory Rate 16 16 18 Blood Pressure 145/94 H 147/101 H 152/100 H Pulse Oximetry 97 97 98 06/20/19 15:52 Temperature Pulse Rate Respiratory Rate Blood Pressure 153/96 H Pulse Oximetry Oxygen Delivery Method Room Air Oxygen Flow Rate 0 Narrative Exam Narrative: Depressed female in no obvious distress Lungs: Clear to auscultation Cardiac exam: Regular rate and rhythm normal S1-S2 Abdomen: Soft nontender nondistended Extremities: No edema Objective ECG Impression: Sinus rhythm with suggestion of LVH, septal OH present age indeterminate Labs Result Diagrams: 06/19/19 04:35 06/19/19 04:35 Discharge Plan Discharge Plan Patient Disposition: Xfer Psychiatric Hosp Discharge comment: Discharge to [facility] Discharge orders & Medications Prescriptions: No Action No Known Home Medications RF: 0 Diet/Activity/Treatments Diet: Diet as Tolerated Liquid consistency: Normal/Thin Food texture: Regular Activity: As tolerated Quality VTE Deep Vein Thrombosis/Pulmonary Embolism Present on Admission: No
--- NOTE | 2019-06-20 17:24 | PC.NURSE ---
A&OX3. Pt agreed to transfer to behavioral health. pt was occasionally teary. Pt is independent. SBA. Report given to ALEXEI Nguyen. intake was also notified. pt put on her clothes, pockets were checked. belongings returned and gave it to transport rep.
--- NOTE | 2019-06-21 08:32 | CM.SWNOTE ---
Late Entry Efforts towards placement 06.20.19: Yesterday: Pt remained tearful, mood labile, but pleasant and cooperative throughout the day, indp w/ ADLs. Pt remained voluntary for inpt MH placement. Pl[facility] call to [facility] morning of 06.20.09. Had lengthy conversation w/both of these facilities, advocated on pt's behalf that she was medically cleared from the hospitalist's perspective, acute kidney had resolved; now awaiting MH placement. Further explained she remained a very good candidate for inpt MH/longer term medication stabilization, and group/counseling and resource development once ready for DC. [facility] refused pt for admission sating she has been denying suicidal ideation/plan and is not acute enough for our unit. [facility] agreed to re-review (or look for the first time? Intake rep stated she didn't have a referral packet). [facility] called back and explained the medical provider agreed to accept but she now needed to contact the psychiatrist. Mayes again from [facility] at approx 1630 that pt was accepted and by that time, pt had just been accepted at [facility]. Placed calls to [facility], Lyudmila and Kayla, faxed to [place] and they enevitably accepted pt for trasnfer last night. This CLINICAL CYTOGENETICIST SCIENTIST worked w/ evening nursing staff and warehouse receiver Petty to arrange transport and complete trnsf ppk to include the following information: [facility]: [address] [place] [address] Intake Rep Thaddeus Andrews# [phone] Bring to Main Entrance Accepting provider: Dr Varner Also provided nurse to nurse number for report to ALEXEI Caicedo. Pt remained agreeable to plan and remained quite tearful throughout the process. JABIER Hinojosa
== END 2019-06-20 17:15 | DRG 682 ==
LOC: ED 06-18 01:25 → ICU 06-18 10:12 → AC 06-18 10:16
PROVIDERS: Internal Medicine; Admitting Provider Nurse Practitioner Family; Emergency Provider Emergency Medicine; Visit Provider Nurse Practitioner Family
DX: N17.9 Acute kidney failure, unspecified (principal); E43 Unspecified severe protein-calorie malnutrition; F31.4 Bipolar disorder, current episode depressed, severe, without psychotic features; R45.851 Suicidal ideations; Z68.1 Body mass index [BMI] 19.9 or less, adult; F15.10 Other stimulant abuse, uncomplicated; F17.210 Nicotine dependence, cigarettes, uncomplicated
CPT/HCPCS: 36415; 76770; 80048; 80053; 80305; 80320; 81001; 82565; 84100; 84443; 85025; 87086; 87493; 87797; 90792; 93005; 96360; 96361; 99232; 99285; 99291; 99292

== ENCOUNTER 2019-07-14 19:34 | Emergency (ER) | payer MEDICARE, SELFPAY ==
[2019-06-18 06:47] VITALS: BMI 17.2
[2019-07-14 19:35] VITALS: BP 166/96; PULSE 79; RESP 20; TEMP 37.2; O2SAT 98; BMI 24.2
--- NOTE | 2019-07-14 20:17 | ED_ITS ---
HPI - Psych General Chief Complaint: Psychiatric Symptoms Stated Complaint: multiple complaints,out of meds Time Seen by Provider: 07/14/19 20:17 Source: patient Mode of arrival: Ambulatory Limitations: no limitations History of Present Illness HPI Narrative: The patient has a variety of complaints. She was recent hospitalized with depression and suicidal intention. She is supposed to be on Prozac. She has lost her prescription has been without medications for several days. With the current situation she has found herself homeless. She is stressed and anxious upon arrival. She complains of ear pain, and sore throat. She has a minimal nonproductive cough. She has no fever chills. She has no GI discomfort. She also complains of left great toe pain and discoloration. She stubbed her toe during the issues of 2 weeks ago. She is ambulatory, the toe remains sore. She is anxious and stressed. She denies alcohol or drug use. She denies suicidal ideation or plans. Related Data Previous Rx's Medication Instructions Recorded fluoxetine [Prozac] 20 mg PO DAILY #30 cap 07/15/19 Allergies Allergy/AdvReac Type Severity Reaction Status Date / Time No Known Drug Allergies Allergy Verified 07/14/19 19:45 Review of Systems Constitutional Constitutional: Reports as per HPI ENT Ears, Nose, Mouth, and Throat: Denies vertigo and Reports nasal discharge Comments: Bilateral ear pain. Sore throat. Cardiovascular Cardiovascular: Denies chest pain Respiratory Respiratory: Denies chest congestion and Denies cough Gastrointestinal Gastrointestinal: Denies abdominal pain, Denies nausea and Denies vomiting Genitourinary Genitourinary: Denies dysuria and Denies flank pain Comments: No urinary complaints Musculoskeletal Comments: Left great toe pain as described in HPI. Integumentary/Breasts Skin/Breast: Denies rash Neurologic Neurologic: Denies confusion and Denies vertigo Psychiatric Psychiatric: Denies confusion, Reports mood swings, Denies hallucinations, Denies homicidal ideation and Denies suicidal ideation Patient History Medical History Anxiety and depression (Chronic) Depression with anxiety (Chronic) Hepatitis B (Chronic) Pancreatitis (Resolved) Suicide attempt (Resolved) Suicide attempt (Resolved) Surgical History H/O: hysterectomy (Resolved) Hx of appendectomy (Acute) Hx of tonsillectomy (Acute) Family History Mother Cancer Father Alzheimer disease Social History household members: none Smoking Status: Current every day smoker Tobacco: How many years used: 15 alcohol intake: current substance use type: methamphetamine (History of meth use in last week. ) Smoking Status: Current every day smoker alcohol intake frequency: 0-2 drinks per day Alcohol type: beer Substance Use Type: marijuana and methamphetamine Exam Initial Vital Signs Initial Vital Signs: Vital Signs Temperature 98.9 F 07/14/19 19:35 Pulse Rate 79 07/14/19 19:35 Respiratory Rate 20 07/14/19 19:35 Blood Pressure 166/96 H 07/14/19 19:35 Pulse Oximetry 98 07/14/19 19:35 Const General: cooperative, well developed and anxious Nutritional Appearance: well nourished [facility] Head: normocephalic and atraumatic Ears: hearing grossly normal bilaterally Nose: nares normal Face and sinus: normal facial exam and no sinus tenderness Mouth: oral mucosae normal Throat: posterior oropharynx normal Eyes General: appearance normal, both eyes and all related structures Conjunctivae: conjunctivae normal EOM: EOM intact bilaterally Neck Neck: No lymphadenopathy Resp Auscultation: clear to auscultation bilaterally Cardio Rate: regular rate Rhythm: regular rhythm Heart Sounds: S1 normal and S2 normal GI Palpation: soft Percussion: normal to percussion Auscultation: normal bowel sounds Back/Spine/Pelvis Back: No CVA tenderness Skin General: no rashes or lesions noted Neuro General: alert, oriented x3, gait normal and no focal motor deficits Speech: speech normal Extrem General: normal to inspection Other: Contusion to the left great toe. Normal range of motion at the MCP and IP joint. No deformity. Psych Appearance: disheveled Speech and Movement: agitated, pressured speech and restless Mood: anxious mood Affect: anxious affect Attitude: cooperative Thought Process: normal Thought Content: no delusions, no hallucinations and suicidality Judgment: fair Course Course Course Narrative: The patient has a head cold, and a left toe contusion. She is anxious, she is stressed. I have started her back on Prozac, 1st dose given here in the ER. She was allowed to remain under observation, but will the discharge this morning. I have given the patient a Prozac prescription for 30 tablets. She is advised arrange follow-up with her regular doctor. Orders Ordered: Discontinued Medications Acetaminophen (Tylenol) 650 mg PO NOW ONE Stop: 07/15/19 00:53 Last Admin: 07/15/19 01:13 Dose: 650 mg Documented by: EARLINE Fluoxetine HCl (Prozac) 20 mg PO NOW ONE Stop: 07/14/19 22:10 Last Admin: 07/14/19 22:40 Dose: 20 mg Documented by: CHRISTINA Vital Signs Vital signs: Vital Signs - 8 hr 07/15/19 06:25 Temperature 98.3 F Pulse Rate 89 Respiratory Rate 16 Blood Pressure [Left Arm] 153/94 H Pulse Oximetry 99 Discharge Plan Departure Patient Disposition: Home Clinical Impression: Acute nasopharyngitis Depression Qualifiers: Depression Type: major depressive disorder Major depression recurrence: unspe cified whether recurrent Active/Remission status: remission status unspecified Qualified Code(s): F32.9 - Major depressive disorder, single episode, unspe cified Contusion of great toe Qualifiers: Encounter type: initial encounter Damage to nail status: without damage Laterality: left Qualified Code(s): S90.112A - Contusion of left great toe without damage to nail, initial encounter Discharge Date/Time: 07/15/19 06:40 Instructions: Depression, Common Cold Activity Restrictions/Additional Instructions: Resume Prozac 1 tab a daily as prescribed. Arrange follow-up with your own physician. Take Tylenol for body aches and headache. Be sure you rest and drink plenty of water. Return the ER as needed. Prescriptions: New fluoxetine [Prozac] 20 mg capsule 20 mg PO DAILY Qty: 30 RF: 0
[2019-07-14] MEDS: FLUoxetine 20 MG CAPSULE PO (22:40)
[2019-07-14 22:52] VITALS: BP 176/110; PULSE 94; RESP 18; O2SAT 97
[2019-07-15] MEDS: ACETAMINOPHEN 325 MG TABLET 650 MG PO (01:13)
[2019-07-15 06:25] VITALS: BP 153/94; PULSE 89; RESP 16; TEMP 36.8; O2SAT 99
== END 2019-07-15 06:40 | disposition home or self-care (01) ==
PROVIDERS: Emergency Provider Emergency Medicine
DX: J00 Acute nasopharyngitis [common cold] (principal); F32.9 Major depressive disorder, single episode, unspecified; S90.112A Contusion of left great toe without damage to nail, initial encounter
CPT/HCPCS: 99283

== ENCOUNTER 2019-09-20 15:05 | Emergency (ER) | payer MEDICARE, SELFPAY ==
[2019-06-18 06:47] VITALS: BMI 17.2
[2019-09-20 15:13] VITALS: PULSE 85; RESP 20; O2SAT 98; BMI 21.7
[2019-09-20] MEDS: ACETAMINOPHEN 325 MG TABLET 650 MG PO (17:15)
[2019-09-20] MEDS: IBUPROFEN 400 MG TABLET PO (17:15)
[2019-09-20] MEDS: hydrOXYzine pamoate 25 MG CAPSULE PO (17:16)
[2019-09-20 17:48] VITALS: BP 158/94; PULSE 73; RESP 20; O2SAT 99
[2019-09-20 18:32] LABS: RBC Urine 0-1/HPF (0-5/HPF)
[2019-09-20 18:33] LABS: Bacteria Urine Occasional (0-1); Culture Indicated Urine Specimen Cultured; Squamous Epithelial Cell Urine 0-1 /HPF (0-5/HPF); Transitional Epi Cells Urine 1-5/HPF (0-5/HPF); WBC Urine 10-30/HPF (0-5/HPF)
--- NOTE | 2019-09-20 18:41 | PC.NURSE ---
pt pacing inside and outside room. pt advised multiple times the need to stay inside room. pt appears anxious. flight of ideas and rapid manic speech. Lucien aware.
--- NOTE | 2019-09-20 18:47 | PC.NURSE ---
Pt pacing, difficult to redirect back in to room. Asking for scissor (which I denied as she could not tell me what they were for) but she did tell me she did not want harm herself what? you think I want to cut you? Ulisses. States she was leaving and walked out door. Did not want to wait for script nor abx. [place]/warm/dry. A/o x 4. No acute distress.
--- NOTE | 2019-09-21 00:25 | ED.ANXIETY ---
HPI - Anxiety <JENNIFER Moody - Last Filed: 09/21/19 00:49> General Chief Complaint: Anxiety Stated Complaint: stresses, back cramps Time Seen by Provider: 09/20/19 16:32 Source: patient Mode of arrival: Ambulatory Limitations: no limitations History of Present Illness HPI narrative: This is a 73-year-old female who has history of depression, anxiety, bipolar, manic episode, suicidal ideation who presents to ED with bilateral low back pain and burning sensation in her mouth. Patient reports she has been stressed with relationship problem and she contributes her back pain to this. Patient denies urinary symptoms, fever, chills, nausea or vomiting. Patient denies suicidal or homicidal ideation and states her living situation is safe. Patient states she is currently not taking any medications for depression or anxiety. She used to take Prozac but this medication has ran out and she stopped cold turkey 3 weeks ago. Patient is no longer have PCP/psychiatric. Patient drinks alcohol beverages and has not been taking recreational drugs at least a month. Related Data Previous Rx's Medication Instructions Recorded fluoxetine [Prozac] 20 mg PO DAILY #30 cap 07/15/19 hydroxyzine HCl 25 mg PO TID PRN #10 tab 09/20/19 nitrofurantoin macrocrystal 100 mg PO BID 5 Days #9 cap 09/20/19 Allergies Allergy/AdvReac Type Severity Reaction Status Date / Time No Known Drug Allergies Allergy Verified 09/20/19 15:13 Review of Systems <JENNIFER Moody - Last Filed: 09/21/19 00:49> Review of Systems Narrative: General: Denies fever, chills, fatigue, malaise, sweats. HEENT: Denies sinus pain, ear pain, sore throat, (+) burning mouth, difficulty swallowing, dizziness. Respiratory: Denies dyspnea, cough, wheezing, hemoptysis, sputum. Cardiovascular: Denies chest pain, palpitations, orthopnea, edema. Gastrointestinal: Denies nausea, vomiting, abdominal pain, diarrhea, constipation, melena. : Denies dysuria, frequency, incontinence, hematuria, urinary retention. Musculoskeletal: See HPI Skin: Denies rash, skin lesions, or other. Neurologic: Denies weakness, headache, numbness, change in speech, confusion, seizures, incoordination. Psychiatric: Stressed. Denies suicidal or homicidal ideation. 12-point review of systems is negative except for those stated above. Patient History <JENNIFER Moody - Last Filed: 09/21/19 00:49> Medical History Anxiety and depression (Chronic) Depression with anxiety (Chronic) Hepatitis B (Chronic) Pancreatitis (Resolved) Suicide attempt (Resolved) Suicide attempt (Resolved) Surgical History H/O: hysterectomy (Resolved) Hx of appendectomy (Acute) Hx of tonsillectomy (Acute) Family History Mother Cancer Father Alzheimer disease Social History household members: none Smoking Status: Current every day smoker Tobacco: How many years used: 15 alcohol intake: current substance use type: methamphetamine (History of meth use in last week. ) Smoking Status: Current every day smoker alcohol intake frequency: 0-2 drinks per day Alcohol type: beer Substance Use Type: marijuana and methamphetamine Exam <JENNIFER Moody - Last Filed: 09/21/19 00:49> Narrative Exam Narrative: General appearance: well developed, thin appearing, in moderate distress. Head: normocephalic, atraumatic, no scalp lesions, non-tender. ENT: Hearing grossly intact. Nose without bleeding, purulent discharge. Mucous membrane moist, no mucosal lesion. Throat without erythema, tonsillar hypertrophy or exudate. Uvula in midline, airway patent. Neck/Thyroid: neck supple, full range of motion, no visible masses or meningeal signs. No JVD, non-tender without lymphadenopathy. Skin: no suspicious rashes, lesions over visible areas. Warm and dry and appropriate color for ethnicity. Heart: no clubbing, no cyanosis, no edema. S1 and S2 normal. RRR w/o murmurs, clicks, or bruits. Lungs: Breathing even and unlabored. Hoarse voice. No stridor. No accessory muscles used. Able to speak in full sentences. Chest: normal shape and expansion. Abdomen: non-obese, non-distended. Neurologic: alert and oriented. Cognitive exam, STITCH CLEANER and PNS grossly intact on informal exam. Initial Vital Signs Initial Vital Signs: Vital Signs Pulse Rate 85 09/20/19 15:13 Respiratory Rate 20 09/20/19 15:13 Pulse Oximetry 98 09/20/19 15:13 Psych Appearance: well kempt Mental Status: mental status grossly normal Speech and Movement: restless Mood: anxious mood and manic mood Affect: anxious affect and irritable affect Attitude: cooperative Thought Process: flight of ideas Thought Content: no hallucinations, no homicidality and suicidality Judgment: limited Other: Speech in mildly loud voice with disorganized thought process moving her arms excessively during conversation with this clinician. At one point the patient was in tears discussing how stress for she is at this time. <Jenn Rivera MD - Last Filed: 09/21/19 07:33> Initial Vital Signs Initial Vital Signs: Vital Signs Pulse Rate 85 09/20/19 15:13 Respiratory Rate 20 09/20/19 15:13 Pulse Oximetry 98 09/20/19 15:13 Scores <JENNIFER Moody - Last Filed: 09/21/19 00:49> GCS [place] coma scale eye opening: Spontaneous Fausto coma scale verbal response: Orientated [place] coma scale motor response: Obey commands Fausto coma scale total score: 15 Course <JENNIFER Moody - Last Filed: 09/21/19 00:49> Orders Ordered: Discontinued Medications Acetaminophen (Tylenol) 650 mg PO NOW ONE Stop: 09/20/19 17:01 Last Admin: 09/20/19 17:15 Dose: 650 mg Documented by: ASMITA Hydroxyzine Pamoate (Vistaril) 25 mg PO NOW ONE Stop: 09/20/19 17:01 Last Admin: 09/20/19 17:16 Dose: 25 mg Documented by: ASMITA Ibuprofen (Advil) 400 mg PO NOW ONE Stop: 09/20/19 17:01 Last Admin: 09/20/19 17:15 Dose: 400 mg Documented by: ASMITA Nitrofurantoin Macrocrystals (Macrobid 100 Mg Capsule) 100 mg PO NOW ONE Stop: 09/20/19 18:45 Vital Signs Vital signs: Vital Signs - 8 hr 09/20/19 17:48 Pulse Rate 73 Respiratory Rate 20 Blood Pressure [Left Arm] 158/94 H Pulse Oximetry 99 <Jenn Rivera MD - Last Filed: 09/21/19 07:33> Orders Ordered: Discontinued Medications Acetaminophen (Tylenol) 650 mg PO NOW ONE Stop: 09/20/19 17:01 Last Admin: 09/20/19 17:15 Dose: 650 mg Documented by: ASMITA Hydroxyzine Pamoate (Vistaril) 25 mg PO NOW ONE Stop: 09/20/19 17:01 Last Admin: 09/20/19 17:16 Dose: 25 mg Documented by: ASMITA Ibuprofen (Advil) 400 mg PO NOW ONE Stop: 09/20/19 17:01 Last Admin: 09/20/19 17:15 Dose: 400 mg Documented by: ASMITA Nitrofurantoin Macrocrystals (Macrobid 100 Mg Capsule) 100 mg PO NOW ONE Stop: 09/20/19 18:45 Vital Signs Vital signs: Vital Signs - 8 hr 09/20/19 17:48 Pulse Rate 73 Respiratory Rate 20 Blood Pressure [Left Arm] 158/94 H Pulse Oximetry 99 MDM - Anxiety <JENNIFER Moody - Last Filed: 09/21/19 00:49> Differential Diagnosis Differential diagnosis: Likely acute anxiety and other (Musculoskeletal back pain, UTI, depression, bipolar in manic) Medical Records Attestation: I reviewed the patient's medical records. Lab Data Attestation: I reviewed the patient's lab results. Labs: Lab Results 09/20/19 Range/Units 17:40 Urine RBC 0-1/hpf (0-5/HPF) Urine WBC 10-30/hpf H (0-5/HPF) Ur Squamous Epith Cells 0-1 /hpf (0-5/HPF) Ur Transition Epith Cell 1-5/hpf (0-5/HPF) Urine Bacteria Occasional (0-1) (None) Ur Culture Indicated? Specimen cultured Urine Dip Bedside Urine Glucose Negative Bedside Urine Bilirubin + 1 Bedside Urine Ketone +/- 5 Urine Specific [place] 1.030 Bedside Urine Occult Blood - Negative Bedside Urine pH 5.5 Bedside Urine Protein + 30 Bedside Urine Urobilinogen +/- 1mg Bedside Urine Nitrite - Negative Bedside Urine Leukocytes ++ 125 Esterase MDM Narrative Medical decision making narrative: This is a 73 year female who presents to ED with back pain and increased situational stress. Patient denies trauma or injury to back or urinary symptoms. Patient states she has a history of suicidal ideation but she has not at this time or has homicidal ideation. Patient has relationship difficulty with her boyfriend at this time but reports she is safe at her living environment. Patient was medicated with Tylenol and ibuprofen while in ED for discomfort. Patient offered with hydroxyzine for anxiety. POC urine test shows small amount of ketones, +++ urine leukocytes esterase without nitrites. While waiting for urine micro test results, patient was re-evaluated. Patient appears to be calmer at this time and states her discomfort has improved. Patient states she would like to go home and requested to call her with the urine micro test result which I declined and advised to wait another 10 minutes or so. Urine test shows urine WBC of 10 to 30 and urine culture is pending. Patient was found to be pacing in and outside of patient's room by nursing staff. I found out later that she had left ED without prescription or discharge instruction and left Against Medical Advice. Patient's GCS was 15 and has a capacity to make patient is medical decision. Patient will be contacted with urine culture test result if patient requires antibiotic medication treatment which I had prescribed nitrofurantoin b.i.d. dose for 5 day course that patient left without the prescription. <Jenn Rivera MD - Last Filed: 09/21/19 07:33> Lab Data Labs: Lab Results 09/20/19 Range/Units 17:40 Urine RBC 0-1/hpf (0-5/HPF) Urine WBC 10-30/hpf H (0-5/HPF) Ur Squamous Epith Cells 0-1 /hpf (0-5/HPF) Ur Transition Epith Cell 1-5/hpf (0-5/HPF) Urine Bacteria Occasional (0-1) (None) Ur Culture Indicated? Specimen cultured Urine Dip Bedside Urine Glucose Negative Bedside Urine Bilirubin + 1 Bedside Urine Ketone +/- 5 Urine Specific [place] 1.030 Bedside Urine Occult Blood - Negative Bedside Urine pH 5.5 Bedside Urine Protein + 30 Bedside Urine Urobilinogen +/- 1mg Bedside Urine Nitrite - Negative Bedside Urine Leukocytes ++ 125 Esterase Discharge Plan Departure Patient Disposition: Home Clinical Impression: Situational stress UTI (urinary tract infection) Qualifiers: Urinary tract infection type: site unspecified Hematuria presence: without hematuria Qualified Code(s): N39.0 - Urinary tract infection, site not specified Depression Qualifiers: Depression Type: unspecified Qualified Code(s): F32.9 - Major depressive disorder, single episode, unspecified Discharge Date/Time: 09/20/19 18:48 Instructions: DI for Depression -- Adult, DI for Urinary Tract Infection (UTI), DI for Anxiety -- Adult Activity Restrictions/Additional Instructions: You have been diagnosed with [UTI, situational stress and history of depression not currently on medication. You were treated with nitrofurantoin 1st dose while in ED. your feeling improved with hydroxyzine while in ED.]. What to do: You were medicated with *Take your medications as directed. You can take [id number] Tylenol and or Motrin as needed for discomfort. Tylenol 650 mg up to 3 times a day as needed for pain. Ibuprofen 400 mg 3 times a day as needed for pain. Please take nitrofurantoin to treat UTI. You will receive a phone call if you need different antibiotic medication without urine culture test result. Hydroxyzine as needed for anxiety. This medication may cause drowsiness so please do not drink alcohol, operate heavy equipments. *Follow up with your primary care provider in 2-3 days, call for an appointment. Please call [facility] resource number to the [facility] primary care physician who can start you on routine medications for anxiety, depression, bipolar disease. Let them know you were seen in the ED and that we asked you to be seen in follow up. *Return to ED if you have any new, worsening, or concerning symptoms, such as [chest pain, breathing difficulty, unable to tolerate fluids, fever, feeling like fainting, suicidal or homicidal ideation.]. Prescriptions: New nitrofurantoin macrocrystal 100 mg capsule 100 mg PO BID 5 Days Qty: 9 RF: 0 hydroxyzine HCl 25 mg tablet 25 mg PO TID PRN (Reason: anxiety) Qty: 10 RF: 0 No Action fluoxetine [Prozac] 20 mg capsule 20 mg PO DAILY Qty: 30 RF: 0 Referrals: [facility] [Outside] <Jenn Rivera MD - Last Filed: 09/21/19 07:33> [facility] ED Attending Martha Attestation: I was immediately available in the department for consultation throughout this patient's visit. I agree with documentation as above. Jenn Rivera MD
== END 2019-09-20 18:48 | disposition home or self-care (01) ==
PROVIDERS: Emergency Provider Nurse Practitioner Family
DX: F43.9 Reaction to severe stress, unspecified (principal); N39.0 Urinary tract infection, site not specified; F32.9 Major depressive disorder, single episode, unspecified; F41.9 Anxiety disorder, unspecified
CPT/HCPCS: 81003; 81015; 87086; 99283

== ENCOUNTER 2020-05-30 19:36 | Emergency (ER) | payer MEDICARE, SELFPAY ==
[2019-06-18 06:47] VITALS: BMI 17.2
[2020-05-30 19:40] VITALS: BP 183/100; PULSE 89; RESP 20; TEMP 36.8; O2SAT 100; BMI 20.9
--- NOTE | 2020-05-30 20:12 | PC.NURSE ---
Patient brought to ED by police, voluntary admission. Patient affirms thoughts of SI but denies plan. Sitter outside patient room for continuous observation.
--- NOTE | 2020-05-30 20:15 | PC.NURSE ---
Pt continues to say I want to go home numerous times while crying on on bed.
[2020-05-30 20:16] LABS: Bacteria Urine None Seen; RBC Urine None Seen (0-5/HPF); UR Morphine/Opiate cutoff 300 Negative (Negative); Ur Creatinine Normal (Normal); Ur Specific Gravity Normal (Normal); Urine Amphetamines Negative (Negative); Urine Barbiturates Negative (Negative); Urine Benzodiazepines Negative (Negative); Urine Cocaine Negative (Negative); Urine MDMA Negative (Negative); Urine Methadone Negative (Negative); Urine Methamphetamines Negative (Negative); Urine Oxycodone Negative (Negative); Urine Phencyclidine Negative (Negative); Urine Tetrahydrocannabinol Negative (Negative); Urine Tricyclic Antidepressant Negative (Negative); Urine pH Normal (Normal); WBC Urine None Seen (0-5/HPF)
[2020-05-30 20:17] LABS: Amorphous Sediment Urine 2+; Culture Indicated Urine Cult Not Indicated
[2020-05-30 20:33] LABS: Add Manual Diff / Slide Review NO; Basophils Absolute Auto 100 /uL (0-100); Eosinophils Absolute Auto 200 /uL (0-450); Eosinophils Percent Auto 3.8 % (2-4); Hematocrit 36.8 % (36-46); Hemoglobin 11.8 g/dL (12.0-16.0); Lymphocytes Absolute Auto 2600 /uL (1100-4500); Lymphocytes Percent Auto 43.1 % (25-40); Mean Corpuscular HGB Conc 32.1 % (30-36); Mean Corpuscular Hemoglobin 28.6 PG (26-34); Mean Corpuscular Volume 89.2 fL (80-100); Monocytes Absolute Auto 500 /uL (0-900); Monocytes Percent Auto 7.8 % (3-14); Neutrophils Absolute Auto 2700 /uL (1500-7000); Neutrophils Percent Auto 44.3 % (50-75); Platelet Count 264 X10^3/uL (150-400); Red Blood Cell Count 4.12 X10^6/uL (4.0-5.2); Red Cell Distribution Width 16.5 % (11.6-14.8); White Blood Cell Count 6.1 X10^3/uL (4.5-11.0)
[2020-05-30 20:44] LABS: Alanine Aminotransferase 18 IU/L (<35); Albumin 4.3 g/dL (3.5-5.0); Albumin Globulin Ratio 1.3 (1.0-2.8); Alkaline Phosphatase 63 U/L (38-126); Aspartate Aminotransferase 27 IU/L (14-36); BUN Creatinine Ratio 16.2 (6-22); Bilirubin Total 0.3 mg/dL (0.2-1.3); Blood Urea Nitrogen 17 mg/dL (7-17); Calcium 8.7 mg/dL (8.4-10.2); Carbon Dioxide 27 mmol/L (22-32); Chloride 112 mmol/L (98-107); Estimated Glomerular Filt Rate 51.5 mL/min (>60); Ethanol (ETOH) 232 mg/dL; Globulin 3.4 g/dL (1.7-4.1); Glucose 101 mg/dL (80-110); HEMOLYSIS < 15 (0-50); Potassium 4.4 mmol/L (3.4-5.1); Sodium 146 mmol/L (137-145); Total Protein 7.7 g/dL (6.3-8.2)
--- NOTE | 2020-05-30 20:45 | PC.NURSE ---
Pt grabs coat and walks to doorway I'm going home. Pt is told to sit back down on bed. Doctor reassures pt that they need to stay.
[2020-05-30] MEDS: LORazepam 2 MG/ML INJ 1 MG IM (20:56)
[2020-05-30] MEDS: LIDO 1%/SOD BICARB 8.4% (10ML) 10 ML SYRINGE INJ (20:57)
--- NOTE | 2020-05-30 21:06 | ED.PSYCH ---
HPI - Psych <Sriram Jaimes, DO - Last Filed: 06/01/20 01:39> General Chief Complaint: Psychiatric Symptoms Stated Complaint: suicidal, wound on left pinky Time Seen by Provider: 05/30/20 19:41 Source: patient Mode of arrival: Ambulatory Limitations: no limitations History of Present Illness HPI Narrative: 74-year-old female smoker with history of bipolar presents under rather unclear circumstances. It sounds as if police were called to the residence, it is unclear to me at this point time who called them, and patient was brought here because she was tearful, crying, apparently depressed. She denies any suicidal or homicidal ideation and states that she lives in a safe environment. She does state that she has not taken her bipolar meds for quite some time as she has not found a local provider that she trusts. Later in the interview she does start crying and states that she just wants to but does not have a plan. Her reasoning is that she feels overwhelmed and frustrated but does not get into details. Her only complaint otherwise is of a laceration on her left hand that was accidental when she was reaching for an unknown object and had a caught on a sharp object. She denies any runny nose, sore throat or cough. She has no chest pain or shortness of breath. She has no nausea, vomiting or diarrhea. She was seen under rather similar circumstances in June and though she was deemed appropriate for psychiatric admission she had a newly discovered acute kidney injury which prompted admission to this facility. At that point time she had not been on medications for quite some time. During that admission she had consultation by Dr. christianson who recommended Seroquel 50 mg at night, there was an apparent referral to [facility] but it sounds as if she has not been going MD complaint: suicidal ideation Onset (ago): hour(s) Duration: intermittent History of same: Yes Relieving factors: none Exacerbating factors: alcohol Context: recent alcohol abuse and not taking psychiatric medications Associated psychiatric symptoms: depression and suicidal ideation Associated symptoms: denies other symptoms Treatments prior to arrival: none If self harm: admits thoughts of self harm Related Data Previous Rx's Medication Instructions Recorded fluoxetine [Prozac] 20 mg PO DAILY #30 cap 07/15/19 hydroxyzine HCl 25 mg PO TID PRN #10 tab 09/20/19 Allergies Allergy/AdvReac Type Severity Reaction Status Date / Time No Known Drug Allergies Allergy Verified 09/20/19 15:13 Review of Systems <Sriram Jaimes DO - Last Filed: 06/01/20 01:39> Constitutional Constitutional: Denies chills, Denies fatigue, Denies fever(s), Denies frequent falls, Denies lethargy and Denies weakness Eyes Eyes: Denies change in vision, Denies eye discharge, Denies irritation and Denies loss of vision ENT Ears, Nose, Mouth, and Throat: Denies change in voice, Denies dizziness, Denies neck pain, Denies sore throat and Denies throat swelling Cardiovascular Cardiovascular: Denies chest pain, Denies irregular heart rhythm, Denies lightheadedness, Denies palpitations, Denies dyspnea, Denies dyspnea on exertion and Denies orthopnea Respiratory Respiratory: Denies cough, Denies dyspnea, Denies dyspnea on exertion and Denies wheezing Gastrointestinal Gastrointestinal: Denies abdominal pain, Denies change in bowel habits, Denies diarrhea, Denies nausea and Denies vomiting Musculoskeletal Musculoskeletal: Denies neck pain and Denies numbness Integumentary/Breasts Skin/Breast: Denies pruritus, Denies erythema, Denies rash and Reports wounds Neurologic Neurologic: Reports behavioral changes, Denies confusion, Denies dizziness, Denies frequent falls, Denies loss of vision, Denies numbness and Denies weakness Psychiatric Psychiatric: Reports anxiety, Reports behavioral changes, Denies confusion, Reports depression, Denies homicidal ideation and Reports suicidal ideation Endocrine Endocrine: Denies fatigue, Denies flushing and Denies palpitations Hematologic/Lymphatic Hematologic/Lymphatic: Denies easy bruising Allergic/Immunologic Allergic/Immunologic: Denies urticaria, Denies throat swelling and Denies wheezing Patient History <Sriram Jaimes DO - Last Filed: 06/01/20 01:39> Medical History (Updated 05/31/20 @ 05:11 by Sriram Jaimes DO) Anxiety and depression Depression with anxiety Hepatitis B Pancreatitis Suicide attempt Suicide attempt Surgical History H/O: hysterectomy Hx of appendectomy Hx of tonsillectomy Family History Mother Cancer Father Alzheimer disease Social History household members: none Smoking Status: Current every day smoker Tobacco: How many years used: 15 alcohol intake: current substance use type: methamphetamine (History of meth use in last week. ) Smoking Status: Current every day smoker alcohol intake frequency: 3 or more drinks per day Alcohol type: beer Substance Use Type: does not use Exam <DO Vanita Miller Last Filed: 06/01/20 01:39> Narrative Exam Narrative: GENERAL: [74] year old patient appears stated age. Thin and distressed, tearful, motion all and crying HEAD: Atraumatic. Normocephalic. EYES: Pupils equal round and reactive. Extraocular motions intact. No scleral icterus. No injection or drainage. ENT: Poor dentition throughout, moist mucous membranes Nose without bleeding, purulent drainage. Throat without erythema, tonsillar hypertrophy or exudate. Airway patent. NECK: Trachea midline. Non tender CARDIOVASCULAR: Regular rate and rhythm without murmurs, gallops, or rubs. RESPIRATORY: Clear to auscultation. Breath sounds equal bilaterally. No wheezes, rales, or rhonchi. GASTROINTESTINAL: Abdomen soft, non-tender, nondistended. EXTREMITIES: 1 cm crescent-shaped laceration on dorsal surface of left thumb, minimal active bleeding, no foreign body noted, no contamination, deep structures intact. No edema or joint tenderness. BACK: Nontender without deformity or crepitance. No flank tenderness. NEURO: AOx3. SKIN: No rash or erythema of visible areas Initial Vital Signs Initial Vital Signs: Vital Signs Temperature 98.3 F 05/30/20 19:40 Pulse Rate 89 05/30/20 19:40 Respiratory Rate 20 05/30/20 19:40 Blood Pressure 183/100 H 05/30/20 19:40 Pulse Oximetry 100 05/30/20 19:40 <DO Vanita Chaves Last Filed: 05/31/20 18:41> Initial Vital Signs Initial Vital Signs: Vital Signs Temperature 98.3 F 05/30/20 19:40 Pulse Rate 89 05/30/20 19:40 Respiratory Rate 20 05/30/20 19:40 Blood Pressure 183/100 H 05/30/20 19:40 Pulse Oximetry 100 05/30/20 19:40 Procedures <DO Vanita Miller Last Filed: 06/01/20 01:39> Laceration Repair Laceration 1: Site: hand Side (If applicable): left Size (cm): 1 Description: flap and clean Depth: simple, single layer Local Anesthetic: lidocaine 1% Pre-repair: wound explored, irrigated extensively and deep structures intact Skin layer closed with: nylon Size (cm): 5-0 Number of sutures: 3 Course <Sriram Jaimes DO - Last Filed: 06/01/20 01:39> Orders Ordered: Discontinued Medications Acetaminophen (Acetaminophen 325 Mg Tablet) 975 mg PO NOW ONE Stop: 05/31/20 13:57 Last Admin: 05/31/20 14:02 Dose: 975 mg Documented by: JONATHAN Lidocaine/Sodium Bicarbonate (Lido 1%/Sod Bicarb 8.4% (10ml) 10 Ml Syringe) 10 ml INJ NOW ONE Stop: 05/30/20 20:54 Last Admin: 05/30/20 20:57 Dose: 10 ml Documented by: KASSANDRA Lorazepam (Lorazepam 2 Mg/Ml Inj) 1 mg IM NOW ONE Stop: 05/30/20 20:53 Last Admin: 05/30/20 20:56 Dose: 1 mg Documented by: KASSANDRA Lorazepam (Lorazepam 0.5 Mg Tablet) 1 mg PO NOW ONE Stop: 05/31/20 15:37 Last Admin: 05/31/20 15:42 Dose: 1 mg Documented by: JONATHAN Nicotine (Nicotine 21 Mg Patch) 21 mg TOP NOW ONE Stop: 05/30/20 21:07 Last Admin: 05/30/20 21:17 Dose: 21 mg Documented by: KASSANDRA Ondansetron HCl (Ondansetron 4 Mg Odt) 4 mg SL NOW ONE Stop: 05/31/20 00:39 Last Admin: 05/31/20 00:43 Dose: 4 mg Documented by: EARLINE Quetiapine Fumarate (Quetiapine 100 Mg Tablet) 50 mg PO BEDTIME [facility] Last Admin: 05/30/20 21:38 Dose: 50 mg Documented by: KASSANDRA Vital Signs Vital signs: Vital Signs - 8 hr 05/31/20 18:04 05/31/20 18:05 Pulse Rate 87 83 Blood Pressure 172/97 H Pulse Oximetry 97 98 <Deisy Drew DO - Last Filed: 05/31/20 18:41> Orders Ordered: Discontinued Medications Acetaminophen (Acetaminophen 325 Mg Tablet) 975 mg PO NOW ONE Stop: 05/31/20 13:57 Last Admin: 05/31/20 14:02 Dose: 975 mg Documented by: JONATHAN Lidocaine/Sodium Bicarbonate (Lido 1%/Sod Bicarb 8.4% (10ml) 10 Ml Syringe) 10 ml INJ NOW ONE Stop: 05/30/20 20:54 Last Admin: 05/30/20 20:57 Dose: 10 ml Documented by: KASSANDRA Lorazepam (Lorazepam 2 Mg/Ml Inj) 1 mg IM NOW ONE Stop: 05/30/20 20:53 Last Admin: 05/30/20 20:56 Dose: 1 mg Documented by: KASSANDRA Lorazepam (Lorazepam 0.5 Mg Tablet) 1 mg PO NOW ONE Stop: 05/31/20 15:37 Last Admin: 05/31/20 15:42 Dose: 1 mg Documented by: JONATHAN Nicotine (Nicotine 21 Mg Patch) 21 mg TOP NOW ONE Stop: 05/30/20 21:07 Last Admin: 05/30/20 21:17 Dose: 21 mg Documented by: KASSANDRA Ondansetron HCl (Ondansetron 4 Mg Odt) 4 mg SL NOW ONE Stop: 05/31/20 00:39 Last Admin: 05/31/20 00:43 Dose: 4 mg Documented by: EARLINE Quetiapine Fumarate (Quetiapine 100 Mg Tablet) 50 mg PO BEDTIME [facility] Last Admin: 05/30/20 21:38 Dose: 50 mg Documented by: KASSANDRA Vital Signs Vital signs: Vital Signs - 8 hr 05/31/20 18:04 05/31/20 18:05 Pulse Rate 87 83 Blood Pressure 172/97 H Pulse Oximetry 97 98 MDM - Psych <Sriram Jaimes DO - Last Filed: 06/01/20 01:39> Lab Data Result diagrams: 05/30/20 20:23 05/30/20 20:23 Labs: Lab Results 05/30/20 05/30/20 05/30/20 Range/Units 20:00 20:00 20:23 WBC 6.1 (4.5-11.0) X10^3/uL RBC 4.12 (4.0-5.2) X10^6/uL Hgb 11.8 L (12.0-16.0) g/dL Hct 36.8 (36-46) % MCV 89.2 (80-100) fL MCH 28.6 (26-34) PG MCHC 32.1 (30-36) % RDW 16.5 H (11.6-14.8) % Plt Count 264 (150-400) X10^3/uL Neut % (Auto) 44.3 L (50-75) % Lymph % (Auto) 43.1 H (25-40) % [place] % (Auto) 7.8 (3-14) % Eos % (Auto) 3.8 (2-4) % Baso % (Auto) 1.0 (0-2) % Neut # (Auto) 2700 (3718-1093) /uL Lymph # (Auto) 2600 (6344-7817) /uL [place] # (Auto) 500 (0-900) /uL Eos # (Auto) 200 (0-450) /uL Baso # (Auto) 100 (0-100) /uL Sodium (137-145) mmol/L Potassium (3.4-5.1) mmol/L Chloride (98-107) mmol/L Carbon Dioxide (22-32) mmol/L BUN (7-17) mg/dL Creatinine (0.52-1.04) mg/dL Estimated GFR (>60) mL/min BUN/Creatinine Ratio (6-22) Glucose (80-110) mg/dL Calcium (8.4-10.2) mg/dL Total Bilirubin (0.2-1.3) mg/dL AST (14-36) IU/L ALT (<35) IU/L Alkaline Phosphatase (38-126) U/L Total Protein (6.3-8.2) g/dL Albumin (3.5-5.0) g/dL Globulin (1.7-4.1) g/dL Albumin/Globulin Ratio (1.0-2.8) TSH (0.47-4.68) uIU/mL Urine RBC None seen (0-5/HPF) Urine WBC None seen (0-5/HPF) Amorphous Sediment 2+ Urine Bacteria None seen (None) Ur Culture Indicated? Cult not indicated Micro UA Comment . U Opiates 300ng/mL cut Negative (Negative) Ur Oxycodone Screen Negative (Negative) Urine Methadone Screen Negative (Negative) Ur Barbiturates Screen Negative (Negative) U Tricyclic Antidepress Negative (Negative) Ur Phencyclidine Scrn Negative (Negative) Ur Amphetamines Screen Negative (Negative) U Methamphetamines Scrn Negative (Negative) Ur MDMA Scrn (Ecstasy) Negative (Negative) U Benzodiazepines Scrn Negative (Negative) Urine Cocaine Screen Negative (Negative) U Marijuana (THC) Screen Negative (Negative) Ethyl Alcohol ( - 10) mg/dL COVID-19 PCR (Negative) 05/30/20 05/30/20 05/30/20 Range/Units 20:23 20:23 21:12 WBC (4.5-11.0) X10^3/uL RBC (4.0-5.2) X10^6/uL Hgb (12.0-16.0) g/dL Hct (36-46) % MCV (80-100) fL MCH (26-34) PG MCHC (30-36) % RDW (11.6-14.8) % Plt Count (150-400) X10^3/uL Neut % (Auto) (50-75) % Lymph % (Auto) (25-40) % [place] % (Auto) (3-14) % Eos % (Auto) (2-4) % Baso % (Auto) (0-2) % Neut # (Auto) (0184-3247) /uL Lymph # (Auto) (8656-8428) /uL [place] # (Auto) (0-900) /uL Eos # (Auto) (0-450) /uL Baso # (Auto) (0-100) /uL Sodium 146 H (137-145) mmol/L Potassium 4.4 (3.4-5.1) mmol/L Chloride 112 H (98-107) mmol/L Carbon Dioxide 27 (22-32) mmol/L BUN 17 (7-17) mg/dL Creatinine 1.05 H (0.52-1.04) mg/dL Estimated GFR 51.5 L (>60) mL/min BUN/Creatinine Ratio 16.2 (6-22) Glucose 101 (80-110) mg/dL Calcium 8.7 (8.4-10.2) mg/dL Total Bilirubin 0.3 (0.2-1.3) mg/dL AST 27 (14-36) IU/L ALT 18 (<35) IU/L Alkaline Phosphatase 63 (38-126) U/L Total Protein 7.7 (6.3-8.2) g/dL Albumin 4.3 (3.5-5.0) g/dL Globulin 3.4 (1.7-4.1) g/dL Albumin/Globulin Ratio 1.3 (1.0-2.8) TSH 1.09 (0.47-4.68) uIU/mL Urine RBC (0-5/HPF) Urine WBC (0-5/HPF) Amorphous Sediment Urine Bacteria (None) Ur Culture Indicated? Micro UA Comment U Opiates 300ng/mL cut (Negative) Ur Oxycodone Screen (Negative) Urine Methadone Screen (Negative) Ur Barbiturates Screen (Negative) U Tricyclic Antidepress (Negative) Ur Phencyclidine Scrn (Negative) Ur Amphetamines Screen (Negative) U Methamphetamines Scrn (Negative) Ur MDMA Scrn (Ecstasy) (Negative) U Benzodiazepines Scrn (Negative) Urine Cocaine Screen (Negative) U Marijuana (THC) Screen (Negative) Ethyl Alcohol 232 H ( - 10) mg/dL COVID-19 PCR Negative (Negative) Urine Dip Bedside Urine Glucose Negative Bedside Urine Bilirubin - Negative Bedside Urine Ketone - Negative Urine Specific [place] 1.010 Bedside Urine Occult Blood + Bedside Urine pH 6.0 Bedside Urine Protein - Negative Bedside Urine Urobilinogen +/- 1mg Bedside Urine Nitrite - Negative Bedside Urine Leukocytes - Negative Esterase <Deisy Drew, DO - Last Filed: 05/31/20 18:41> Lab Data Attestation: I reviewed the patient's lab results. Labs: Lab Results 05/30/20 05/30/20 05/30/20 Range/Units 20:00 20:00 20:23 WBC 6.1 (4.5-11.0) X10^3/uL RBC 4.12 (4.0-5.2) X10^6/uL Hgb 11.8 L (12.0-16.0) g/dL Hct 36.8 (36-46) % MCV 89.2 (80-100) fL MCH 28.6 (26-34) PG MCHC 32.1 (30-36) % RDW 16.5 H (11.6-14.8) % Plt Count 264 (150-400) X10^3/uL Neut % (Auto) 44.3 L (50-75) % Lymph % (Auto) 43.1 H (25-40) % [place] % (Auto) 7.8 (3-14) % Eos % (Auto) 3.8 (2-4) % Baso % (Auto) 1.0 (0-2) % Neut # (Auto) 2700 (8532-6364) /uL Lymph # (Auto) 2600 (7391-3447) /uL [place] # (Auto) 500 (0-900) /uL Eos # (Auto) 200 (0-450) /uL Baso # (Auto) 100 (0-100) /uL Sodium (137-145) mmol/L Potassium (3.4-5.1) mmol/L Chloride (98-107) mmol/L Carbon Dioxide (22-32) mmol/L BUN (7-17) mg/dL Creatinine (0.52-1.04) mg/dL Estimated GFR (>60) mL/min BUN/Creatinine Ratio (6-22) Glucose (80-110) mg/dL Calcium (8.4-10.2) mg/dL Total Bilirubin (0.2-1.3) mg/dL AST (14-36) IU/L ALT (<35) IU/L Alkaline Phosphatase (38-126) U/L Total Protein (6.3-8.2) g/dL Albumin (3.5-5.0) g/dL Globulin (1.7-4.1) g/dL Albumin/Globulin Ratio (1.0-2.8) TSH (0.47-4.68) uIU/mL Urine RBC None seen (0-5/HPF) Urine WBC None seen (0-5/HPF) Amorphous Sediment 2+ Urine Bacteria None seen (None) Ur Culture Indicated? Cult not indicated Micro UA Comment . U Opiates 300ng/mL cut Negative (Negative) Ur Oxycodone Screen Negative (Negative) Urine Methadone Screen Negative (Negative) Ur Barbiturates Screen Negative (Negative) U Tricyclic Antidepress Negative (Negative) Ur Phencyclidine Scrn Negative (Negative) Ur Amphetamines Screen Negative (Negative) U Methamphetamines Scrn Negative (Negative) Ur MDMA Scrn (Ecstasy) Negative (Negative) U Benzodiazepines Scrn Negative (Negative) Urine Cocaine Screen Negative (Negative) U Marijuana (THC) Screen Negative (Negative) Ethyl Alcohol ( - 10) mg/dL COVID-19 PCR (Negative) 05/30/20 05/30/20 05/30/20 Range/Units 20:23 20:23 21:12 WBC (4.5-11.0) X10^3/uL RBC (4.0-5.2) X10^6/uL Hgb (12.0-16.0) g/dL Hct (36-46) % MCV (80-100) fL MCH (26-34) PG MCHC (30-36) % RDW (11.6-14.8) % Plt Count (150-400) X10^3/uL Neut % (Auto) (50-75) % Lymph % (Auto) (25-40) % [place] % (Auto) (3-14) % Eos % (Auto) (2-4) % Baso % (Auto) (0-2) % Neut # (Auto) (6776-9568) /uL Lymph # (Auto) (1354-0122) /uL [place] # (Auto) (0-900) /uL Eos # (Auto) (0-450) /uL Baso # (Auto) (0-100) /uL Sodium 146 H (137-145) mmol/L Potassium 4.4 (3.4-5.1) mmol/L Chloride 112 H (98-107) mmol/L Carbon Dioxide 27 (22-32) mmol/L BUN 17 (7-17) mg/dL Creatinine 1.05 H (0.52-1.04) mg/dL Estimated GFR 51.5 L (>60) mL/min BUN/Creatinine Ratio 16.2 (6-22) Glucose 101 (80-110) mg/dL Calcium 8.7 (8.4-10.2) mg/dL Total Bilirubin 0.3 (0.2-1.3) mg/dL AST 27 (14-36) IU/L ALT 18 (<35) IU/L Alkaline Phosphatase 63 (38-126) U/L Total Protein 7.7 (6.3-8.2) g/dL Albumin 4.3 (3.5-5.0) g/dL Globulin 3.4 (1.7-4.1) g/dL Albumin/Globulin Ratio 1.3 (1.0-2.8) TSH 1.09 (0.47-4.68) uIU/mL Urine RBC (0-5/HPF) Urine WBC (0-5/HPF) Amorphous Sediment Urine Bacteria (None) Ur Culture Indicated? Micro UA Comment U Opiates 300ng/mL cut (Negative) Ur Oxycodone Screen (Negative) Urine Methadone Screen (Negative) Ur Barbiturates Screen (Negative) U Tricyclic Antidepress (Negative) Ur Phencyclidine Scrn (Negative) Ur Amphetamines Screen (Negative) U Methamphetamines Scrn (Negative) Ur MDMA Scrn (Ecstasy) (Negative) U Benzodiazepines Scrn (Negative) Urine Cocaine Screen (Negative) U Marijuana (THC) Screen (Negative) Ethyl Alcohol 232 H ( - 10) mg/dL COVID-19 PCR Negative (Negative) Urine Dip Bedside Urine Glucose Negative Bedside Urine Bilirubin - Negative Bedside Urine Ketone - Negative Urine Specific [place] 1.010 Bedside Urine Occult Blood + Bedside Urine pH 6.0 Bedside Urine Protein - Negative Bedside Urine Urobilinogen +/- 1mg Bedside Urine Nitrite - Negative Bedside Urine Leukocytes - Negative Esterase ECG Data Attestation: I personally reviewed and interpreted this ECG as follows: Interpretation: Normal sinus rhythm rate 85 p.r. interval 146 QRS [address] changes MDM Narrative Medical decision making narrative: Received sign-out from Dr. Jaimes. Patient is re-evaluated by social Work she is requesting to go to psychiatric facility. [facility] requested an EKG and for fax has accepted her. Discharge Plan Departure Patient Disposition: Xfer Psychiatric Hosp Clinical Impression: Depression with suicidal ideation, Alcohol abuse Finger laceration Qualifiers: Encounter type: initial encounter Finger: little finger Damage to nail status: without damage Foreign body presence: without foreign body Laterality: left Qualified Code(s): S61.217A - Laceration without foreign body of left little finger without damage to nail, initial encounter
--- NOTE | 2020-05-30 21:10 | PC.NURSE ---
Pt observed donning her coat and stating she wanted go home as she walked out of the hospital room. Pt assisted back into room, reminded of plan of care (lac repair of finger, social work tomorrow to help her obtain meds for her bipolar disorder.) Pt agitated, stated again and again that she just wants to go home. Dr Jaimes arrived at bedside, offered pt ativan to help her calm down and stay overnight. Pt agreeable. Pt given snack, juice, wound cleansed with normal saline. Pt asked for nicotine patch-- order received from Dr Jaimes. Pt now resting in bed with fresh warm blankets.
[2020-05-30] MEDS: NICOTINE 21 MG PATCH TOP (21:17)
[2020-05-30 21:22] LABS: Thyroid Stimulating Hormone 1.09 uIU/mL (0.47-4.68)
[2020-05-30] MEDS: QUETIAPINE 100 MG TABLET 50 MG PO (21:38)
[2020-05-30 21:48] LABS: COVID19 -Nasal RAPID Negative (Negative)
[2020-05-31] VITALS (26 sets, daily range): BP systolic 84–172; BP diastolic 54–97; PULSE 74–101; RESP 16–24; TEMP 36.8; O2SAT 92–99
[2020-05-31] MEDS: ONDANSETRON 4 MG ODT SL (00:43)
--- NOTE | 2020-05-31 00:50 | PC.NURSE ---
Pt vomiting, denies pain. BP 80/50's. Dr Jaimes notified, orders received for ODT zofran. Pt resting now, will continue to monitor.
--- NOTE | 2020-05-31 07:30 | PC.NURSE ---
After pt was medicated with Ativan at 2055 and finger was treated, pt relaxed and went to sleep, she woke at 0036 to have an emesis and again at 0500 pt woke and requested a drink of water, she was back to sleep with in moments of receiving her water and has remained asleep.
--- NOTE | 2020-05-31 08:56 | PC.NURSE ---
pt up to the bathroom, warm blanket and ice water provided. pt back to bed V/S taken and asleep shortly after.
--- NOTE | 2020-05-31 11:28 | CM.SWNOTE ---
PIZZA HUT ASSISTANT Note This PIZZA HUT ASSISTANT requested for consult to assess safety of this 74 yo female, PMH includes depression and Bipolar Disorder, SI and h/o multiple suicide attempts, brought in by [employer] after they were called to the home by cyndee Ye (?) patient found intoxicated, distressed, tearful making passive threats of suicide so they brought to the ED. Patient had a BAL of 232, tox screen neg for all other substances. According to review of the chart patient was admitted to 06.18.19 w/suicidal ideation, acute kidney injury and methamphetamine+ on tox. She was agreeable to inpatient treatment stay and transferred to [facility] 06.20.19. Met w/patient to start MH/safety assessment and gleaned the following details: Patient currently living w/her cyndee Ye who patient states is a heavy drinker..approx 11-18 cans of beer after work and on w/e. Patient is retired and stays at home throughout the day, states she sometimes drinks a few beers sometimes not. Patient has no biological children and no stated support system. Patient has income through social security. Patient admits her relationship is not good w/cyndee Ye but is not willing to leave [place] at this time and is saving up money to potentially leave this partner. Re: events leading up to this ER visit- patient cannot remember much after drinking 1-2 gin and tonics provided by her spouse last night (from the club [employer]?) and further admits this is no life admits to numerous and persistent episodes of high energy manic behavior and then depressive agitated state. Admits to being off her medication, that has historically assisted in mood regulation, and not seeing a psychiatrist or counselor d/t daily and debilitating depression and anxiety. Patient admits to current feelings of hopelessness, isolation and loneliness and desperation. Patient endorses suicidal thoughts throughout her life and endorses current thoughts w/plan to take medication and alcohol if I can buy enough sleeping pills Patient has a long standing h/o chronic homelessness and poly substance abuse, states she is currently not on any drugs. Patient plans to live w/her cyndee Ye but I want help Mood and affect very similar to patient's presentation almost one year ago, summarized here by Dr Bond, Behavioral Health psychiatrist: In terms of current symptoms, she complains of profoundly agitated and depressed mood but also seems extremely irritable and brittle. She reports sleep disturbance, psychomotor agitation, increased energy and agitation, profoundly negative self-esteem and emotions, poor concentration, distractibility, rapid thoughts, rapid speech, and apparently poor judgment given her recent history. Discussed inpatient psychiatric stay and patient agreeable, agrees w/this PIZZA HUT ASSISTANT's impression, that patient is current state of MH crisis, w/long standing h/o depression, Bipolar Disorder and suicide attempt, and would be a good candidate for stabilization and med management at an inpatient setting. JABIER Hinojosa
--- NOTE | 2020-05-31 13:42 | CM.SWNOTE ---
Addendum entered by JABIER Hinojosa 05/31/20 16:00: Update [facility]- no need for bed tonight. Addendum entered by JABIER Hinojosa 05/31/20 15:46: [facility] [address] [place] [address]. Accept[address] provider is Dr Rocío Iqbal. RN to RN report line is P# [phone]. Non emergent BLS needed for p/u and arrival no earlier than 1900, contact is Dunia in intake P# [phone] ask for Intake, Dunia. Update w/final p/u time and ETA to their facility. JW Addendum entered by JABIER Hinojosa 05/31/20 14:15: [facility] does not accept 70+, [facility] and [facility] have beds so faxed referral packets there, as of 05.31.20 1415 faxed facilities are the following: [facility] P# [phone] F# [phone] [facility] P# [phone] F# [phone] [facility] P# [phone] F# [phone] Original Note: Inpatient Placement Efforts: Following facilities have no beds today- [facility], [facility], [facility], [facility] has an available bed today, ekg requested and ordered by Dr Drew. ENVIRONMENTAL COMPLIANCE TECHNICIAN to fax packet once ekg is available. following closely. KORIN
[2020-05-31] MEDS: ACETAMINOPHEN 325 MG TABLET 975 MG PO (14:02)
--- NOTE | 2020-05-31 15:33 | PC.NURSE ---
I spoke about the patient with Dunia from [place]. Vital signs, meds administered, Cvid 19 status discussed. Dunia states she will call Aruna EUGENE soon.
[2020-05-31] MEDS: LORazepam 0.5 MG TABLET 1 MG PO (15:42)
--- NOTE | 2020-05-31 18:46 | PC.NURSE ---
[facility] arrives to transport pt end 1:1
== END 2020-05-31 19:05 ==
PROVIDERS: Emergency Medicine; Emergency Provider Emergency Medicine
DX: R45.851 Suicidal ideations (principal); F10.129 Alcohol abuse with intoxication, unspecified; Y90.7 Blood alcohol level of 200-239 mg/100 ml; S61.217A Laceration without foreign body of left little finger without damage to nail, initial encounter; F32.9 Major depressive disorder, single episode, unspecified; Z20.828 Contact with and (suspected) exposure to other viral communicable diseases; R07.9 Chest pain, unspecified
CPT/HCPCS: 36415; 80053; 80305; 80320; 81003; 81015; 84443; 85025; 87635; 93005; 96372; 99284; J2060

== ENCOUNTER 2020-07-31 20:25 | Inpatient (IN) | payer MEDICARE, SELFPAY ==
[2019-06-18 06:47] VITALS: BMI 17.2
[2020-07-31] VITALS (8 sets, daily range): BP systolic 116–156; BP diastolic 82–97; PULSE 65–116; RESP 16–20; TEMP 36.6–36.9; O2SAT 95–98; BMI 21.1
--- NOTE | 2020-07-31 20:25 | DI.RAD.S_ITS ---
PROCEDURE: XR ANKLE RT MIN 3V INDICATIONS: pain after fall TECHNIQUE: 3 views of the ankle were acquired. COMPARISON: None. FINDINGS: Bones: Comminuted fractures of the distal diaphysis of the tibia and metaphysis of the fibula. Soft tissues: No tibiotalar joint effusion. Achilles tendon appears normal. IMPRESSION: Distal tibia and fibular fractures. Dictated by: Emperatriz Dean MD, PhD on 07/31/2020 at 21:07 Approved by: Emperatriz Dean MD, PhD on 07/31/2020 at 21:08
--- NOTE | 2020-07-31 21:08 | ED.FALL ---
HPI - Fall General Chief Complaint: Fall Stated Complaint: Fall Time Seen by Provider: 07/31/20 20:25 Source: patient Mode of arrival: EMS Limitations: no limitations History of Present Illness HPI Narrative: Patient is a 74-year-old female who reports no other medical issues who is brought in by EMS for evaluation of a right leg injury. Patient states she was going down a flight of stairs with a smooth surface in socks when she fell landing on her right side. She did not hit her head. There was no loss of consciousness. She states she could not stand and walk so she laid on the ground for approximately 4 hours before someone found her. EMS was called. She received 10 of morphine by EMS prior to arrival. She reports pain in her right alicea and right ankle. Related Data Previous Rx's Medication Instructions Recorded fluoxetine [Prozac] 20 mg PO DAILY #30 cap 07/15/19 hydroxyzine HCl 25 mg PO TID PRN #10 tab 09/20/19 Allergies Allergy/AdvReac Type Severity Reaction Status Date / Time No Known Drug Allergies Allergy Verified 07/31/20 20:30 Review of Systems Constitutional Constitutional: Denies fever(s) Cardiovascular Cardiovascular: Denies chest pain and Denies dyspnea Respiratory Respiratory: Denies dyspnea Gastrointestinal Gastrointestinal: Denies abdominal pain, Denies nausea and Denies vomiting Genitourinary Genitourinary: Denies dysuria Genitourinary: Denies dysuria Musculoskeletal Musculoskeletal: Denies tingling Comments: Right alicea, right ankle pain Integumentary/Breasts Comments: Bruising to the right ankle Neurologic Neurologic: Denies tingling Hematologic/Lymphatic On Anticoagulants: No Allergic/Immunologic Allergic/Immunologic: Denies urticaria Patient History Medical History Anxiety and depression Depression with anxiety Hepatitis B Pancreatitis Suicide attempt Suicide attempt Surgical History H/O: hysterectomy Hx of appendectomy Hx of tonsillectomy Family History Mother Cancer Father Alzheimer disease Social History household members: significant other and none Smoking Status: Current every day smoker Tobacco: How many years used: 15 alcohol intake: current substance use type: methamphetamine (History of meth use in last week. ) Smoking Status: Current every day smoker alcohol intake frequency: 0-2 drinks per day Alcohol type: beer Substance Use Type: does not use Exam Initial Vital Signs Initial Vital Signs: Vital Signs Temperature 98.4 F 07/31/20 20:26 Pulse Rate 116 H 07/31/20 20:26 Respiratory Rate 18 07/31/20 20:26 Blood Pressure 116/83 07/31/20 20:26 Pulse Oximetry 97 07/31/20 20:26 Const General: cooperative, comfortable and well developed Limitations: mental status not altered HENMT Head: normal to inspection and normocephalic Resp Effort & Inspection: normal respiratory effort Cardio Rate: tachycardic Rhythm: regular rhythm Pulses: dorsalis pedis present on the right Skin Other: Bruising around the ankle however no blistering. No bleeding. Neuro Sensory Exam: no sensory deficits noted Extrem Other: Tenderness to palpation and swelling from distal tibia to the ankle. Psych Appearance: grossly normal and well kempt Procedures Orthopedic Fracture Reduction Fracture #1: Time Out Performed: Yes Side: right Fracture Reduction Location: tibia Technique: direct manipulation Post Reduction X-rays Demonstrate: acceptable reduction Post-reduction neuro exam: no change Post-reduction vascular exam: no change Splint Applied: Yes Patient Tolerated Procedure: Well and No complications Orthopedic Splinting/Casting Injury #1: Side: right Lower Extremity Injury Location: lower leg Lower Extremity Immobilizer: posterior splint and stirrup splint Post splinting neuro exam: no change Post splinting vascular exam: no change Placed by: Provider Course Orders Ordered: ED Orders 07/31/20 20:25 XR ankle RT min 3V Stat 07/31/20 20:35 Basic Metabolic Panel Stat Complete Blood Count AUTO DIFF Stat 07/31/20 21:17 COVID19 Stat Acetaminophen (Acetaminophen 325 Mg Tablet) 650 mg PO Q6HR PRN PRN Reason: Fever/Mild Pain (1-3) Docusate Sodium (Docusate 100 Mg Capsule) 100 mg PO BID KAMRAN Hydromorphone HCl (Hydromorphone 0.5 Mg Inj) 1 mg IV Q2H PRN PRN Reason: Pain, Mild (1-3) Hydromorphone HCl (Hydromorphone 0.5 Mg Inj) 0.5 mg IV Q1H PRN PRN Reason: Pain, Moderate (4-6) Sodium Chloride (Normal Saline 0.9%) 1,000 mls @ 125 mls/hr IV CONT KAMRAN Last Admin: 07/31/20 22:37 Dose: 125 mls/hr Documented by: Infusion: 07/31/20 22:37 Dose: 125 mls/hr Documented by: Admin: 07/31/20 21:51 Dose: 125 mls/hr Documented by: MARIA VICTORIA Lactated Ringer's (Lactated Ringers) 1,000 mls @ 100 mls/hr IV CONT KAMRAN Naloxone HCl (Naloxone 0.4 Mg/Ml Vial) 0.2 mg IV Q2MIN PRN PRN Reason: Opiate Reversal Ondansetron HCl (Ondansetron 4 Mg/2 Ml Inj) 4 mg IV Q4HR PRN PRN Reason: Nausea And Vomiting Last Admin: 07/31/20 22:50 Dose: 4 mg Documented by: DARLENE Ondansetron HCl (Ondansetron 4 Mg/2 Ml Inj) 4 mg IV Q8HR PRN PRN Reason: Nausea And Vomiting Ondansetron HCl (Ondansetron 4 Mg Odt) 4 mg PO Q8HR PRN PRN Reason: Nausea And Vomiting Oxycodone HCl (Oxycodone Ir 5 Mg Tablet) 5 mg PO Q3HR PRN PRN Reason: Pain, Moderate (4-6) Oxycodone HCl (Oxycodone Ir 10 Mg Tablet) 10 mg PO Q3HR PRN PRN Reason: Pain, Severe (7-10) Discontinued Medications Hydromorphone HCl (Hydromorphone 1 Mg Inj) 1 mg IV NOW ONE Stop: 07/31/20 21:31 Last Admin: 07/31/20 21:33 Dose: 1 mg Documented by: MARIA VICTORIA Vital Signs Vital signs: Vital Signs - 8 hr 07/31/20 20:26 07/31/20 20:27 07/31/20 20:30 Temperature 98.4 F Pulse Rate 116 H 92 H 87 Respiratory Rate 18 Blood Pressure 116/83 Pulse Oximetry 97 97 95 07/31/20 20:44 07/31/20 21:00 07/31/20 21:30 Temperature Pulse Rate 83 78 Respiratory Rate Blood Pressure 155/97 H 146/90 H Pulse Oximetry 97 95 96 MDM - Fall Lab Data Attestation: I reviewed the patient's lab results. Result diagrams: 07/31/20 20:35 07/31/20 20:35 Labs: Lab Results 07/31/20 07/31/20 07/31/20 Range/Units 20:35 20:35 21:17 WBC 8.7 (4.5-11.0) X10^3/uL RBC 4.00 (4.0-5.2) X10^6/uL Hgb 11.7 L (12.0-16.0) g/dL Hct 35.7 L (36-46) % MCV 89.2 (80-100) fL MCH 29.2 (26-34) PG MCHC 32.7 (30-36) % RDW 16.6 H (11.6-14.8) % Plt Count 314 (150-400) X10^3/uL Neut % (Auto) 67.3 (50-75) % Lymph % (Auto) 26.6 (25-40) % Rains % (Auto) 4.8 (3-14) % Eos % (Auto) 0.6 L (2-4) % Baso % (Auto) 0.7 (0-2) % Neut # (Auto) 5800 (6215-1845) /uL Lymph # (Auto) 2300 (9580-6161) /uL Rains # (Auto) 400 (0-900) /uL Eos # (Auto) 100 (0-450) /uL Baso # (Auto) 100 (0-100) /uL Sodium 140 (137-145) mmol/L Potassium 4.2 (3.4-5.1) mmol/L Chloride 110 H (98-107) mmol/L Carbon Dioxide 23 (22-32) mmol/L BUN 18 H (7-17) mg/dL Creatinine 0.92 (0.52-1.04) mg/dL Estimated GFR > 60.0 (>60) mL/min BUN/Creatinine Ratio 19.6 (6-22) Glucose 102 (80-110) mg/dL Calcium 8.6 (8.4-10.2) mg/dL SARS-CoV-2 (PCR) Negative (Negative) Imaging Data Ankle x-ray: Radiologist's Impression: [address] [place] [id number] ReportSigned Patient: Janett Downs LMR#: [id number]: [id number]:[id number]/Sex: 74 / FDate of Service: 07/31/20Loc: EDAccession Number: [id number] Procedure: XR ankle RT min 3V Ordering Provider: Patrice Terry D.O. PROCEDURE: XR ANKLE RT MIN 3V INDICATIONS: pain after fall TECHNIQUE: 3 views of the ankle were acquired. COMPARISON: None. FINDINGS: Bones: Comminuted fractures of the distal diaphysis of the tibia and metaphysis of the fibula. Soft tissues: No tibiotalar joint effusion. Achilles tendon appears normal. IMPRESSION: Distal tibia and fibular fractures. Dictated by: Emperatriz Dean MD, PhD on 07/31/2020 at 21:07 Approved by: Emperatriz Dean MD, PhD on 07/31/2020 at 21:08 [facility] Narrative Medical decision making narrative: Patient's only injury she reports is to her right lower extremity. She was neurovascularly intact with intact DP pulses. No other injuries reported from the event or found on exam. Her pelvis is stable. Splint was placed as described above. Discussed the case with with orthopedics who asked that I obtain a tib/fib x-ray and also a CT scan of the lower extremity after splint applied. She stated that she would follow up on the results of these imaging. We will admit for further evaluation and treatment. I did discuss this with the patient. She expressed understanding and agreement. Discharge Plan Departure Patient Disposition: Admitted as Observation Clinical Impression: Closed fracture shaft of tibia, Fibula fracture Admit Date/Time: 07/31/20 21:36 Admit Provider: Bridgette Stevens
[2020-07-31 21:20] LABS: Add Manual Diff / Slide Review NO; Basophils Absolute Auto 100 /uL (0-100); Basophils Percent Auto 0.7 % (0-2); Eosinophils Absolute Auto 100 /uL (0-450); Eosinophils Percent Auto 0.6 % (2-4); Hematocrit 35.7 % (36-46); Hemoglobin 11.7 g/dL (12.0-16.0); Lymphocytes Absolute Auto 2300 /uL (1100-4500); Lymphocytes Percent Auto 26.6 % (25-40); Mean Corpuscular HGB Conc 32.7 % (30-36); Mean Corpuscular Hemoglobin 29.2 PG (26-34); Mean Corpuscular Volume 89.2 fL (80-100); Monocytes Absolute Auto 400 /uL (0-900); Monocytes Percent Auto 4.8 % (3-14); Neutrophils Absolute Auto 5800 /uL (1500-7000); Neutrophils Percent Auto 67.3 % (50-75); Platelet Count 314 X10^3/uL (150-400); Red Cell Distribution Width 16.6 % (11.6-14.8); White Blood Cell Count 8.7 X10^3/uL (4.5-11.0)
[2020-07-31 21:27] LABS: BUN Creatinine Ratio 19.6 (6-22); Blood Urea Nitrogen 18 mg/dL (7-17); Calcium 8.6 mg/dL (8.4-10.2); Carbon Dioxide 23 mmol/L (22-32); Chloride 110 mmol/L (98-107); Estimated Glomerular Filt Rate > 60.0 mL/min (>60); Glucose 102 mg/dL (80-110); HEMOLYSIS < 15 (0-50); Potassium 4.2 mmol/L (3.4-5.1); Sodium 140 mmol/L (137-145)
--- NOTE | 2020-07-31 21:32 | P.HP_ITS ---
History of Present Illness History of Present Illness Chief complaint: Fall Narrative: 74-year-old female had a fall sustained injury to the right lower extremity. She is brought to [facility] and found to have a right tibial shaft fracture as well as right distal fibula fracture.CT scan was obtained and there was also a posterior malleolus fracture. Patient states that she was wearing socks and slipped down on the 2nd step of her 3 steps down into her living room. Has a remote history of a fracture to the left leg healed well. She does like to walk for exercise. She is a smoker approximately half per day. Denies any other medical problems. No allergies to antibiotics. No history of blood clots. Does have a chart history of depression and hepatitis-B. Patient History Medical History (Updated 08/01/20 @ 09:21 by Bridgette Stevens MD) Anxiety and depression Depression with anxiety Hepatitis B Pancreatitis Suicide attempt Suicide attempt Surgical History H/O: hysterectomy Hx of appendectomy Hx of tonsillectomy Family & Social History Family History Mother Cancer Father Alzheimer disease Social History: household members none Safety & Behavioral: Feels Safe in Current Yes Environment Been Physically Hurt or No Threatened By a Person Tobacco & Substance use: Tobacco type cigarettes Smoking Status Current every day smoker alcohol intake current alcohol intake frequency 0-2 drinks per day Substance Use Type does not use Meds Home Medications and Allergies Home Medications Medication Instructions Recorded Confirmed Type fluoxetine [Prozac] 20 mg PO DAILY #30 cap 07/15/19 Rx hydroxyzine HCl 25 mg PO TID PRN #10 tab 09/20/19 Rx Allergies Allergy/AdvReac Type Severity Reaction Status Date / Time No Known Drug Allergies Allergy Verified 07/31/20 20:30 Review of Systems Review of Systems Narrative: denies fevers chills nausea vomiting gastrointestinal problems coagulopathies. Endorses pain to the right lower extremity otherwise 10 system review of systems negative. ROS: Yes All systems reviewed with the patient and are negative except as otherwise documented Exam Vital Signs (past 8 hours): - 07/31/20 20:26 07/31/20 20:27 07/31/20 20:30 Temperature 98.4 F Pulse Rate 116 H 92 H 87 Respiratory Rate 18 Blood Pressure 116/83 Pulse Oximetry 97 97 95 Oxygen Delivery Method Room Air Narrative Exam Narrative: General exam is alert oriented female no acute distress pleasant. Lying in bed. Answers questions appropriately HEENT exam normocephalic atraumatic respiratory exam lungs clear to auscultation bilaterally CV exam regular rate and rhythm upper extremities moving bilateral upper extremities full range of motion no tenderness to palpation. No swelling right lower extremity demonstrates knee effusion but no tenderness to palpation. Calf is soft. Splint in place. A tenderness at the midshaft of the tibia and at the ankle. Wiggles toes. Sensation grossly intact to light touch in all distributions. Brisk capillary refill. Left foot demonstrates no swelling full normal range of motion of the ankle knee and toes. Calf is soft. Objective Imaging Right ankle x-ray three views: My impression: AP lateral mortise, right midshaft tibial shaft fracture and a distal fibula fracture. distal shaft fracture concerning for possible posterior malleolar involvement will obtain CT scan to evaluate. Right lower extremity CT scan: My impression: right lower extremity CT scan demonstrates fibula shaft fracture with moderate displacement. There is a nondisplaced large posterior malleolus fragment. And a distal fibula fracture sure at the level of the joint syndesmosis. Labs Result Diagrams: 07/31/20 20:35 07/31/20 20:35 Labs: Laboratory Results - last 24 hr 07/31/20 07/31/20 20:35 20:35 WBC 8.7 RBC 4.00 Hgb 11.7 L Hct 35.7 L MCV 89.2 MCH 29.2 MCHC 32.7 RDW 16.6 H Plt Count 314 Neut % (Auto) 67.3 Lymph % (Auto) 26.6 O'Brien % (Auto) 4.8 Eos % (Auto) 0.6 L Baso % (Auto) 0.7 Neut # (Auto) 5800 Lymph # (Auto) 2300 O'Brien # (Auto) 400 Eos # (Auto) 100 Baso # (Auto) 100 Sodium 140 Potassium 4.2 Chloride 110 H Carbon Dioxide 23 BUN 18 H Creatinine 0.92 Estimated GFR > 60.0 BUN/Creatinine Ratio 19.6 Glucose 102 Calcium 8.6 Assessment & Plan Assessment and plan (1) Closed fracture shaft of tibia: Problem details: Acute closed right tibial shaft fracture, unstable fracture pattern. Indicated for internal fixation. Plan for intramedullary nail. Indicated for inpatient management for monitoring for compartment syndrome and pain control. Planning for operative treatment Monday. Will be NPO at midnight. postop 2 weeks of Lovenox for DVT prophylaxis and then transition to aspirin. Will be nonweightbearing x6 weeks Status: Acute (2) Fibula fracture: Problem details: Distal right fibula fracture with displacement. Indicated for likely open reduction internal fixation. will evaluate ankle on stress exam after fixation of tibia. Status: Acute (3) Fracture, posterior malleolus: Problem details: Large posterior malleolus of fracture Involving the tibiotalar joint indicated for of fixation to avoid displacement with intramedullary nail. plan for operative fixation as above Status: Acute (4) Tobacco use: Problem details: greater than 3 minutes of tobacco cessation counseling was I discussed at discussed the adverse effects of nicotine on bone and tissue healing and increased risk for thromboembolism. Patient understands and has agreed to abstain from tobacco products. Status: Acute Quality VTE Deep Vein Thrombosis/Pulmonary Embolism Present on Admission: No
[2020-07-31] MEDS: HYDROMORPHONE 1 MG INJ IV (21:33)
[2020-07-31 21:50] LABS: COVID19 -Nasal RAPID Negative (Negative)
[2020-07-31] MEDS: SODIUM CHLORIDE 0.9% 1,000 ML 125 ML IV ×2 (21:51→22:37)
--- NOTE | 2020-07-31 21:52 | DI.CT.S_ITS ---
PROCEDURE: CT LE RT WO CON INDICATIONS: tib/fib fx TECHNIQUE: Noncontrast 3-mm axial sections acquired from the distal tibial shaft to the talar dome, with coronal and sagittal reformats.. COMPARISON: [facility], CR, XR TIBIA FIBULA RT 2V, 07/31/2020, 21:59. [facility], CR, XR ANKLE RT MIN 3V, 07/31/2020, 20:34. FINDINGS: Image quality: Excellent. Bones: There is a minimally displaced, comminuted fracture seen of the posterior medial tibial plateau. The fracture line is seen distally along the posterior cortex of the tibia, as on series 2, image 70 and on series 4 image 89. There is a nondisplaced fracture of the posterior aspect of the proximal fibula, as on series 5, image 115. There is a mildly to moderately displaced fracture seen of the tibial shaft. There is a mildly displaced posterior malleolar fracture, with intra-articular involvement. There is a mildly to moderately displaced comminuted distal fibular fracture, which is seen at and below the level of the syndesmosis. The medial malleolus appears intact. No talar dome fracture can be seen. The visualized bones of the foot demonstrate no acute fracture. Plantar and Achilles calcaneal spurs are seen. No suspicious lytic or blastic lesions are seen. Soft tissues: Soft tissue swelling is seen. No Achilles tendon abnormality is detected. IMPRESSION: Fractures are seen of the posterior medial tibial plateau, the proximal fibula, the tibial shaft, the posterior malleolus, and the lateral malleolus. Note: No significant discrepancy from the preliminary report. Dictated by: Andrea Doll M.D. on 08/01/2020 at 8:02 Approved by: Andrea Doll M.D. on 08/01/2020 at 8:07
--- NOTE | 2020-07-31 21:52 | DI.RAD.S_ITS ---
PROCEDURE: XR TIBIA FUBULA RT 2V INDICATIONS: tib fx/fib fx TECHNIQUE: 2 views of the tibia and fibula were acquired. COMPARISON: [facility], CR, XR ANKLE RT MIN 3V, 07/31/2020, 20:34. [facility], CT, CT LE RT WO CON, 07/31/2020, 22:06. FINDINGS: Bones: Improved alignment can be seen of the tibial shaft fracture, the distal fibular fracture, and the posterior malleolar fracture. There is a faintly seen proximal tibial fracture. The overlying casting material limits evaluation of fine detail. Soft tissues: Soft tissue swelling is seen. IMPRESSION: Improved anatomic alignment of the fractures, which are much better seen on the subsequently performed CT examination. Dictated by: Andrea Doll M.D. on 08/01/2020 at 8:07 Approved by: Andrea Doll M.D. on 08/01/2020 at 8:08
[2020-07-31] MEDS: ONDANSETRON 4 MG/2 ML INJ IV (22:50)
[2020-08-01] VITALS (21 sets, daily range): BP systolic 113–174; BP diastolic 54–104; PULSE 58–104; RESP 12–40; TEMP 36.4–37.2; O2SAT 85–98; BMI 21.1
--- NOTE | 2020-08-01 | DI.RAD.S_ITS ---
PROCEDURE: XR TIBIA FUBULA RT 2V INDICATIONS: ORIF RIGHT TIBIA and distal fibula TECHNIQUE: Fluoroscopic images were obtained during an operative procedure and submitted for interpretation following the completion of the procedure. COMPARISON: [facility], CR, XR ANKLE RT MIN 3V, 07/31/2020, 20:34. [facility], CT, CT LE RT WO CON, 07/31/2020, 22:06. [facility], CR, XR TIBIA FIBULA RT 2V, 07/31/2020, 21:59. FINDINGS: These fluoroscopic images were performed for intraoperative localization. On these images, a tibial rubio has been placed. There is a distal tibial screw also seen. Plate and screw fixation can be seen of the distal fibula. Please correlate with intraoperative findings. IMPRESSION: Normal intraoperative examination. Dictated by: Andrea Doll M.D. on 08/01/2020 at 16:47 Approved by: Andrea Doll M.D. on 08/01/2020 at 16:47
[2020-08-01] MEDS: LACTATED RINGERS 1,000 ML 100 ML IV ×2 (00:12→10:49)
[2020-08-01] MEDS: HYDROMORPHONE 0.5 MG INJ IV ×2 (04:31→08:14)
--- NOTE | 2020-08-01 08:46 | PC.NURSE ---
Addendum entered by Ana Goldstein R.N. 08/01/20 12:02: 1202-Pt off floor to OR with Maria Dolores RN, update provided for new anxiety and Ativan dose. One time dose has substantially helped with Patient's anxiety, she is able to lay still and doze intermittently, and is not tearful or wringing hands currently. Scrub pants from ER cut off prior to Pt leaving for OR. Addendum entered by Ana Goldstein R.N. 08/01/20 11:08: 1105-Pt has become progressively more anxious, agitated, tearful. I just need to get to surgery so I can get out of here Medicated for pain, and premedicated with zofran for expected nausea. Pt did become nauseated after slow IVP of Dilaudid. Pt remains tearful, distraction and breathing exercises done at bedside. Pt does appear to be calmer, upon further investigation, Pt admits to recent heavy meth use, and ETOH of a few drinks per day. Explained increased anxiety r/t w/d s/sx. Pt remains tearful, Everything hurts, and I'm stuck here. Call into Dr Becerra for discussion of medication used prior to anesthesia later this afternoon. Original Note: Am shift Pt A/o x4, medicated for pain, remains NPO for hardware placement later today. Pt reports living alone, but has friends nearby, questioning d/c plans. Reassured d/c case planner will see her today and work out any logistical challenges. Pt reports smoking, denies need for nicotine replacement. Appears anxious, fidgeting with hands.
--- NOTE | 2020-08-01 09:26 | PM.PREOP ---
Pre-operative Note COVID-19 COVID-19 status: Negative Interval Note History & Physical reviewed/Exam performed by Physician: Yes Changes to H&P: No
[2020-08-01] MEDS: HYDROMORPHONE 0.5 MG INJ 1 MG IV (10:48)
[2020-08-01] MEDS: ONDANSETRON 4 MG/2 ML INJ IV (10:49)
[2020-08-01] MEDS: LORazepam 2 MG/ML INJ 0.25 MG IV ×2 (11:33→17:26)
[2020-08-01] MEDS: LACTATED RINGERS 1,000 ML 42 ML IV ×2 (12:19→16:33)
--- NOTE | 2020-08-01 13:23 | DI.RAD.S_ITS ---
PROCEDURE: XR CHEST 1V INDICATIONS: pre op, post covid TECHNIQUE: One view of the chest was acquired. COMPARISON: None. FINDINGS: Surgical changes and devices: None. Lungs and pleura: Mild interstitial infiltrates are seen, right worse than left. Low lung volumes are noted. This causes a crowded appearance to the lung markings and limits evaluation. Mediastinum: The cardiac contours are within normal limits. The aorta demonstrates calcification and tortuosity. Bones and chest wall: No suspicious bony lesions. Age-appropriate bony degenerative changes are seen. Overlying soft tissues appear unremarkable. IMPRESSION: Mild interstitial infiltrates are seen, which are consistent with resolving COVID pneumonia. Dictated by: Andrea Doll M.D. on 08/01/2020 at 12:34 Approved by: Andrea Doll M.D. on 08/01/2020 at 12:37
[2020-08-01] MEDS: CEFAZOLIN 2 GM/100 ML FROZ.PIGGY IV ×2 (13:55→20:19)
[2020-08-01] MEDS: BUPIVACAINE 0.25% (PF) VIAL 30 ML INJ (14:35)
[2020-08-01] MEDS: EPINEPHrine 1 MG/ML 0.15 MG IM (14:39)
--- NOTE | 2020-08-01 15:09 | CM.IDA ---
Initial DCP Assessment Note Patient is a 74 yo female, resident of [place]. Patient presents after GLF at home and subsequent tib/fib fx requiring intramedullary nail by Dr Stevens . PCP: None listed Payer: [facility] Patient off the floor for surgery this afternoon. Reviewed chart. ALEXEI Perez shares concern re: patient's post operative plan, states patient was extremely anxious before surgery and it was very difficult to calm patient. Patient admits to chronic meth use . No updated tox screen done Review of prior chart notes show patient was seen by this [facility] in May 2020, patient was brought by EMS into the ED after she threatened suicide in front of BF. Inpatient psychiatric bed was secured at [facility]. Patient has long standing h/o of severe anxiety, depression w/ dx of Bipolar Disorder. H/o multiple inpatient psychiatric stays and poly substance abuse. According to ALEXEI Perez, patient may want to return home as soon as possible, although will be kept on [facility] protocol after her procedure today. [facility] team will follow closely and plan to complete bedside assessment POD#1 from patient's procedure. Therapy's evals will be helpful w/ dispo recommendation JW
--- NOTE | 2020-08-01 17:21 | PM.OP.1 ---
Operative Date/Time/Diagnoses Date of procedure: 08/01/20 Time of procedure: 14:30 Pre-op diagnosis: right tibial shaft fracture, right tibial plateau fracture, right fibula fracture, right posterior malleolus fracture, tobacco use disorder Post-op diagnosis: same Procedure & Clinicians Procedure: 1. treatment of righttibial shaft fracture with intramedullary nail CPT code 22636 2. Treatment of posterior malleolus fracture CPT code 66677-71 3. treatment of fibula fracture open reduction internal fixation CPT code 81651-05 4. Closed treatment posterior medial tibial plateau fracture, right CPT code 36190 Same procedure as scheduled: Yes Indications: this patient is a 74-year-old female that tripped and fell while she was walking down steps into a sunken room. She had immediate deformity and pain. She was brought [facility] where she was found to have a displaced right tibial shaft fracture as well as a fibula fracture. CT scan was obtained demonstrated posterior malleolus fracture as well as posterior depressed tibial plateau fracture. She is indicated for operative treatment of her unstable tibial shaft fracture. The risks and benefits of the procedure have been discussed with the patient even opportunity to ask questions. The risks of surgery include but are not limited to infection, malunion, nonunion, persistence of pain, damage to nerves and blood vessels, posttraumatic arthritis, DVT, PE, cardiopulmonary complications and . The patient expressed a thorough understanding of the risks and benefits of surgery and has elected to proceed. Consent was signed. We also discussed tobacco use a detrimental effect on healing and bone healing. Discussed vitamin D and calcium intake to aid bone healing. Surgeon: Bridgette Stevens Click Yes if Unassisted: Yes Anesthesia Type: General and Local Operative Notes Findings: Spiral distal shaft fracture. A tibial plateau fracture Minimal posterior medial depression. Posterior malleolus fracture nondisplaced. Displaced distal fibula fracture Closure Type: primary Specimen(s): none sent Prosthetic devices, grafts, tissues, transplants, or devices: tibia: Cuevas and nephew tibia nail Tri Gen 8.5 x 30 2 proximal interlocks 4.5 mm screws. And 2 distal 4.5 mm interlock screws posterior malleolus: 4.0 cannulated screw fibula: 8 hole 2.7 Cuevas and Nephew evos ankle cortical screws proximally locking screws distally closed treatment tibial plateau fracture Estimated Blood Loss (mL): 50 Blood products transfused: none Tourniquet time (min): 23 Procedure in detail: patient was seen in the preoperative area the site of surgery was marked informed consent confirmed. The patient was brought back to the operating room by the anesthesia team positioned supine on the operative table. A general anesthetic was administered. A well-padded thigh tourniquet was placed. All bony prominences were padded. An SCD was placed on the contralateral lower extremity. right lower extremities prepped and draped in the standard sterile fashion. Formal time-out procedure was performed confirming the patient's side and site of surgery administration of appropriate preoperative antibiotics. All were in agreement/ Posterior malleolus fixation: the C-arm was brought in and AP and lateral views confirm nondisplaced large posterior malleolus fracture. Skin incision was made at the level of the physeal scar anterior to posterior. This was dissected bluntly down to the level of the bone. Guidewire for a 4-0 cannulated screw was placed across the fracture site and then drilled and a partially threaded cannulated screw was placed. Right tibial shaft fixation: attention was then turned to the right tibial shaft. Approximately 6 cm incision midline starting midway over the patella and extending up proximally over the quad was taken down the skin and subcutaneous tissues to the level of the quad. The medial patellar retinaculum was partially split and up into the central quad. This allowed lateral subluxation of the patella. The entry protective sleeve was placed. Once the starting point was obtained guidewire was placed just medial to the lateral tibial spine. At this was confirmed in AP and lateral planes. The guidewire was advanced. The entry Reamer was placed. Care was taken to make sure this was down all the way on bone and the patella was protected. Next the ball-tip guidewire was placed. This was measured to be a 30 and nail. As it measured 33 and we subtracted 2 cm. Next the tibia was sequentially reamed starting at 9. There was noted to be a lot of chatter right at the isthmus in the area of the fracture with the 10 and with the 10.5 reamers as so the 8.5 and nail was selected. This was placed. And then confirmed to be the appropriate depth bolts distally and proximally. There is then a distal lock with the perfect [place] technique with 3 locking screws distally and then attention was turned to the proximal screws and the 2 all nails the screw holes were placed. Fracture alignment was appropriate. Right fibula fixation: Esmarch was utilized for exsanguination during the fibula ORIF. The tourniquet was elevated to 250 mm of mercury and stayed there for only 23 minutes.a separate lateral incision was taken over the distal fibula this was taken down through the subcutaneous tissues to the level of the bone. A pointed reduction clamp was used to reduce the oblique fracture restoring length and rotation. A 8 hole 2.7 locking plate from the Evoxac set was placed onto the bone and secured with olive wires. Next a nonlocking screws were placed proximally and locking screws distally. The ankle was then taken through range of motion and the syndesmosis was stressed and this was stable. Posterior medial tibial plateau fracture. A final AP and lateral x-rays of the knee confirmed stable alignment of the far posterior medial tibial plateau. This was treated conservatively. Final fluoroscopic images were obtained. Tourniquet was released. Hemostasis was achieved. Wounds were thoroughly irrigated. The as quadriceps and arthrotomy were closed with 0 Vicryl suture. A 2-0 was used subcutaneously and a 4-0 Monocryl of 3-0 nylon and briana were used in the skin. A well-padded posterior splint was placed. The patient was awoken from anesthesia and taken to recovery room. All counts were correct. There were no immediate complications. Complications: none Post-operative Condition: stable Disposition: PACU Plan for aftercare: nonweightbearing right lower extremity x6 weeks. May be toe-touch for balance. Lovenox for DVT prophylaxis 40 mg subQ daily x2 weeks then aspirin b.i.d. daily follow-up in orthopedic clinic in 2 weeks for x-rays and suture and staple removal
[2020-08-01] MEDS: fentaNYL 100 MCG/2 ML INJ IV ×3 (17:34→18:11)
--- NOTE | 2020-08-01 18:23 | SUR.PHASEI ---
Pt awoke very emotional, asking for her mommy and wanting to go home. Ativan 0.25mg given, pt also c/o pain medicated with fentanyl, Dr. Stevens to bedside, assessed cast, ordered torodol- awaiting pharmacy to verify med. After time pt eventually calmed, slept in between care, will sometimes awake and ask to go home.
[2020-08-01] MEDS: KETOROLAC 30 MG/ML VIAL IV (18:31)
--- NOTE | 2020-08-01 18:37 | SUR.PHASEI ---
Torodol given, Dr. Stevens to pt's bedside, loosened clark wrap and rewrapped with only one wrap, inner white wrap ripped open as well, pt stated this helped with pain as well.
[2020-08-01] MEDS: ACETAMINOPHEN 325 MG TABLET 650 MG PO (18:42)
[2020-08-01] MEDS: OXYCODONE IR 5 MG TABLET PO (18:44)
[2020-08-01] MEDS: LACTATED RINGERS 1,000 ML 84 ML IV (18:45)
--- NOTE | 2020-08-01 19:14 | SUR.PHASEI ---
Pt medicated with tylenol and oxycodone after applesauce was tolerated. pt transported back to room on 2/l nasal cannula o2, pt much clamer, pain down to a 6/10 and stated that the pain was tolerable tolerable. Pt left in stable condition.
[2020-08-01] MEDS: ACETAMINOPHEN 325 MG TABLET 975 MG PO (20:09)
[2020-08-01] MEDS: hydrOXYzine pamoate 25 MG CAPSULE PO (20:10)
[2020-08-01] MEDS: DOCUSATE 100 MG CAPSULE PO (20:10)
[2020-08-01] MEDS: LORazepam 0.5 MG TABLET PO (20:10)
[2020-08-01] MEDS: GABAPENTIN 300 MG CAPSULE PO (20:10)
--- NOTE | 2020-08-01 21:30 | PC.NURSE ---
Pt returned to floor approximately 1840 Moaning upon arrival, but denies discomfort. Cast to right lower leg, pulse ++ Cortés cath patent clear, yellow urine. IVF LR infusing @ 84cc/hr into LFA w/o incidence. Continues to moan loudly, Med w/ ativan w/ good relief. States she feels a bit better. Pt allowed to sleep. Call light w/in reach. bed alarm on for pt safety. COntinue w/plan of care.
[2020-08-02] MEDS: KETOROLAC 30 MG/ML VIAL 15 MG IV ×4 (00:03→17:29)
[2020-08-02] MEDS: CEFAZOLIN 2 GM/100 ML FROZ.PIGGY IV (03:09)
[2020-08-02 04:13] VITALS: BP 116/67; PULSE 70; RESP 14; TEMP 36.3; O2SAT 100
[2020-08-02 05:31] LABS: Hematocrit 28.1 % (36-46); Hemoglobin 9.5 g/dL (12.0-16.0); Mean Corpuscular HGB Conc 33.6 % (30-36); Mean Corpuscular Hemoglobin 30.1 PG (26-34); Mean Corpuscular Volume 89.5 fL (80-100); Platelet Count 214 X10^3/uL (150-400); Red Blood Cell Count 3.14 X10^6/uL (4.0-5.2); White Blood Cell Count 9.4 X10^3/uL (4.5-11.0)
[2020-08-02] MEDS: IBUPROFEN 400 MG TABLET 800 MG PO ×2 (06:12→13:55)
[2020-08-02] MEDS: LACTATED RINGERS 1,000 ML 84 ML IV (06:50)
[2020-08-02 07:45] VITALS: BP 94/55; PULSE 90; RESP 14; TEMP 36.9; O2SAT 100
[2020-08-02] MEDS: ENOXAPARIN 40 MG/0.4 ML SYRINGE SUBCUT (08:31)
[2020-08-02] MEDS: CALCIUM CITRATE 200 MG TABLET 600 MG PO ×2 (08:31→17:29)
[2020-08-02] MEDS: ACETAMINOPHEN 325 MG TABLET 975 MG PO ×3 (08:31→20:39)
[2020-08-02] MEDS: OXYCODONE IR 5 MG TABLET PO ×3 (08:32→20:39)
[2020-08-02] MEDS: FLUoxetine 20 MG CAPSULE PO (08:32)
[2020-08-02] MEDS: GABAPENTIN 300 MG CAPSULE PO ×3 (08:32→20:39)
[2020-08-02] MEDS: CHOLECALCIFEROL (VITAMIN D3) 5,000 UNIT TABLET 5000 UNIT PO (08:32)
[2020-08-02] MEDS: DOCUSATE 100 MG CAPSULE PO ×2 (08:33→20:39)
[2020-08-02 08:59] LABS: UR Morphine/Opiate cutoff 300 Positive (Negative); Ur Creatinine Normal (Normal); Ur Specific Gravity Normal (Normal); Urine Amphetamines Negative (Negative); Urine Barbiturates Negative (Negative); Urine Benzodiazepines Negative (Negative); Urine Cocaine Negative (Negative); Urine MDMA Negative (Negative); Urine Methadone Negative (Negative); Urine Methamphetamines Negative (Negative); Urine Oxycodone Positive (Negative); Urine Phencyclidine Negative (Negative); Urine Tetrahydrocannabinol Negative (Negative); Urine Tricyclic Antidepressant Negative (Negative); Urine pH Normal (Normal)
--- NOTE | 2020-08-02 10:10 | PT.IIE ---
Current Diagnoses Unspecified fracture of shaft of unspecified tibia, initial encounter for closed fracture (07/31/20) Other fracture of lower end of unspecified tibia, initial encounter for closed fracture (07/31/20) Unspecified fracture of shaft of unspecified fibula, initial encounter for closed fracture (07/31/20) Tobacco use (07/31/20) Surgery Performed Operation Date: 08/01/20 13:00 Actual Procedures p Intramedullary Nailing Tibia(Right) - Bridgette Stevens MD s ORIF right fibula(Right) - Bridgette Stevens MD Surgical History (Last Reviewed 09/21/19 @ 00:31 by JENNIFER Moody) H/O: hysterectomy Hx of appendectomy Hx of tonsillectomy Medical History (Last Updated 08/01/20 @ 14:23 by Christina Becerra MD) Anxiety and depression COVID-19 Depression with anxiety Hepatitis B Pancreatitis Suicide attempt Suicide attempt Physical Therapy Inpatient Evaluation/Re-Eval M1 PT/OT-IP Prior Functional Status Start: 08/02/20 09:01 Freq: NEEDED Status: Active Protocol: Document 08/02/20 10:10 AW (Rec: 08/02/20 11:13 AW [id number]) Medical Review Prior Functional Status Medical History Reviewed Yes Communication Pt's depression and anxiety affect communication due to emotional lability but she is able to make needs known. Mobility and Gait Independent without assistive device. Pt is active and walks for recreation and exercise. Activities of Daily Living and IADL's Independent Social History Household Members other Living Arrangements House Number of Floors (Floors) One Floor Number of Stairs To Enter/Railing? Pt accesses the house via level entry. There are three steps down/no rail to a sunken living room where she sleeps. Home Environment Standard Height Toilet,Tub/ Shower Additional Social History Comment Pt lives with her ex-boyfriend who works time clock mechanic at [employer]. She sleeps on the couch in the sunken living room. Pt identifies no other sources of social support. M2 PT-IP Current Condition Start: 08/02/20 09:01 Freq: NEEDED Status: Active Protocol: Document 08/02/20 10:10 AW (Rec: 08/02/20 11:13 AW [id number]) Physical Therapy Current Condition Current Condition Evaluation Date 08/02/20 Treatment Diagnosis R tibial shaft and distal fib fractures s/p ORIF; difficulty in walking Onset Date 07/31/20 Weight Bearing Status Weight Bearing Status Touch Down Weight Bearing Allowed Weight Bearing Amount (enter % Op note and weightbearing or #) (%) order state pt may toe touch for balance. M3 PT-IP Subjective Start: 08/02/20 09:01 Freq: NEEDED Status: Active Protocol: Document 08/02/20 10:10 AW (Rec: 08/02/20 11:13 AW [id number]) Subjective Physical Therapy Visit Type Type Initial Evaluation Visit Start Time 09:37 Visit Stop Time 10:10 Total Visit Minutes 33 Physical Therapy Visit Comments Patient Comments Pt is willing to participate with PT Therapy Pain Assessment Pain When Pain Assessed At Rest Pain Present Pain Present Pain Reported Location right ankle Intensity 7 Scale Used Numeric (0 - 10) M4 PT-IP Mobility and Gait Start: 08/02/20 09:01 Freq: NEEDED Status: Active Protocol: Document 08/02/20 10:10 AW (Rec: 08/02/20 12:37 AW [id number]) PT-Bed Mobility Assessment Supine to Sit Supine to Sit Moderate Assistance,1 Person Assistance,Bedrails Scooting Scooting to Edge of Bed Minimal Assistance PT-Transfer Assessment Sit to and From Stand Sit to and from Stand Moderate Assistance,1 Person Assistance,Use of Upper Extremities Equipment Transfer Assistive Device Gait Belt,Front Wheeled Walker Orthotic/Prosthetic Devices or Brace: No Transfers Transfer Destination Chair Transfer Technique Stand Step Pivot Transfer Ability Level of Assist Moderate Assistance,1 Person Assistance,Use of Upper Extremities Comments Mobility Comments Pt was reclined in the bed as PT arrived. BP was 117/73 HR 80 SpO2 96% on 2L via NC. With HOB flat, pt required mod A x 1 to come to sitting EOB and then to scoot toward edge. Pt was very tearful and complained of increased pain but was willing to attempt the transfer. With mod A x 1, pt stood from the bed in lowest position and pivoted on her left foot toward the chair set up on her right. She sat in the chair and was positioned there with call light and all needs in reach. Gait Assessment Gait Gait Assistance Required: Moderate Assistance,1 Person Assist Distance (Feet) 2 Able to Maintain Weight Bearing Status Yes During Gait Assistive Devices Assistive Device Gait Belt,Front Wheeled Walker Orthotic/Prosthetic Devices or Brace: No Comments Gait Comments Transfer only. Pt was able to maintain TTWB RLE during transfer but needed mod assist . Stair Climbing Assessment Comments Stair Climbing Comments Not assessed. PT-Balance Assessment Sitting Balance and Reactions Static Sitting Balance Ability Good Dynamic Sitting Balance Ability Good Standing Balance and Reactions Static Standing Balance Ability Fair Dynamic Standing Balance Ability Poor Device Used FWW M5 PT-IP Objective Assessments Start: 08/02/20 09:01 Freq: NEEDED Status: Active Protocol: Document 08/02/20 10:10 AW (Rec: 08/02/20 12:37 AW [id number]) Orientation Orientation/Cognition Level of Alertness Confusional State Orientation Name,Month,Place,Situation Language Function Ability No Deficits Noted Safety Awareness Decreased Safety Awareness Memory Description Short Term Impaired Comments Pt unable to recall weightbearing status after multiple attempts at education . Gross Range of Motion Upper Extremity ROM Assessment Within Functional Limits Lower Extremity ROM Assessment Right Impaired Strength Upper Extremity Strength Assessment Bilaterally Impaired Lower Extremity Strength Assessment Bilaterally Impaired Comments Strength Comments B shoulders 4/5 LLE 4/5 RLE 4-/5 Sensation Assessment Sensation Gross Sensation WNL Muscle Tone Muscle Tone WNL Yes M6 PT-IP Treatment Start: 08/02/20 09:01 Freq: NEEDED Status: Active Protocol: Document 08/02/20 10:10 AW (Rec: 08/02/20 12:37 AW [id number]) Physical Therapy Treatment Exercises Exercises Gluteal Sets,Quad Sets,Heel Slides Education Education Provided Precautions,Weight Bearing Status,Safety Other Treatments Other Treatment Performed Provided education on role of PT, plan of care, weightbearing status, and level of assist currently required for mobility. M7 PT-IP Assessment and Plan Start: 08/02/20 09:01 Freq: NEEDED Status: Active Protocol: Document 08/02/20 10:10 AW (Rec: 08/02/20 12:37 AW [id number]) PT Summary Assessment and Plan Potential Rehabilitation Potential Fair Status of Condition at Evaluation Evolving Summary Impairments Pain,ROM,Strength,Balance, Cognition,Bed Mobility, Transfers,Gait,Activity Tolerance Assessment Summary Janett is a 74 yo woman seen for PT evaluation on POD1 following ORIF for right tibial shaft and distal fibular fractures. She is active and independent at baseline. On evaluation, pt requires min to mod assist for bed mobilty and transfers. Pt is TTWB RLE and requires assist to maintain same. PT recommends SNF rehab vs home with 24/7 available assist and HH. However, pt states her roommate is unable to provide 24/7 assist and she can not identify any other source of support. Pt will require SNF rehab to improve strength and mobility independence prior to safe return home. Goals Bed Mobility Goal Standby Assistance Transfer Goal Standby Assistance,Front Wheeled Walker Gait Goal Standby Assistance,Front Wheel Walker Gait Distance 10 Other Goals - IF GOING HOME: up/down 3 steps sitting bump for TTWB RLE Days to Meet Goals 5 Frequency of Treatment Frequency Of Treatment Twice a Day Treatment Plan Physical Therapy Treatment Plan Bed Mobility Training,Transfer Training,Gait Training, Therapeutic Exercise,Balance Retraining,Post Op Education, Discharge Planning,Hot or Cold Pack Other Recommendations and Next Treatment bed mobility, transfers Focus Recommendations To Nursing Amount of Assist Needed 1 Person Assist Discharge Recommendations PT Discharge Recommendations SNF Rehab Equipment Needed for Home Before defer to subacute rehab Discharge setting Transportation Needs at Discharge Wheelchair/Cabulance
--- NOTE | 2020-08-02 10:22 | P.PN_ITS ---
Subjective Subjective Date Patient Seen: 08/02/20 Time Patient Seen: 10:23 Interval history: Postop day 1 right tibial IM nail did okay overnight. History of bipolar but has been off meds for 3 years. , does not like the way they make her feel. Emotionally liable and anxious but is able to calm down and be reoriented. Work with PT today need some help with transfers. Patient sources that living situation is within X at home who works most all the time and would not be of assistance. Also states would be unlikely to allow home healthcare to enter the home. She does have some stairs at home. Pain is reasonably controlled on oral medications. did have a dose of IV pain medication after therapy. Denies nausea vomiting. Exam Vital Signs (past 8 hours): - 08/02/20 04:13 08/02/20 07:45 Temperature 97.4 F L 98.4 F Pulse Rate 70 90 Respiratory Rate 14 14 Blood Pressure 116/67 94/55 L Pulse Oximetry 100 100 Oxygen Delivery Method Room Air Oxygen Flow Rate 2 Narrative Exam Narrative: Alert oriented female. Anxious. sitting up at bedside chair Respiratory is unlabored CV regular rate and rhythm moving upper extremities without difficulty. Full range of motion no tenderness right lower extremity in splint. Wiggles toes. A Tegaderm and gauze dressings at the knee. Moderate knee swelling no erythema. Top of splint is split and calf is soft. sensation grossly intact to light touch Objective Labs Result Diagrams: 08/02/20 05:13 07/31/20 20:35 Labs: Laboratory Results - last 24 hr 08/02/20 08/02/20 05:13 08:40 WBC 9.4 RBC 3.14 L Hgb 9.5 L Hct 28.1 L MCV 89.5 MCH 30.1 MCHC 33.6 RDW 17.0 H Plt Count 214 U Opiates 300ng/mL cut Positive H Ur Oxycodone Screen Positive H Urine Methadone Screen Negative Ur Barbiturates Screen Negative U Tricyclic Antidepress Negative Ur Phencyclidine Scrn Negative Ur Amphetamines Screen Negative U Methamphetamines Scrn Negative Ur MDMA Scrn (Ecstasy) Negative U Benzodiazepines Scrn Negative Urine Cocaine Screen Negative U Marijuana (THC) Screen Negative [facility] Medical History (Updated 08/01/20 @ 14:23 by Christina Becerra MD) Anxiety and depression COVID-19 Depression with anxiety Hepatitis B Pancreatitis Suicide attempt Suicide attempt Surgical History H/O: hysterectomy Hx of appendectomy Hx of tonsillectomy Family History Mother Cancer Father Alzheimer disease Social History household members: significant other and none Smoking Status: Current every day smoker Tobacco: How many years used: 15 alcohol intake: current substance use type: methamphetamine (History of meth use in last week. ) Assessment & Plan Post-op Postoperative Procedures: Procedures Operation Date: 08/01/20 13:00 Actual Procedures Side Surgeon p Intramedullary Nailing Tibia Right Bridgette Stevens MD s ORIF right fibula Right Bridgette Stevens MD status post intramedullary nail right tibia fracture status post ORIF fibula fracture. Status post ORIF right posterior malleolus fracture. And a closed treatment of posterior medial tibial plateau fracture. Doing okay. Pain Reasonably controlled. Compartments are soft. Ivan mmended forskilled nursing or rehab situation after working with physical therapy. Difficulty with the social support at home. Recommend placement. Third midnight will be tonight. Will work on approval likely discharge to rehab tomorrow. Medications printed and on the chart. medical decision making. Patient requires inpatient admission status tibial shaft fracture. For surgery pain control. Compartment monitoring. Compartments currently soft. And pain reasonably controlled. . Continued requirement for inpatient admission for skilled placement, due to Weakness, mobility concerns and skilled rehab needs. Quality VTE Deep Vein Thrombosis/Pulmonary Embolism Present on Admission: No
[2020-08-02] MEDS: LORazepam 0.5 MG TABLET PO ×2 (11:02→20:39)
--- NOTE | 2020-08-02 11:48 | CM.DPC ---
Addendum entered by JABIER Toth 08/02/20 15:34: ADD: SW called [facility] to confirm they received referral and if they have reviewed but had to [place] [facility] but [place] them [place] [facility] that pt would be likely ready for d/c tomorrow and requested call back to confirm if they can accept and if they have openings for tomorrow. SW also attempted to call [facility] but no answer or voicemail to inquire about receiving referral and if they have reviewed. Plan: SW to follow closely in the morning for [facility], [facility], [facility], and [facility] review for SNF prior to return home. JABIER Toth Addendum entered by JABIER Toth 08/02/20 14:06: Per Sangeetha, some concerns regarding pt's home situation and support and her hx of MH and CD but will have Cris review in the morning. PIYUSH also faxed referral to [facility] as another backup. PIYUSH spoke to Taylor at [facility] and she confirm they are getting the referral right now and will review and update SW on if they can accept. BF Original Note: DCP SNF Planning Per Ortho , pt could potentially d/c home today pending PT initial eval and recommendations. Per PT, pt had difficulty with transfers and remembering her toe touch weight baring status and recommending SNF or 24/7 assist and HH. Ortho and PIYUSH met bedside with pt and explained role and need to d/c plan and pt confirms that she has been living with her ex and he works as a metal casket maker long hours and is typically gone with friends after work and on weekends and will not be available for 24/7 assist and pt cannot think of anyone else right now that can provide 24/7. and PIYUSH discussed SNF rehab and pt is agreeable with SNF under Medicare and tonight will be her 3 night Medicare qualifying stay. SW provided SNF Choice List to pt to review and her preference is [facility] due to location and then back up would be next closest SNF to [place]. Pt has no hx of SNF and SW explained services and rehab at SNF. Pt seems much relieved that SNF placement will be attempted towards increasing her independence with ADL's and mobility prior to return home. Per , pt's UDS was only positive for medications provided in the ED of opiates and oxycodone due to her Tib/Fib fx. Pt fairly anxious but with encouragement and redirection she calms quickly and follows directives. SW called [facility] admissions with new referral and update that pt will likely be stable for d/c tomorrow, they will review and let SW know if they can accept. SW called [facility] and [facility] with referral as well for backup if [facility] cannot accept. PASRR completed in anticipation of SNF. Plan: SW to follow for 1) [facility] 2) [facility] and [facility] review to determine SNF placement likely tomorrow prior to safe return home. Updated COVID may be needed pending d/c time and date. JABIER Toth
[2020-08-02 11:55] VITALS: BP 111/83; PULSE 80; RESP 14; TEMP 37.2; O2SAT 94
[2020-08-02] MEDS: HYDROMORPHONE 0.5 MG INJ IV (13:56)
--- NOTE | 2020-08-02 14:13 | PT.IPTN ---
Current Diagnoses Unspecified fracture of shaft of unspecified tibia, initial encounter for closed fracture (07/31/20) Other fracture of lower end of unspecified tibia, initial encounter for closed fracture (07/31/20) Unspecified fracture of shaft of unspecified fibula, initial encounter for closed fracture (07/31/20) Tobacco use (07/31/20) Surgery Performed Operation Date: 08/01/20 13:00 Actual Procedures p Intramedullary Nailing Tibia(Right) - Bridgette Stevens MD s ORIF right fibula(Right) - Bridgette Stevens MD Physical Therapy Treatment Note M2 PT-IP Current Condition Start: 08/02/20 09:01 Freq: NEEDED Status: Active Protocol: Document 08/02/20 10:10 AW (Rec: 08/02/20 11:13 AW [id number]) Physical Therapy Current Condition Current Condition Evaluation Date 08/02/20 Treatment Diagnosis R tibial shaft and distal fib fractures s/p ORIF; difficulty in walking Onset Date 07/31/20 Weight Bearing Status Weight Bearing Status Touch Down Weight Bearing Allowed Weight Bearing Amount (enter % Op note and weightbearing or #) (%) order state pt may toe touch for balance. 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 0 Physical Therapy Visit Comments Patient Comments Pt is willing to participate with PT Therapy Pain Assessment Pain When Pain Assessed At Rest Pain Present Pain Present Pain Reported Location right ankle Intensity 8 Scale Used Numeric (0 - 10) M4 PT-IP Mobility and Gait Start: 08/02/20 09:01 Freq: NEEDED Status: Active Protocol: Document 08/02/20 14:13 AW (Rec: 08/02/20 14:59 AW [id number]) PT-Bed Mobility Assessment Supine to Sit Supine to Sit Minimal Assistance,1 Person Assistance,Bedrails Sit to Supine Sit to Supine Minimal Assistance,1 Person Assistance,Bedrails Scooting Scooting to Edge of Bed Minimal Assistance PT-Transfer Assessment Sit to and From Stand Sit to and from Stand Minimal Assistance,1 Person Assistance,Use of Upper Extremities Equipment Transfer Assistive Device Gait Belt,Front Wheeled Walker Orthotic/Prosthetic Devices or Brace: No Transfers Transfer Destination Bed,Chair Transfer Technique Stand Step Pivot Transfer Ability Level of Assist Moderate Assistance,1 Person Assistance,Use of Upper Extremities Comments Mobility Comments Pt was lying in the bed as PT arrived. She needed min assist and heavy use of bed features to complete supine to sit. She stood from the bed min A x 1 and used the FWW to ambulate to the window with RLE TTWB min A x 1. Pt agreed to sit on the chair but then decided to return to bed. PT pushed the chair next to the bed and provided min assist for chair to bed transfer and sit to supine. Pt completed bed exercises and was then left with call light and all needs in reach. Bed alarm was on as PT departed. Gait Assessment Gait Gait Assistance Required: Minimum Assistance,Moderate Assistance,1 Person Assist Distance (Feet) 8 Able to Maintain Weight Bearing Status Yes During Gait Assistive Devices Assistive Device Gait Belt,Front Wheeled Walker Orthotic/Prosthetic Devices or Brace: No Comments Gait Comments Pt improved with TTWB and was able to ambulate ~8 feet min A x 1 with FWW. Stair Climbing Assessment Comments Stair Climbing Comments Not assessed. PT-Balance Assessment Sitting Balance and Reactions Static Sitting Balance Ability Good Dynamic Sitting Balance Ability Good Standing Balance and Reactions Static Standing Balance Ability Fair Dynamic Standing Balance Ability Poor Device Used FWW M5 PT-IP Objective Assessments Start: 08/02/20 09:01 Freq: NEEDED Status: Active Protocol: Document 08/02/20 10:10 AW (Rec: 08/02/20 12:37 AW [id number]) Orientation Orientation/Cognition Level of Alertness Confusional State Orientation Name,Month,Place,Situation Language Function Ability No Deficits Noted Safety Awareness Decreased Safety Awareness Memory Description Short Term Impaired Comments Pt unable to recall weightbearing status after multiple attempts at education . Gross Range of Motion Upper Extremity ROM Assessment Within Functional Limits Lower Extremity ROM Assessment Right Impaired Strength Upper Extremity Strength Assessment Bilaterally Impaired Lower Extremity Strength Assessment Bilaterally Impaired Comments Strength Comments B shoulders 4/5 LLE 4/5 RLE 4-/5 Sensation Assessment Sensation Gross Sensation WNL Muscle Tone Muscle Tone WNL Yes M6 PT-IP Treatment Start: 08/02/20 09:01 Freq: NEEDED Status: Active Protocol: Document 08/02/20 14:13 AW (Rec: 08/02/20 14:59 AW [id number]) Physical Therapy Treatment Exercises Exercises Gluteal Sets,Quad Sets,Heel Slides Education Education Provided Weight Bearing Status,Safety M7 PT-IP Assessment and Plan Start: 08/02/20 09:01 Freq: NEEDED Status: Active Protocol: Document 08/02/20 14:13 AW (Rec: 08/02/20 14:59 AW [id number]) PT Summary Assessment and Plan Potential Rehabilitation Potential Fair Status of Condition at Evaluation Evolving Summary Impairments Pain,ROM,Strength,Balance, Cognition,Bed Mobility, Transfers,Gait,Activity Tolerance Progress Towards Goals Slow Progress due to Pain,Slow Progress due to Activity Tolerance Assessment Summary Janett is improving in her mobility but continues to require assist especially to maintain TTWB RLE. She will require SNF rehab to improve strength and mobility independence prior to safe return home. Goals Bed Mobility Goal Standby Assistance Transfer Goal Standby Assistance,Front Wheeled Walker Gait Goal Standby Assistance,Front Wheel Walker Gait Distance 10 Other Goals - IF GOING HOME: up/down 3 steps sitting bump for TTWB RLE Days to Meet Goals 5 Frequency of Treatment Frequency Of Treatment Twice a Day Treatment Plan Physical Therapy Treatment Plan Bed Mobility Training,Transfer Training,Gait Training, Therapeutic Exercise,Balance Retraining,Post Op Education, Discharge Planning,Hot or Cold Pack Recommendations To Nursing Amount of Assist Needed 1 Person Assist Discharge Recommendations PT Discharge Recommendations SNF Rehab Equipment Needed for Home Before defer to subacute rehab Discharge setting Transportation Needs at Discharge Wheelchair/Cabulance
[2020-08-02 15:20] VITALS: BP 110/69; PULSE 90; RESP 18; TEMP 37.1; O2SAT 93
--- NOTE | 2020-08-02 19:07 | PC.NURSE ---
Shift note: During patient check, patient appeared to be anxious and this RN offered medication intervention. When this RN returned patient declined medication, I changed my mind and asked for lights to be turned off to go to sleep. Educated patient that would be returning in a few hours to do bed time medication and patient stated I don't want them. Will be annotated in AUG.
[2020-08-02 19:30] VITALS: BP 122/73; PULSE 87; RESP 16; TEMP 36.9; O2SAT 91
[2020-08-03 00:03] VITALS: BP 109/62; PULSE 83; RESP 18; TEMP 36.8; O2SAT 92
[2020-08-03] MEDS: IBUPROFEN 400 MG TABLET 800 MG PO ×3 (00:35→14:45)
[2020-08-03 03:25] VITALS: BP 127/90; PULSE 89; RESP 20; TEMP 36.9; O2SAT 93
[2020-08-03] MEDS: OXYCODONE IR 5 MG TABLET PO ×2 (03:27→08:51)
[2020-08-03 08:00] VITALS: BP 141/82; PULSE 77; RESP 17; TEMP 36.5; O2SAT 94
[2020-08-03] MEDS: ACETAMINOPHEN 325 MG TABLET 975 MG PO ×2 (08:50→14:44)
[2020-08-03] MEDS: CALCIUM CITRATE 200 MG TABLET 600 MG PO (08:50)
[2020-08-03] MEDS: CHOLECALCIFEROL (VITAMIN D3) 5,000 UNIT TABLET 5000 UNIT PO (08:51)
[2020-08-03] MEDS: ENOXAPARIN 40 MG/0.4 ML SYRINGE SUBCUT (08:51)
[2020-08-03] MEDS: DOCUSATE 100 MG CAPSULE PO (08:51)
[2020-08-03] MEDS: FLUoxetine 20 MG CAPSULE PO (08:52)
[2020-08-03] MEDS: GABAPENTIN 300 MG CAPSULE PO ×2 (08:52→14:45)
[2020-08-03] MEDS: SODIUM CHLORIDE 0.9% FLUSH 10 ML IV (08:52)
--- NOTE | 2020-08-03 09:30 | PT.IPTN ---
Current Diagnoses Unspecified fracture of shaft of unspecified tibia, initial encounter for closed fracture (07/31/20) Other fracture of lower end of unspecified tibia, initial encounter for closed fracture (07/31/20) Unspecified fracture of shaft of unspecified fibula, initial encounter for closed fracture (07/31/20) Tobacco use (07/31/20) Surgery Performed Operation Date: 08/01/20 13:00 Actual Procedures p Intramedullary Nailing Tibia(Right) - Bridgette Stevens MD s ORIF right fibula(Right) - Bridgette Stevens MD Physical Therapy Treatment Note M2 PT-IP Current Condition Start: 08/02/20 09:01 Freq: NEEDED Status: Active Protocol: Document 08/02/20 10:10 AW (Rec: 08/02/20 11:13 AW [id number]) Physical Therapy Current Condition Current Condition Evaluation Date 08/02/20 Treatment Diagnosis R tibial shaft and distal fib fractures s/p ORIF; difficulty in walking Onset Date 07/31/20 Weight Bearing Status Weight Bearing Status Touch Down Weight Bearing Allowed Weight Bearing Amount (enter % Op note and weightbearing or #) (%) order state pt may toe touch for balance. M3 PT-IP Subjective Start: 08/02/20 09:01 Freq: NEEDED Status: Active Protocol: Document 08/03/20 09:19 AW (Rec: 08/03/20 09:30 AW [id number]) Subjective Physical Therapy Visit Type Type Treatment Note Visit Start Time 09:01 Visit Stop Time 09:16 Total Visit Minutes 15 Number of METAL WEIGHER Visits 0 Physical Therapy Visit Comments Patient Comments Pt is tearful and complaining of pain but is willing to participate with PT Therapy Pain Assessment Pain When Pain Assessed At Rest Pain Present Pain Present Pain Reported Location right ankle Scale Used not quantified M4 PT-IP Mobility and Gait Start: 08/02/20 09:01 Freq: NEEDED Status: Active Protocol: Document 08/03/20 09:19 AW (Rec: 08/03/20 09:30 AW [id number]) PT-Bed Mobility Assessment Supine to Sit Supine to Sit Contact Guard Assistance, Bedrails Sit to Supine Sit to Supine Minimal Assistance,1 Person Assistance,Bedrails Scooting Scooting to Edge of Bed Contact Guard Assistance PT-Transfer Assessment Sit to and From Stand Sit to and from Stand Contact Guard Assistance,Use of Upper Extremities Equipment Transfer Assistive Device Gait Belt,Front Wheeled Walker Orthotic/Prosthetic Devices or Brace: No Transfers Transfer Destination Bed,Toilet Transfer Technique Stand Step Pivot Transfer Ability Level of Assist Minimal Assistance,1 Person Assistance,Use of Upper Extremities Comments Mobility Comments Pt was lying in the bed as PT arrived. She pulled up to long sitting and required CGA to swing her legs toward the right EOB. In sitting, she complained of increased pain with her leg dependent. She stood from the bed and used the FWW to ambulate 12 feet to the toilet CGA. She transferred to and from the toilet, completing pericare independently and then ambulated with FWW CGA back to the bed. She returned to supine and completed bed exercised before PT departed. Pt was left with ice packs to ankle and bed alarm armed for safety Gait Assessment Gait Gait Assistance Required: Contact Guard Assist,1 Person Assist Distance (Feet) 12 Able to Maintain Weight Bearing Status Yes During Gait Assistive Devices Assistive Device Gait Belt,Front Wheeled Walker Orthotic/Prosthetic Devices or Brace: No Gait Deviations General Gait Pattern Antalgic,Decreased Stride Length,Decreased Feet Clearance,Flexed Trunk,Step-to Gait Factors Limiting Gait Function Factors Limiting Gait Function Decreased Activity Tolerance, Decreased Strength,Limited Range of Motion,Pain,Poor Balance,Poor Safety Awareness Comments Gait Comments Pt required CGA for 12 feet x 2 with FWW. She is improving with TTWB. Stair Climbing Assessment Comments Stair Climbing Comments Not assessed. PT-Balance Assessment Sitting Balance and Reactions Static Sitting Balance Ability Good Dynamic Sitting Balance Ability Good Standing Balance and Reactions Static Standing Balance Ability Fair Dynamic Standing Balance Ability Fair Device Used FWW M5 PT-IP Objective Assessments Start: 08/02/20 09:01 Freq: NEEDED Status: Active Protocol: Document 08/02/20 10:10 AW (Rec: 08/02/20 12:37 AW [id number]) Orientation Orientation/Cognition Level of Alertness Confusional State Orientation Name,Month,Place,Situation Language Function Ability No Deficits Noted Safety Awareness Decreased Safety Awareness Memory Description Short Term Impaired Comments Pt unable to recall weightbearing status after multiple attempts at education . Gross Range of Motion Upper Extremity ROM Assessment Within Functional Limits Lower Extremity ROM Assessment Right Impaired Strength Upper Extremity Strength Assessment Bilaterally Impaired Lower Extremity Strength Assessment Bilaterally Impaired Comments Strength Comments B shoulders 4/5 LLE 4/5 RLE 4-/5 Sensation Assessment Sensation Gross Sensation WNL Muscle Tone Muscle Tone WNL Yes M6 PT-IP Treatment Start: 08/02/20 09:01 Freq: NEEDED Status: Active Protocol: Document 08/03/20 09:19 AW (Rec: 08/03/20 09:30 AW [id number]) Physical Therapy Treatment Exercises Exercises Gluteal Sets,Quad Sets,Heel Slides,Straight Leg Raises Education Education Provided Weight Bearing Status,Safety M7 PT-IP Assessment and Plan Start: 08/02/20 09:01 Freq: NEEDED Status: Active Protocol: Document 08/03/20 09:19 AW (Rec: 08/03/20 09:30 AW [id number]) PT Summary Assessment and Plan Potential Rehabilitation Potential Good Status of Condition at Evaluation Evolving Summary Impairments Pain,ROM,Strength,Balance, Cognition,Bed Mobility, Transfers,Gait,Activity Tolerance Progress Towards Goals Slow Progress due to Pain,Slow Progress due to Activity Tolerance Assessment Summary Janett still requires assist with mobility with her main limitation being pain and difficulty maintaining TTWB RLE. She would benefit from SNF rehab to improve strength and functional mobility. Goals Bed Mobility Goal Standby Assistance Transfer Goal Standby Assistance,Front Wheeled Walker Gait Goal Standby Assistance,Front Wheel Walker Gait Distance 10 Other Goals - IF GOING HOME: up/down 3 steps sitting bump for TTWB RLE Days to Meet Goals 5 Frequency of Treatment Frequency Of Treatment Twice a Day Treatment Plan Physical Therapy Treatment Plan Bed Mobility Training,Transfer Training,Gait Training, Therapeutic Exercise,Balance Retraining,Post Op Education, Discharge Planning,Hot or Cold Pack Recommendations To Nursing Amount of Assist Needed 1 Person Assist Discharge Recommendations PT Discharge Recommendations SNF Rehab Equipment Needed for Home Before defer to subacute rehab Discharge setting Transportation Needs at Discharge Wheelchair/Cabulance
[2020-08-03] MEDS: hydrOXYzine pamoate 25 MG CAPSULE PO (11:09)
--- NOTE | 2020-08-03 11:14 | P.DS_ITS ---
History of Present Illness History of Present Illness Date Patient Seen: 08/03/20 Time Patient Seen: 11:15 Chief complaint: Fall Narrative: Pain is moderate. Denies fever or chills. No nausea vomiting. Occasional numbness on the dorsum of her foot improves with elevating extremity. Discharge Providers Provider Date of admission: 07/31/20 21:36 Discharge Date: 08/03/20 Consults: 07/31/20 21:55 Consult to Orthopedic Surgery Urgent Comment: Consulting Provider: Bridgette Stevens Reason for consultation: Tib-fib fracture Has provider been notified: Yes 08/01/20 19:51 Consult to Discharge Planning Routine Comment: Consult to Physical Therapy Evaluate & Treat Comment: ttwb rle Physician Instructions: Evaluate and Treat Consult to Respiratory Therapy Evaluate & Treat Comment: Physician Instructions: Evaluate and treat Discharge provider: Anibal Buck PA-C Summary Hospital Course Discharge Diagnosis: Right tibial shaft fracture, right tibial plateau fracture, right fibular fracture, right posterior malleolus fracture, tobacco use disorder Anxiety and depression Hepatitis B Hospital Course: 1. treatment of righttibial shaft fracture with intramedu llary nail CPT code 51324 2. Treatment of posterior malleolus fracture CPT code 50260-95 3. treatment of fibula fracture open reduction internal fixation CPT code 63664-54 4. Closed treatment posterior medial tibial plateau fracture, right CPT code 29176 Same procedure as scheduled: Yes Indications: this patient is a 74-year-old female that tripped and fell while she was walking down steps into a sunken room. She had immediate deformity and pain. She was brought [facility] where she was found to have a displaced right tibial shaft fracture as well as a fibula fracture. CT scan was obtained demonstrated posterior malleolus fracture as well as posterior depressed tibial plateau fracture. She is indicated for operative treatment of her unstable tibial shaft fracture. The risks and benefits of the procedure have been discussed with the patient even opportunity to ask questions. The risks of surgery include but are not limited to infection, malunion, nonunion, persistence of pain, damage to nerves and blood vessels, posttraumatic arthritis, DVT, PE, cardiopulmonary complications and . The patient expressed a thorough understanding of the risks and benefits of surgery and has elected to proceed. Consent was signed. We also discussed tobacco use a detrimental effect on healing and bone healing. Discussed vitamin D and calcium intake to aid bone healing. Surgeon: Bridgette Stevens Click Yes if Unassisted: Yes Anesthesia Type: General and Local Operative Notes Findings: Spiral distal shaft fracture. A tibial plateau fracture Minimal posterior medial depression. Posterior malleolus fracture nondisplaced. Displaced distal fibula fracture Closure Type: primary Specimen(s): none sent Prosthetic devices, grafts, tissues, transplants, or devices: tibia: Cuevas and nephew tibia nail Tri Gen 8.5 x 30 2 proximal interlocks 4.5 mm screws. And 2 distal 4.5 mm interlock screws posterior malleolus: 4.0 cannulated screw fibula: 8 hole 2.7 Cuevas and Nephew evos ankle cortical screws proximally locking screws distally closed treatment tibial plateau fracture Estimated Blood Loss (mL): 50 Blood products transfused: none Tourniquet time (min): 23 Patient taken to the operating room for the above-mentioned procedure after being consented to the same. Patient back in her room recovering well as in stable condition. Status at Discharge Cognitive/behavioral status at discharge: at baseline, oriented Functional status at discharge: uses cane/walker Overall status at discharge: patient is progressing back to baseline Time Spent with Patient Time spent: Less than 30 minutes Exam Vital Signs (past 8 hours): - 08/03/20 03:25 08/03/20 08:00 Temperature 98.5 F 97.7 F Pulse Rate 89 77 Respiratory Rate 20 17 Blood Pressure 127/90 141/82 H Pulse Oximetry 93 94 Oxygen Delivery Method Room Air Oxygen Flow Rate 0 Narrative Exam Narrative: Pleasant 74-year-old female resting comfortably in bed in no apparent distress.. Able to move all toes. Dressings at the knee are clean, dry and intact. Calf is soft. Sensation grossly intact distally to light touch. Objective Labs Result Diagrams: 08/02/20 05:13 07/31/20 20:35 PFSH Medical History Anxiety and depression COVID-19 Depression with anxiety Hepatitis B Pancreatitis Suicide attempt Suicide attempt Surgical History H/O: hysterectomy Hx of appendectomy Hx of tonsillectomy Family History Mother Cancer Father Alzheimer disease Social History household members: other Smoking Status: Current every day smoker Tobacco: How many years used: 15 alcohol intake: current substance use type: methamphetamine (History of meth use in last week. ) Discharge Assessment & Plan Assessment and Plan Assessment: Patient progressing as expected. retirement facility placement due to lower extremity weakness and mobility concerns. Patient also has poor social support at home. Plan of Treatment: Discharge to correction facility when bed available. See discharge orders for follow-up and activity. Discharge Plan Discharge Plan Patient Disposition: SNF Under care of provider: Dr. Stevens Consult as needed: Dental, Mental health, Podiatry and Vision Provider Discharge Comment: DC to SNF when bed available Discharge orders & Medications Prescriptions: New acetaminophen 325 mg Tablet 975 mg PO TID 10 Days Qty: 90 RF: 0 docusate sodium [DOK] 100 mg Capsule 100 mg PO BID Qty: 30 RF: 0 gabapentin [Neurontin] 300 mg Capsule 300 mg PO TID Qty: 30 RF: 0 oxycodone 5 mg Tablet 5 mg PO Q4HR Qty: 42 RF: 0 enoxaparin [Lovenox] 40 mg/0.4 mL Syringe 40 mg SUBCUT DAILY 14 Days RF: 0 calcium citrate [Calcitrate] 200 mg (950 mg) Tablet 600 mg PO BIDWM Qty: 60 RF: 0 cholecalciferol (vitamin D3) [Vitamin D3] 125 mcg (5,000 unit) Tablet 5,000 unit PO DAILY Qty: 30 RF: 0 Narcan 4 mg/actuation spray,non-aerosol 1 spray intranasal Q2M Qty: 2 RF: 0 Narcan 4 mg/actuation spray,non-aerosol 1 spray intranasal Q2M Qty: 2 RF: 0 Continued hydroxyzine HCl 25 mg tablet 25 mg PO TID PRN (Reason: anxiety) Qty: 10 RF: 0 fluoxetine [Prozac] 20 mg capsule 20 mg PO DAILY Qty: 30 RF: 0 Follow up/Referrals: Bridgette Stevens MD [Physician] - (10-14 days postoperative) Diet/Activity/Treatments Diet: Diet as Tolerated Activity: Toe-touch weight-bearing right lower extremity Other treatments: At-Home Instructions - Dr. Stevens Surgery: Tibia fracture rodding, ankle fixation Cast/Splint/Dressing Care Instructions 1) Keep cast/dressing clean and dry. 2) May bathe - but cast/dressing must remain dry. 3) Should the cast become wet, you need to come into emergency department or call your physician's clinic immediately for cast removal and replacement. Moisture can cause skin breakdown and lead to infection if left untreated. 4) Do not stick any sharp object down the cast to itch, as this can cause scrapes/cuts/punctures which can lead to infection. 6) Observe for increasing pain in the extremity with the cast, finger/toe-tips turning blue/purple, or numbness and tingling in your toes/fingers. Should any of these symptoms arise, you need to be seen immediately for evaluation of swelling and increasing compartment pressures within your affected extremity. 7) Keep your affected extremity elevated - Toes Above your Nose? - This is zhang in the first two weeks after surgery to minimize swelling. 8) You may ice your extremity, being careful to prevent melting ice from saturating into the splint/cast. Activity No heavy lifting greater than 10 [address] while on narcotic pain medication. Do not get your dressing/cast/splint wet! You must remain toe-touch down or non-weight bearing on your operative extremity. Use crutches or a walker for ambulation. No driving until you are otherwise instructed by your physician. This will be addressed at your first follow-up appointment. Discharge Pain Medications You will be given a prescription for pain medication. You should start taking this the same day after your surgery. Wean off as tolerated. Do not wait to take the pain medication until the pain is severe, as it will be difficult to catch up once this occurs. The pain medication usually reaches its full effect ~1 hour after ingesting. If you have been sent home on Colace, this medication should be taken until you are off all narcotic (i.e. Vicodin, Percocet, Oxycodone, etc) pain medications, to prevent constipation. You may also obtain this or another stool softener over the counter to prevent or alleviate constipation. Percocet or Vicodin have Tylenol in their ingredient lists. You must be careful not to exceed 3,000mg (3 grams) of Tylenol, from all sources, within a single 24-hr period. This means that you may not take more than 10 pills within a 24- hr period. Do NOT take Regular or Extra Strength Tylenol when taking your Percocet or Vicodin medications. -IF you have been given a Toradol/ketorolac prescription, this is a very strong anti-inflammatory. Do not take eavx-umi-lohrsfu anti-inflammatories (ibuprofen, Aleve, Advil, Motrin) while taking the Toradol/ketorolac. Once you are finished with this prescription, then you can resume ycha-tiu-zhzkqyq anti-inflammatories. You can still take your narcotic pain medication and Tylenol while taking the Toradol/ketorolac. -Some common side effects of the narcotic pain medications (Percocet, Oxycodone, Vicodin, etc.) include nausea and itching. Benadryl is a great over the counter medication that helps calm your stomach, decreases your anxiety levels, and minimizes the itching. You can easily purchase this at your local pharmacy as an tast-sre-racicuw medication. Please abide by the instructions as printed on the bottle. If your nausea persists, make sure to take small amounts of crackers or other planning official foods. Follow-Up/Emergency Contacts Please call for an appointment in either [place] or [place], if one has not been scheduled. Follow up 1 week after surgery. [phone] Contact the office if you have any of the following: ? Painful swelling or numbness ? Unrelenting pain ? Fever (over 101?- it is normal to have a low grade fever for the first day or two following surgery) or chills ? Redness around the incisions ? Color changes ? Continuous bleeding or drainage from the incision (a small amount is expected) ? Excessive nausea or vomiting ? Difficulty breathing If you have an emergency that requires immediate attention, proceed to the nearest emergency room. Blood Clot Prophylaxis You will need to complete a total 2-week (14 days) Lovenox injections after maciel rgery, to minimize the risk of blood clots following surgery. Pain Medications: It is the policy of [facility] that narcotic medications will only be refilled during office hours. Additionally, due to the alarming rate of narcotic pain medication abuse/dependence, it has become necessary for physician practices to closely manage patient use of prescription narcotic pain relievers, such as Vicodin ([place]), Percocet, and Oxycodone products. Narcotic pain management in the postoperative period may not exceed 6 weeks. If narcotic pain management is required beyond 90 days, then a referral to a Chronic Pain Specialist will be made. If a request for a medication prescription has been made, the physician must review your chart prior to authorizing the request. Please be patient with office staff. If you call during patient hours, your call may not be returned until the end of the day. A visit will be required before a narcotic prescription can be issued. Dr. Bridgette Stevens [address] [email or web address] Skin/Wound/Dressing Care Report to your healthcare provider any signs of infection, such as:: chills, fever, night sweats, increased pain, unusual drainage and unusual redness Dressing: Keep dressing clean dry and intact. May loosen Matthias wrap if needed Visit Report/Discharge Packet Instructions: DI for Prescription Opioid Use Quality VTE Deep Vein Thrombosis/Pulmonary Embolism Present on Admission: No
[2020-08-03 12:00] VITALS: BP 149/93; PULSE 77; RESP 16; TEMP 37.1; O2SAT 95
[2020-08-03] MEDS: OXYCODONE IR 10 MG TABLET PO ×2 (12:10→14:45)
--- NOTE | 2020-08-03 12:14 | CM.DPNOTE ---
Faxed referral packet to [facility] on 08/03/20 and received fax confirmation. Salena Currie CM Asst.
--- NOTE | 2020-08-03 13:29 | CM.DANOTE ---
DCP/continued: Reviewed chart. Obtained orders from Orthopedics indicating patient medically cleared to d/c to SNF today. ELECTRONIC ENGINEERING DRAFTSPERSON placed call to [facility] and November reports that they are unable to accommodate patient needs. In addition, [facility] both [facility] to [facility]. ELECTRONIC ENGINEERING DRAFTSPERSON called [facility]. Spoke with Rajani whom reports that they can accept today. Orders, copy of scripts, and PASRR [facility]ed to [facility]. ELECTRONIC ENGINEERING DRAFTSPERSON waiting on finalized orders to be signed by Orthopedic team. [facility] in agreement to pay for transport to [facility] via cabulance. [facility] requesting that CM team coordinate transport. Asked [employer]INCIPAL/Salena to arrange transport through [facility]. Met with patient to confirm plan. Patient anxious about discharge but agreeable to short stay. Patient scheduled to be picked up at approximately 3-3:30pm. P: [facility] today. JABIER Miller Discharge Planning/Care Management CM Discharge Assessment Start: 08/03/20 13:28 Freq: Status: Active Protocol: Document 08/03/20 13:28 TRACEE (Rec: 08/03/20 13:29 TRACEE [id number]) Discharge Planning Assessment Assigned Laundry Aide JABIER Miller Advance Directives? No History Provided By Patient,Medical Record Prior Living Arrangements House Household Members other Discharge Plan Halfway Facility Referrals Initiated Halfway Review Status In Process Next Review Type Continued Stay Review
--- NOTE | 2020-08-03 15:16 | PT-IP ANOTE ---
Attempted to see pt at 1512 but she was preparing for transport to SNF.
--- NOTE | 2020-08-04 07:17 | CM.DPNOTE ---
Late entry, faxed DC clinicals to [facility] and received fax confirmation. Salena Currie CM Asst.
== END 2020-08-03 15:20 | DRG 494 ==
LOC: ED 21:19 → AC 21:39
PROVIDERS: Admitting Provider Orthopaedic Surgery Foot and Ankle Surgery; Emergency Provider Emergency Medicine; Referring Provider Emergency Medicine; Visit Provider Orthopaedic Surgery Foot and Ankle Surgery
PROC: 0QHJ04Z Insertion of Internal Fixation Device into Right Fibula, Open Approach (ICD-10-PCS; CPT 27759; principal; 2020-08-01 13:00)
PROC: 0SSF04Z Reposition Right Ankle Joint with Internal Fixation Device, Open Approach (ICD-10-PCS; 2020-08-01 13:00)
DX: S82.201A Unspecified fracture of shaft of right tibia, initial encounter for closed fracture (principal); S82.832A Other fracture of upper and lower end of left fibula, initial encounter for closed fracture; S82.141A Displaced bicondylar fracture of right tibia, initial encounter for closed fracture; F17.210 Nicotine dependence, cigarettes, uncomplicated; F41.9 Anxiety disorder, unspecified; F32.9 Major depressive disorder, single episode, unspecified; Z20.822 Contact with and (suspected) exposure to COVID-19; W10.9XXA Fall (on) (from) unspecified stairs and steps, initial encounter; Y92.008 Other place in unspecified non-institutional (private) residence as the place of occurrence of the external cause; Z86.16 Personal history of COVID-19
CPT/HCPCS: 27752; 29515; 71045; 73590; 73610; 73700; 76000; 80048; 80305; 85025; 85027; 87635; 93005; 93010; 96374; 97116; 97161; 99283; 99284; C9803; J0171; J0330; J0690; J1100; J1170; J1650; J1885; J2060; J2405; J2704; J3010

== ENCOUNTER 2022-09-23 21:23 | Emergency (ER) | payer MEDICARE, SELFPAY ==
[2020-07-31 22:29] VITALS: BMI 21.1
[2022-09-23 21:51] VITALS: BP 132/83; PULSE 110; RESP 16; TEMP 36.6; O2SAT 97; BMI 20.3
--- NOTE | 2022-09-23 22:00 | PC.NURSE ---
when pt was called to triage and asked to sit in the chair pt made the comment speaking very low stating I'm not leaving here tonight then very quickly stated just kidding, then when pt was asked to have a seat back in the waiting room pt stated I don't want to then quickly stated just kidding,
[2022-09-24] VITALS (16 sets, daily range): BP systolic 127–147; BP diastolic 73–98; PULSE 78–112; RESP 18; O2SAT 94–100
--- NOTE | 2022-09-24 00:30 | PC.NURSE ---
pt denies any injury just c/o lower back pain
--- NOTE | 2022-09-24 01:11 | ED_ITS ---
HPI - Back Pain/Injury <Guadalupe Kwok, DO - Last Filed: 09/24/22 18:24> General Chief Complaint: Back Pain/Injury Stated Complaint: Back pain, Ear pain Time Seen by Provider: 09/24/22 01:11 Source: patient History of Present Illness HPI Narrative: This is a 76-year-old female history of tobacco use, bipolar and alcohol use. Patient presents with complaint of ear pain. She states it is her left side and thoughts of suicide. Patient states she is had pain in her left for about 2 days. She is had a little bit of sore throat. She denies fevers she is had some nasal congestion some mild cough. She denies any swelling of her airway, her neck, no difficulty or changes to her voice. No difficulty with swallowing. She denies any chest pain or shortness of breath. No nausea or vomiting. No diarrhea constipation. No urinary symptoms. Patient notes that she has psychiatric history. She is not on any daily medications but she states she is taken a lot of medications in the past. She states she is had a hysterectomy. She states she smokes about a half pack daily, she states she drinks alcohol 1 or 2 drinks daily. She denies any THC or illicit. She states that she is homeless. Her partner recently left the area. Related Data Previous Rx's Medication Instructions Recorded fluoxetine 20 mg capsule (Prozac) 20 mg PO DAILY #30 caps 07/15/19 hydroxyzine HCl 25 mg tablet 25 mg PO TID PRN anxiety #10 tabs 09/20/19 calcium citrate 200 mg (950 mg) 600 mg PO BIDWM #60 tabs 08/02/20 tablet (Calcitrate) cholecalciferol (vitamin D3) 125 5,000 unit PO DAILY #30 tabs 08/02/20 mcg (5,000 unit) tablet (Vitamin D3) docusate sodium 100 mg capsule 100 mg PO BID #30 caps 08/02/20 (DOK) gabapentin 300 mg capsule 300 mg PO TID #30 caps 08/02/20 (Neurontin) naloxone 4 mg/actuation nasal 1 spray intranasal Q2M #2 ea 08/02/20 spray (Narcan) naloxone 4 mg/actuation nasal 1 spray intranasal Q2M #2 ea 08/02/20 spray (Narcan) oxycodone 5 mg tablet 5 mg PO Q4HR #42 tabs 08/02/20 Allergies Allergy/AdvReac Type Severity Reaction Status Date / Time No Known Drug Allergies Allergy Verified 07/31/20 20:30 Review of Systems <Guadalupe Kwok DO - Last Filed: 09/24/22 18:24> Review of Systems ROS Unobtainable: All systems reviewed & are unremarkable except as noted in HPI and below Patient History <Guadaluep Kwok DO - Last Filed: 09/24/22 18:24> Medical History Anxiety and depression COVID-19 Depression with anxiety Hepatitis B Pancreatitis Suicide attempt Suicide attempt Surgical History H/O: hysterectomy Hx of appendectomy Hx of tonsillectomy Family History Mother Cancer Father Alzheimer disease Social History household members: other Smoking Status: Current every day smoker Tobacco: How many years used: 15 alcohol intake: current substance use type: methamphetamine (History of meth use in last week. ) Smoking Status: Current every day smoker alcohol intake frequency: 0-2 drinks per day Alcohol type: beer Substance Use Type: does not use Exam <Guadalupe Kwok DO - Last Filed: 09/24/22 18:24> Narrative Exam Narrative: GEN: Elderly, alert and oriented x 3, patient appears to be in moderate distress. Patient has her personal effects with her but is clean, well dressed and well organized. HEENT: Atraumatic, pupils are equal round reactive to light, extraocular movements are intact, nares are clear, TMs are clear with no fluid, there is a small amount of cerumen but TM is visualized. No erythema, no bulge. Throat is clear without any exudates, erythema, tonsillar enlargement or uvular deviation HEART: Regular rate and rhythm without murmur, clicks, rubs. LUNGS:Lungs clear to auscultation, no wheezes, rales, crackles, chest moves symmetrically ABD:bowel sounds normal, soft, non-tender, no guarding, rebound, rigidity, no masses noted, no hepatosplenomegaly :No CVA tenderness MSCL: Non-tender, no muscle atrophy, muscles strength 5/5 upper and lower extremities, full range of motion, normal gait NEURO:CN 2-12 intact, sensation normal SKIN: No rash, erythema or other skin changes PSYCH: Depression, suicidal thoughts, no intent. No thoughts of harming others. Does not admit to any hallucinations, does not appear to be responding to any stimuli. Patient's appropriate in her thoughts and content. No pres sured speech. Initial Vital Signs Initial Vital Signs: Vital Signs Temperature 97.8 F 09/23/22 21:51 Pulse Rate 110 H 09/23/22 21:51 Respiratory Rate 16 09/23/22 21:51 Blood Pressure 132/83 09/23/22 21:51 Pulse Oximetry 97 09/23/22 21:51 Oxygen Delivery Method Room Air 09/23/22 21:51 <Sriram Jaimes DO - Last Filed: 09/24/22 13:51> Initial Vital Signs Initial Vital Signs: Vital Signs Temperature 97.8 F 09/23/22 21:51 Pulse Rate 110 H 09/23/22 21:51 Respiratory Rate 16 09/23/22 21:51 Blood Pressure 132/83 09/23/22 21:51 Pulse Oximetry 97 09/23/22 21:51 Oxygen Delivery Method Room Air 09/23/22 21:51 Course <Guadalupe Kwok DO - Last Filed: 09/24/22 18:24> Orders Ordered: Discontinued Medications Ibuprofen (Ibuprofen 400 Mg Tablet) 800 mg PO NOW ONE Stop: 09/24/22 01:28 Last Admin: 09/24/22 01:50 Dose: 800 mg Documented By: IVANA Vital Signs Vital signs: Vital Signs - 8 hr 09/24/22 12:00 Pulse Rate 85 Respiratory Rate 18 Pulse Oximetry 98 Oxygen Delivery Method Room Air <Sriram Jaimes DO - Last Filed: 09/24/22 13:51> Orders Ordered: Discontinued Medications Ibuprofen (Ibuprofen 400 Mg Tablet) 800 mg PO NOW ONE Stop: 09/24/22 01:28 Last Admin: 09/24/22 01:50 Dose: 800 mg Documented By: IVANA Vital Signs Vital signs: Vital Signs - 8 hr 09/24/22 12:00 Pulse Rate 85 Respiratory Rate 18 Pulse Oximetry 98 Oxygen Delivery Method Room Air MDM - Back Pain/Injury <Guadalupe Kwok, DO - Last Filed: 09/24/22 18:24> Lab Data 09/24/22 01:58 09/24/22 01:58 Labs: Lab Results 09/23/22 09/23/22 09/24/22 Range/Units 23:20 23:20 01:40 WBC (4.5-11.0) X10^3/uL RBC (4.0-5.2) X10^6/uL Hgb (12.0-16.0) g/dL Hct (36-46) % MCV (80-100) fL MCH (26-34) PG MCHC (30-36) % RDW (11.6-14.8) % Plt Count (150-400) X10^3/uL Neut % (Auto) (50-75) % Lymph % (Auto) (25-40) % [place] % (Auto) (3-14) % Eos % (Auto) (2-4) % Baso % (Auto) (0-2) % Neut # (Auto) (4401-5676) /uL Lymph # (Auto) (2354-5132) /uL [place] # (Auto) (0-900) /uL Eos # (Auto) (0-450) /uL Baso # (Auto) (0-100) /uL Sodium (137-145) mmol/L Potassium (3.4-5.1) mmol/L Chloride (98-107) mmol/L Carbon Dioxide (22-32) mmol/L BUN (7-17) mg/dL Creatinine (0.52-1.04) mg/dL Estimated GFR (>60) mL/min BUN/Creatinine Ratio (6-22) Glucose (80-110) mg/dL Calcium (8.4-10.2) mg/dL Total Bilirubin (0.2-1.3) mg/dL AST (14-36) IU/L ALT (<35) IU/L Alkaline Phosphatase (38-126) U/L Total Protein (6.3-8.2) g/dL Albumin (3.5-5.0) g/dL Globulin (1.7-4.1) g/dL Albumin/Globulin Ratio (1.0-2.8) Lipase (23-300) U/L TSH (0.47-4.68) uIU/mL Urine RBC None seen (0-5/HPF) Urine WBC 1-5/hpf (0-5/HPF) Ur Squamous Epith Cells 1-5 /hpf (0-5/HPF) Ur Transition Epith Cell 0-1/hpf (0-5/HPF) Amorphous Sediment 1+ Urine Bacteria Few (2-10) H (None) Hyaline Casts 1-5/lpf (None) Urine Mucus 1+ H (Negative) Ur Culture Indicated? Specimen cultured Micro UA Comment . U Opiates 300ng/mL cut Negative (Negative) Ur Oxycodone Screen Negative (Negative) Urine Methadone Screen Negative (Negative) Ur Barbiturates Screen Negative (Negative) U Tricyclic Antidepress Negative (Negative) Ur Phencyclidine Scrn Negative (Negative) Ur Amphetamines Screen Positive H (Negative) U Methamphetamines Scrn Positive H (Negative) Ur MDMA Scrn (Ecstasy) Negative (Negative) U Benzodiazepines Scrn Negative (Negative) Urine Cocaine Screen Negative (Negative) U Marijuana (THC) Screen Negative (Negative) Ethyl Alcohol ( - 10) mg/dL SARS-CoV-2 (PCR) Negative (Negative) 09/24/22 09/24/22 09/24/22 Range/Units 01:58 01:58 01:58 WBC 7.7 (4.5-11.0) X10^3/uL RBC 4.35 (4.0-5.2) X10^6/uL Hgb 14.6 (12.0-16.0) g/dL Hct 42.8 (36-46) % MCV 98.5 (80-100) fL MCH 33.6 (26-34) PG MCHC 34.2 (30-36) % RDW 14.0 (11.6-14.8) % Plt Count 199 (150-400) X10^3/uL Neut % (Auto) 69.2 (50-75) % Lymph % (Auto) 19.9 L (25-40) % [place] % (Auto) 8.3 (3-14) % Eos % (Auto) 1.7 L (2-4) % Baso % (Auto) 0.9 (0-2) % Neut # (Auto) 5300 (1435-2191) /uL Lymph # (Auto) 1500 (7720-1331) /uL [place] # (Auto) 600 (0-900) /uL Eos # (Auto) 100 (0-450) /uL Baso # (Auto) 100 (0-100) /uL Sodium 139 (137-145) mmol/L Potassium 3.5 (3.4-5.1) mmol/L Chloride 106 (98-107) mmol/L Carbon Dioxide 23 (22-32) mmol/L BUN 19 H (7-17) mg/dL Creatinine 1.20 H (0.52-1.04) mg/dL Estimated GFR 48 L (>60) mL/min BUN/Creatinine Ratio 15.8 (6-22) Glucose 100 (80-110) mg/dL Calcium 8.9 (8.4-10.2) mg/dL Total Bilirubin 2.1 H (0.2-1.3) mg/dL AST 68 H (14-36) IU/L ALT 38 H (<35) IU/L Alkaline Phosphatase 104 (38-126) U/L Total Protein 8.3 H (6.3-8.2) g/dL Albumin 4.6 (3.5-5.0) g/dL Globulin 3.7 (1.7-4.1) g/dL Albumin/Globulin Ratio 1.2 (1.0-2.8) Lipase (23-300) U/L TSH 1.75 (0.47-4.68) uIU/mL Urine RBC (0-5/HPF) Urine WBC (0-5/HPF) Ur Squamous Epith Cells (0-5/HPF) Ur Transition Epith Cell (0-5/HPF) Amorphous Sediment Urine Bacteria (None) Hyaline Casts (None) Urine Mucus (Negative) Ur Culture Indicated? Micro UA Comment U Opiates 300ng/mL cut (Negative) Ur Oxycodone Screen (Negative) Urine Methadone Screen (Negative) Ur Barbiturates Screen (Negative) U Tricyclic Antidepress (Negative) Ur Phencyclidine Scrn (Negative) Ur Amphetamines Screen (Negative) U Methamphetamines Scrn (Negative) Ur MDMA Scrn (Ecstasy) (Negative) U Benzodiazepines Scrn (Negative) Urine Cocaine Screen (Negative) U Marijuana (THC) Screen (Negative) Ethyl Alcohol < 10 ( - 10) mg/dL SARS-CoV-2 (PCR) (Negative) 09/24/22 Range/Units 01:58 WBC (4.5-11.0) X10^3/uL RBC (4.0-5.2) X10^6/uL Hgb (12.0-16.0) g/dL Hct (36-46) % MCV (80-100) fL MCH (26-34) PG MCHC (30-36) % RDW (11.6-14.8) % Plt Count (150-400) X10^3/uL Neut % (Auto) (50-75) % Lymph % (Auto) (25-40) % [place] % (Auto) (3-14) % Eos % (Auto) (2-4) % Baso % (Auto) (0-2) % Neut # (Auto) (1142-8583) /uL Lymph # (Auto) (8249-7235) /uL [place] # (Auto) (0-900) /uL Eos # (Auto) (0-450) /uL Baso # (Auto) (0-100) /uL Sodium (137-145) mmol/L Potassium (3.4-5.1) mmol/L Chloride (98-107) mmol/L Carbon Dioxide (22-32) mmol/L BUN (7-17) mg/dL Creatinine (0.52-1.04) mg/dL Estimated GFR (>60) mL/min BUN/Creatinine Ratio (6-22) Glucose (80-110) mg/dL Calcium (8.4-10.2) mg/dL Total Bilirubin (0.2-1.3) mg/dL AST (14-36) IU/L ALT (<35) IU/L Alkaline Phosphatase (38-126) U/L Total Protein (6.3-8.2) g/dL Albumin (3.5-5.0) g/dL Globulin (1.7-4.1) g/dL Albumin/Globulin Ratio (1.0-2.8) Lipase 107 (23-300) U/L TSH (0.47-4.68) uIU/mL Urine RBC (0-5/HPF) Urine WBC (0-5/HPF) Ur Squamous Epith Cells (0-5/HPF) Ur Transition Epith Cell (0-5/HPF) Amorphous Sediment Urine Bacteria (None) Hyaline Casts (None) Urine Mucus (Negative) Ur Culture Indicated? Micro UA Comment U Opiates 300ng/mL cut (Negative) Ur Oxycodone Screen (Negative) Urine Methadone Screen (Negative) Ur Barbiturates Screen (Negative) U Tricyclic Antidepress (Negative) Ur Phencyclidine Scrn (Negative) Ur Amphetamines Screen (Negative) U Methamphetamines Scrn (Negative) Ur MDMA Scrn (Ecstasy) (Negative) U Benzodiazepines Scrn (Negative) Urine Cocaine Screen (Negative) U Marijuana (THC) Screen (Negative) Ethyl Alcohol ( - 10) mg/dL SARS-CoV-2 (PCR) (Negative) Urine Dip Bedside Urine Glucose Negative Bedside Urine Bilirubin - Negative Bedside Urine Ketone - Negative Urine Specific [place] 1.025 Bedside Urine Occult Blood - Negative Bedside Urine pH 5.5 Bedside Urine Protein +/- 15 Bedside Urine Urobilinogen - Negative Bedside Urine Nitrite - Negative Bedside Urine Leukocytes +/- 15 Esterase MDM Narrative Medical decision making narrative: This is a 76-year-old female who complains with ear pain, she also notes that she is homeless her partner recently left the area and she is having issues with resources locally. She has history of bipolar she states she is been on medications in the past she states she is not taking anything recently. She d oes not appear to be manic, she does express some depressive thoughts but seems to be more related to her most recent changes in her relationship and current situation. Patient does express some thoughts of drinking herself to oblivious in but does not have a plan otherwise and does not express any intent of harming herself. Patient states I just do not know what is wrong with myself and why I can not fix myself. <Sriram Jaimes, DO - Last Filed: 09/24/22 13:51> Lab Data Labs: Lab Results 09/23/22 09/23/22 09/24/22 Range/Units 23:20 23:20 01:40 WBC (4.5-11.0) X10^3/uL RBC (4.0-5.2) X10^6/uL Hgb (12.0-16.0) g/dL Hct (36-46) % MCV (80-100) fL MCH (26-34) PG MCHC (30-36) % RDW (11.6-14.8) % Plt Count (150-400) X10^3/uL Neut % (Auto) (50-75) % Lymph % (Auto) (25-40) % [place] % (Auto) (3-14) % Eos % (Auto) (2-4) % Baso % (Auto) (0-2) % Neut # (Auto) (6931-4439) /uL Lymph # (Auto) (7606-9736) /uL [place] # (Auto) (0-900) /uL Eos # (Auto) (0-450) /uL Baso # (Auto) (0-100) /uL Sodium (137-145) mmol/L Potassium (3.4-5.1) mmol/L Chloride (98-107) mmol/L Carbon Dioxide (22-32) mmol/L BUN (7-17) mg/dL Creatinine (0.52-1.04) mg/dL Estimated GFR (>60) mL/min BUN/Creatinine Ratio (6-22) Glucose (80-110) mg/dL Calcium (8.4-10.2) mg/dL Total Bilirubin (0.2-1.3) mg/dL AST (14-36) IU/L ALT (<35) IU/L Alkaline Phosphatase (38-126) U/L Total Protein (6.3-8.2) g/dL Albumin (3.5-5.0) g/dL Globulin (1.7-4.1) g/dL Albumin/Globulin Ratio (1.0-2.8) Lipase (23-300) U/L TSH (0.47-4.68) uIU/mL Urine RBC None seen (0-5/HPF) Urine WBC 1-5/hpf (0-5/HPF) Ur Squamous Epith Cells 1-5 /hpf (0-5/HPF) Ur Transition Epith Cell 0-1/hpf (0-5/HPF) Amorphous Sediment 1+ Urine Bacteria Few (2-10) H (None) Hyaline Casts 1-5/lpf (None) Urine Mucus 1+ H (Negative) Ur Culture Indicated? Specimen cultured Micro UA Comment . U Opiates 300ng/mL cut Negative (Negative) Ur Oxycodone Screen Negative (Negative) Urine Methadone Screen Negative (Negative) Ur Barbiturates Screen Negative (Negative) U Tricyclic Antidepress Negative (Negative) Ur Phencyclidine Scrn Negative (Negative) Ur Amphetamines Screen Positive H (Negative) U Methamphetamines Scrn Positive H (Negative) Ur MDMA Scrn (Ecstasy) Negative (Negative) U Benzodiazepines Scrn Negative (Negative) Urine Cocaine Screen Negative (Negative) U Marijuana (THC) Screen Negative (Negative) Ethyl Alcohol ( - 10) mg/dL SARS-CoV-2 (PCR) Negative (Negative) 09/24/22 09/24/22 09/24/22 Range/Units 01:58 01:58 01:58 WBC 7.7 (4.5-11.0) X10^3/uL RBC 4.35 (4.0-5.2) X10^6/uL Hgb 14.6 (12.0-16.0) g/dL Hct 42.8 (36-46) % MCV 98.5 (80-100) fL MCH 33.6 (26-34) PG MCHC 34.2 (30-36) % RDW 14.0 (11.6-14.8) % Plt Count 199 (150-400) X10^3/uL Neut % (Auto) 69.2 (50-75) % Lymph % (Auto) 19.9 L (25-40) % [place] % (Auto) 8.3 (3-14) % Eos % (Auto) 1.7 L (2-4) % Baso % (Auto) 0.9 (0-2) % Neut # (Auto) 5300 (4081-7378) /uL Lymph # (Auto) 1500 (4993-8893) /uL [place] # (Auto) 600 (0-900) /uL Eos # (Auto) 100 (0-450) /uL Baso # (Auto) 100 (0-100) /uL Sodium 139 (137-145) mmol/L Potassium 3.5 (3.4-5.1) mmol/L Chloride 106 (98-107) mmol/L Carbon Dioxide 23 (22-32) mmol/L BUN 19 H (7-17) mg/dL Creatinine 1.20 H (0.52-1.04) mg/dL Estimated GFR 48 L (>60) mL/min BUN/Creatinine Ratio 15.8 (6-22) Glucose 100 (80-110) mg/dL Calcium 8.9 (8.4-10.2) mg/dL Total Bilirubin 2.1 H (0.2-1.3) mg/dL AST 68 H (14-36) IU/L ALT 38 H (<35) IU/L Alkaline Phosphatase 104 (38-126) U/L Total Protein 8.3 H (6.3-8.2) g/dL Albumin 4.6 (3.5-5.0) g/dL Globulin 3.7 (1.7-4.1) g/dL Albumin/Globulin Ratio 1.2 (1.0-2.8) Lipase (23-300) U/L TSH 1.75 (0.47-4.68) uIU/mL Urine RBC (0-5/HPF) Urine WBC (0-5/HPF) Ur Squamous Epith Cells (0-5/HPF) Ur Transition Epith Cell (0-5/HPF) Amorphous Sediment Urine Bacteria (None) Hyaline Casts (None) Urine Mucus (Negative) Ur Culture Indicated? Micro UA Comment U Opiates 300ng/mL cut (Negative) Ur Oxycodone Screen (Negative) Urine Methadone Screen (Negative) Ur Barbiturates Screen (Negative) U Tricyclic Antidepress (Negative) Ur Phencyclidine Scrn (Negative) Ur Amphetamines Screen (Negative) U Methamphetamines Scrn (Negative) Ur MDMA Scrn (Ecstasy) (Negative) U Benzodiazepines Scrn (Negative) Urine Cocaine Screen (Negative) U Marijuana (THC) Screen (Negative) Ethyl Alcohol < 10 ( - 10) mg/dL SARS-CoV-2 (PCR) (Negative) 09/24/22 Range/Units 01:58 WBC (4.5-11.0) X10^3/uL RBC (4.0-5.2) X10^6/uL Hgb (12.0-16.0) g/dL Hct (36-46) % MCV (80-100) fL MCH (26-34) PG MCHC (30-36) % RDW (11.6-14.8) % Plt Count (150-400) X10^3/uL Neut % (Auto) (50-75) % Lymph % (Auto) (25-40) % [place] % (Auto) (3-14) % Eos % (Auto) (2-4) % Baso % (Auto) (0-2) % Neut # (Auto) (9648-0733) /uL Lymph # (Auto) (2740-0118) /uL [place] # (Auto) (0-900) /uL Eos # (Auto) (0-450) /uL Baso # (Auto) (0-100) /uL Sodium (137-145) mmol/L Potassium (3.4-5.1) mmol/L Chloride (98-107) mmol/L Carbon Dioxide (22-32) mmol/L BUN (7-17) mg/dL Creatinine (0.52-1.04) mg/dL Estimated GFR (>60) mL/min BUN/Creatinine Ratio (6-22) Glucose (80-110) mg/dL Calcium (8.4-10.2) mg/dL Total Bilirubin (0.2-1.3) mg/dL AST (14-36) IU/L ALT (<35) IU/L Alkaline Phosphatase (38-126) U/L Total Protein (6.3-8.2) g/dL Albumin (3.5-5.0) g/dL Globulin (1.7-4.1) g/dL Albumin/Globulin Ratio (1.0-2.8) Lipase 107 (23-300) U/L TSH (0.47-4.68) uIU/mL Urine RBC (0-5/HPF) Urine WBC (0-5/HPF) Ur Squamous Epith Cells (0-5/HPF) Ur Transition Epith Cell (0-5/HPF) Amorphous Sediment Urine Bacteria (None) Hyaline Casts (None) Urine Mucus (Negative) Ur Culture Indicated? Micro UA Comment U Opiates 300ng/mL cut (Negative) Ur Oxycodone Screen (Negative) Urine Methadone Screen (Negative) Ur Barbiturates Screen (Negative) U Tricyclic Antidepress (Negative) Ur Phencyclidine Scrn (Negative) Ur Amphetamines Screen (Negative) U Methamphetamines Scrn (Negative) Ur MDMA Scrn (Ecstasy) (Negative) U Benzodiazepines Scrn (Negative) Urine Cocaine Screen (Negative) U Marijuana (THC) Screen (Negative) Ethyl Alcohol ( - 10) mg/dL SARS-CoV-2 (PCR) (Negative) Urine Dip Bedside Urine Glucose Negative Bedside Urine Bilirubin - Negative Bedside Urine Ketone - Negative Urine Specific [place] 1.025 Bedside Urine Occult Blood - Negative Bedside Urine pH 5.5 Bedside Urine Protein +/- 15 Bedside Urine Urobilinogen - Negative Bedside Urine Nitrite - Negative Bedside Urine Leukocytes +/- 15 Esterase MDM Narrative Medical decision making narrative: This is a 76-year-old female who complains with ear pain, she also notes that she is homeless her partner recently left the area and she is having issues with resources locally. She has history of bipolar she states she is been on medic ations in the past she states she is not taking anything recently. She does not appear to be manic, she does express some depressive thoughts but seems to be more related to her most recent changes in her relationship and current situation. Patient does express some thoughts of drinking herself to oblivious in but does not have a plan otherwise and does not express any intent of harming herself. Patient states I just do not know what is wrong with myself and why I can not fix myself. [0730] (Theodore) Patient received in sign out from [Sundar]. I have reviewed the clinical course and performed an independent history and physical exam. Patient is resting comfortably, not suicidal or homicidal, patient awaiting SHANK SORTER consult. 1230 -per SHANK SORTER note, please see for details, [place] police were contacted as there was some concern about the potential of domestic violence. They have seen and evaluated the patient and there is no further involvement expected as there does not appear to be any evidence of domestic violence. [facility] has made multiple attempts at finding intermediate or hotel voucher and currently none are available. I was unable to get into see the patient to discuss formal discharge options prior to her leaving but at time of discharge she was awake, alert and oriented, walking a straight line, demonstrating capacity to make her own decisions without evidence of suicidal or homicidal ideation Discharge Plan Departure Patient Disposition: Home Clinical Impression: Acute ear pain, Pharyngitis, Depression Activity Restrictions/Additional Instructions: There is no evidence of an emergent or life threatening illness at this time, but follow up with your doctor in 1-2 days is recommended nonetheless to continue to rule out serious underlying causes of your symptoms. Please call the office for an appointment. Please return to the Emergency Department for any worsening or persistent symptoms. Please take medications as directed. *If you feel that you are entering into mental health crisis you have multiple options 1. Return to the ER immediately 2. Call the Crisis Line at [phone] 3. Send an anonymous text by sending the word Guy to [phone] 4. Navigate your web browser to [employer] to engage in anonymous chat with a mental health worker Prescriptions: No Action hydroxyzine HCl 25 mg tablet 25 mg PO TID PRN (Reason: anxiety) Qty: 10 0RF fluoxetine [Prozac] 20 mg capsule 20 mg PO DAILY Qty: 30 0RF docusate sodium [DOK] 100 mg Capsule 100 mg PO BID Qty: 30 0RF gabapentin [Neurontin] 300 mg Capsule 300 mg PO TID Qty: 30 0RF oxycodone 5 mg Tablet 5 mg PO Q4HR Qty: 42 0RF calcium citrate [Calcitrate] 200 mg (950 mg) Tablet 600 mg PO BIDWM Qty: 60 0RF cholecalciferol (vitamin D3) [Vitamin D3] 125 mcg (5,000 unit) Tablet 5,000 unit PO DAILY Qty: 30 0RF Narcan 4 mg/actuation spray,non-aerosol 1 spray intranasal Q2M Qty: 2 0RF Rx Instructions: spray 1 dose into ONE nostril; alternate nostrils w each dose until help arrives Narcan 4 mg/actuation spray,non-aerosol 1 spray intranasal Q2M Qty: 2 0RF Rx Instructions: spray 1 dose into ONE nostril; alternate nostrils w each dose until help arrives Referrals: [facility] [Outside] Stand Alone Forms: Patient Portal/API
[2022-09-24] MEDS: IBUPROFEN 400 MG TABLET 800 MG PO (01:50)
[2022-09-24 02:09] LABS: Add Manual Diff / Slide Review NO; Basophils Absolute Auto 100 /uL (0-100); Basophils Percent Auto 0.9 % (0-2); Eosinophils Absolute Auto 100 /uL (0-450); Eosinophils Percent Auto 1.7 % (2-4); Hematocrit 42.8 % (36-46); Hemoglobin 14.6 g/dL (12.0-16.0); Lymphocytes Absolute Auto 1500 /uL (1100-4500); Lymphocytes Percent Auto 19.9 % (25-40); Mean Corpuscular HGB Conc 34.2 % (30-36); Mean Corpuscular Hemoglobin 33.6 PG (26-34); Mean Corpuscular Volume 98.5 fL (80-100); Monocytes Absolute Auto 600 /uL (0-900); Monocytes Percent Auto 8.3 % (3-14); Neutrophils Absolute Auto 5300 /uL (1500-7000); Neutrophils Percent Auto 69.2 % (50-75); Platelet Count 199 X10^3/uL (150-400); Red Blood Cell Count 4.35 X10^6/uL (4.0-5.2); White Blood Cell Count 7.7 X10^3/uL (4.5-11.0)
[2022-09-24 02:18] LABS: Alanine Aminotransferase 38 IU/L (<35); Albumin 4.6 g/dL (3.5-5.0); Albumin Globulin Ratio 1.2 (1.0-2.8); Alkaline Phosphatase 104 U/L (38-126); Aspartate Aminotransferase 68 IU/L (14-36); BUN Creatinine Ratio 15.8 (6-22); Bilirubin Total 2.1 mg/dL (0.2-1.3); Blood Urea Nitrogen 19 mg/dL (7-17); Calcium 8.9 mg/dL (8.4-10.2); Carbon Dioxide 23 mmol/L (22-32); Chloride 106 mmol/L (98-107); Estimated Glomerular Filt Rate 48 mL/min (>60); Ethanol (ETOH) < 10 mg/dL; Globulin 3.7 g/dL (1.7-4.1); Glucose 100 mg/dL (80-110); HEMOLYSIS < 15 (0-50); Potassium 3.5 mmol/L (3.4-5.1); Sodium 139 mmol/L (137-145); Total Protein 8.3 g/dL (6.3-8.2)
--- NOTE | 2022-09-24 02:21 | PC.NURSE ---
ambulated pt to the bathroom, so she would not forget to get a sample, pt came out of bathroom stating she missed the cup but would try again in a minute
[2022-09-24 02:45] LABS: COVID19 -Nasal RAPID Negative (Negative)
[2022-09-24 02:48] LABS: TSH w/ Reflex to FT4 1.75 uIU/mL (0.47-4.68)
[2022-09-24 04:07] LABS: UR Morphine/Opiate cutoff 300 Negative (Negative); Ur Creatinine Normal (Normal); Ur Specific Gravity Normal (Normal); Urine Amphetamines Positive (Negative); Urine Barbiturates Negative (Negative); Urine Benzodiazepines Negative (Negative); Urine Cocaine Negative (Negative); Urine MDMA Negative (Negative); Urine Methadone Negative (Negative); Urine Methamphetamines Positive (Negative); Urine Oxycodone Negative (Negative); Urine Phencyclidine Negative (Negative); Urine Tetrahydrocannabinol Negative (Negative); Urine Tricyclic Antidepressant Negative (Negative); Urine pH Normal (Normal)
[2022-09-24 04:14] LABS: Amorphous Sediment Urine 1+; Bacteria Urine Few (2-10); Hyaline Casts Urine 1-5/LPF; RBC Urine None Seen (0-5/HPF); Squamous Epithelial Cell Urine 1-5 /HPF (0-5/HPF); WBC Urine 1-5/HPF (0-5/HPF)
[2022-09-24 04:15] LABS: Culture Indicated Urine Specimen Cultured; Mucus Urine 1+ (Negative); Transitional Epi Cells Urine 0-1/HPF (0-5/HPF)
[2022-09-24 04:18] LABS: Lipase 107 U/L (23-300)
--- NOTE | 2022-09-24 08:12 | PC.NURSE ---
This RNs first contact with patient. Pt resting with eyes closed at shift change. Pt states she slept through most of the night. Pt tearful, states she is depressed and has no where to go. States no friends/family to rely on and getting too old to be on the street. Pt wants to speak with a DIRECTOR INSTRUMENTATION today, physician supports her staying in ED for DIRECTOR INSTRUMENTATION consult.
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
--- NOTE | 2022-09-24 13:38 | PC.NURSE ---
Pt given sandwich, pudding, applesauce, string cheese and gingerale. AOx4. VSS. In no apparent distress.
== END 2022-09-24 13:29 | disposition home or self-care (01) ==
PROVIDERS: Emergency Medicine; Emergency Provider Emergency Medicine
DX: H92.02 Otalgia, left ear (principal); J02.9 Acute pharyngitis, unspecified; F32.A Depression, unspecified; Z20.822 Contact with and (suspected) exposure to COVID-19; F17.210 Nicotine dependence, cigarettes, uncomplicated
CPT/HCPCS: 36415; 80053; 80305; 80320; 81003; 81015; 83690; 84443; 85025; 87086; 87635; 99283; C9803